=== PATIENT | male | born 1950 | race Caucasian/White ===

== ENCOUNTER → 2016-11-29 | Outpatient (CLI) | payer MEDICARE ==
[~2016-11-29] MED LIST: REGADENOSON 0.4 MG/5 ML SYRINGE IV ONE
--- NOTE | 2016-11-29 10:44 | NM ---
EXAMINATION TYPE: NM stress lexiscan cardiolite DATE OF EXAM: 11/29/2016 COMPARISON: NONE HISTORY: Chest pain, shortness of breath, palpitations, hyperlipidemia, diabetes, hypertension, and f amily history of coronary artery disease. TECHNIQUE: After the intravenous administration of 10.9 mCi Tc 99m Sestamibi - Cardiolite resting SP ECT images acquired 60 minutes post injection. The patient received 0.4mg Lexiscan, 29 mCi Tc 99m Sestamibi - Stress images obtained 37 minutes post injection FINDINGS: Three segment reversible perfusion defect is seen in the interseptal wall image distribution of the r ight coronary artery involving the mid inferior, basal inferior, and basal inferior septal segments. Additional approximately two segment reversible defect is seen apical anterior and mid anterior segme nts with some involvement of the apex. There is an elevated TID of 1.39. This may represent cardiomyopathy and/or balanced 3 vessel ischemia . There is an abnormal estimated left ventricular ejection fraction of 49 %. IMPRESSION: 1. Reversible perfusion defects indicating ischemia in the distribution of the left anterior descendi ng and right coronary arteries. These are 2-3 segment defects. Additionally there is an elevated TID that may represent balanced 3 vessel ischemia and/or cardiomyopathy. 2. Abnormal estimated left ventricular ejection fraction of 49%.
--- NOTE | 2016-11-29 11:06 | EST ---
EXERCISE STRESS DATE OF SERVICE: 11/29/2016 AGE: 66 SEX: Male HT: 5'9" WT: 225 PROTOCOL: Lexiscan Cardiolite STAGE: DURATION OF EXERCISE: HEART RATE REST: 66 BLOOD PRESSURE REST: 138/73 MAXIMUM HEART RATE ACHIEVED: 79 MAXIMUM BLOOD PRESSURE: 158/98 85% MPHR: 129 100% MPHR: 152 METS: INDICATIONS: Short of breath, pain in right leg. CLINICAL INFORMATION: Patient with hypertension and shortness of breath. Referred by Dr. Oconnor for Lexiscan Cardiolite stress test. Baseline heart rate 66 beats per minute. Baseline blood pressure 138/73 mmHg. Baseline 12-lead ECG shows sinus rhythm with [address]-wave depression with T-wave inversion inferolaterally. Patient received Lexiscan infusion per protocol. Heart rate and blood pressure remained normal. There were no symptoms noted. No arrhythmias. No ECG changes noted. IMPRESSION: Baseline abnormality in the 12-lead ECG but without any new changes during Lexiscan infusion. Heart rate and blood pressure remained stable. Nuclear portion of the stress test will be reported separately. MMODL / IJN: [id number] /
== END | disposition home or self-care (01) ==
LOC: RADNMMAIN 07:48
PROVIDERS: ATTEND Internal Medicine Cardiovascular Disease
DX: R94.39 Abnormal result of other cardiovascular function study (principal); R94.31 Abnormal electrocardiogram [ECG] [EKG]; I78.9 Disease of capillaries, unspecified; I20.9 Angina pectoris, unspecified
CPT/HCPCS: 93017; 93922; 78452; A9500; J2785

== ENCOUNTER 2017-01-18 07:58 | Day surgery (SDC) | payer MEDICARE ==
[2017-01-16 13:15] VITALS: BMI 34.7
[~2017-01-18 07:58] MED LIST changes: +ALPRAZolam 0.25 MG TAB PO PRN; +ALPRAZolam 0.5 MG TAB PO PRN; +ASPIRIN 325 MG TAB PO STA; +NITROGLYCERIN SL TABS 0.4 MG TAB SUBLINGUAL PRN; -REGADENOSON 0.4 MG/5 ML SYRINGE IV ONE; +SODIUM CHLORIDE 0.9% 1,000 ML in EMPTY BAG 1 BAG IV ONE
[2017-01-18 08:27] VITALS: TEMP 97.8
[2017-01-18] MEDS ORDERED: INSULIN ASPART 100 UNIT/ML 1 ML 10 ML VIAL SQ ONE (08:44)
[2017-01-18 08:51] LABS: Anisocytosis Slight; Basophils # (A) 0.1 k/uL (0-0.2); Basophils % (A) 2 %; CHCM 31.1; Eosinophils # (A) 0.2 k/uL (0-0.7); Eosinophils % (A) 5 %; HCT 35.4 % (39.0-53.0); HDW 2.69; HGB 11.1 gm/dL (13.0-17.5); Hypochromasia Slight; Luc # (Auto) 0.13; Luc % (Auto) 3; Lymphocytes # (A) 0.9 k/uL (1.0-4.8); Lymphocytes % (A) 17 %; MCH 23.2 pg (25.0-35.0); MCHC 31.3 g/dL (31.0-37.0); MCV 74.2 fL (80.0-100.0); Mean Platelet Volume 7.7; Microcytosis Moderate; Monocytes # (A) 0.4 k/uL (0-1.0); Monocytes % (A) 8 %; Neutrophils # (A) 3.4 k/uL (1.3-7.7); Neutrophils % (A) 66 %; RBC 4.77 m/uL (4.30-5.90); RDW 18.6 % (11.5-15.5); WBC 5.1 k/uL (3.8-10.6); WBC (Perox) 5.19
[2017-01-18 08:55] LABS: Glucose,Whole Blood 216 mg/dL (75-99)
[2017-01-18 09:05] LABS: Anion Gap 12 mmol/L; Blood Urea Nitrogen 15 mg/dL (9-20); Calcium 9.2 mg/dL (8.4-10.2); Carbon Dioxide 22 mmol/L (22-30); Chloride 104 mmol/L (98-107); Glucose 217 mg/dL (74-99); Non-African American GFR(MDRD) >60 (>60 ml/min/1.73 sqM); Potassium 4.9 mmol/L (3.5-5.1); Sodium 138 mmol/L (137-145)
[2017-01-18] MEDS ORDERED: LIDOCAINE 2% INJ 20 MG/ML SQ ONE (09:25)
[2017-01-18] MEDS ORDERED: MIDAZOLAM 2 MG/2 ML VIAL IVP ONE (09:26)
[2017-01-18] MEDS: VERAPAMIL SYRINGE (5 MG/10 ML) INTRAARTER ONE ×2 (09:27→09:46)
[2017-01-18] MEDS ORDERED: HEPARIN SODIUM 1,000 UN/ML (10ML VL) IV ONE (09:27)
[2017-01-18] MEDS ORDERED: HYDROmorphone 2 MG/ML 1 ML SYRINGE IVP ONE (09:33)
[2017-01-18] MEDS ORDERED: IODIXANOL 320 MG/ML 100 ML INTRAARTER ONE (09:45)
[2017-01-18] MEDS ORDERED: IOHEXOL 350 MG/ML 125ML BOTTLE INJ ONE (09:45)
[2017-01-18] MEDS ORDERED: RX INFO: IV CONTRAST WAS GIVEN 1 EACH MISC MISCELLANE PRN (09:52)
[2017-01-18] MEDS ORDERED: SODIUM CHLORIDE 0.9% 1,000 ML IV SCH (10:00)
--- NOTE | 2017-01-18 10:40 | CC ---
CARDIAC CATHETERIZATION REPORT DATE OF SERVICE: 01/18/2017 PERFORMING PHYSICIAN: Kevin Cancino MD, Captain'S Assistant. PROCEDURE PERFORMED: 1. Selective right and left coronary angiogram. 2. Left heart catheterization. 3. Left ventriculography. INDICATION: This is a pleasant 67-year-old gentleman with past medical history significant for diabetes, hypertension, dyslipidemia, and carotid disease, was experiencing intermittent episodes of chest discomfort, concerning for angina. As a matter of fact, he underwent a stress test out of town and that showed multiple areas of ischemia in the LAD and RCA territory as well as transient ischemic dilatation of the LV concerning for severe triple-vessel CAD. In view of that, he was brought today to undergo a heart catheterization. APPROACH: Right radial artery. COMPLICATION: None. LEVEL OF SEDATION: Moderate with sedation length of 27 minutes. PROCEDURE DESCRIPTION: After obtaining an informed consent, the patient was brought to the Cardiac Manager Configuration. The right radial artery was cannulated using micropuncture technique, the micropuncture wire passed easily. Then I placed a 6-Spanish sheath in the right radial artery. Subsequently, I did give the patient 2 mg of verapamil IA and 5000 units of heparin IV. After that, I did selective right and left coronary angiogram using JR4 and JL3.5 catheters. After that, I did left heart catheterization and left ventriculography using 6-Spanish pigtail catheter. The procedure was completed without any complication. SELECTIVE CORONARY ANGIOGRAM: 1. The right coronary artery is a large caliber vessel and it is a dominant vessel. The proximal and mid RCA have mild to moderate diffuse disease beside being heavily calcified. The RCA distally has a tight lesion, appeared to be in the range of 90% and is it is calcified as well. After that, the RCA bifurcates into PDA and PLV branches. The PDA branch is occluded and the PLV branch has mild to moderate diffuse disease. 2. The left main has mild disease, appeared to be in the range of 30% distally. It bifurcates into the left circumflex, ramus intermedius, and left anterior descending artery. 3. The left circumflex is a large caliber vessel and it is a codominant vessel. The proximal left circumflex appeared to have mild disease only. The mid left circumflex appeared to have a lesion in the range of 50%. The RCA proximally gives rise into the first obtuse marginal branch which appeared to be a 2 mm vessel with disease about 50%. After that, the RCA distally is chronically occluded and fills by [id number] collateral. 4. The ramus intermedius is a large caliber vessel with severe disease in the ostium and proximal portion. 5. The left anterior descending artery: The proximal LAD has eccentric lesion, was most seen in the PAIGE cranial view. The lesion appeared to be in the range of 70% to 80%. The mid LAD has mild disease only and the LAD distally appeared to have a tubular lesion in the range of 40% to 50%. HEMODYNAMICS: The left ventricular end-diastolic pressure was 12 mmHg with mild gradient across the aortic valve. Left ventriculography was performed in the PAIGE projection and using a power injection and the left ventricular systolic function is mildly impaired with EF, I would say about 45% with inferobasal hypokinesia, likely related to prior myocardial infarction in the past. CONCLUSION: 1. Heavily calcified right and left coronary systems. 2. Severe triple-vessel coronary artery disease. 3. Chronic total occlusion of the PDA branch of the right coronary artery. 4. Chronic total occlusion of the distal left circumflex. 5. Critical disease involving the ostium and proximal ramus intermedius. 6. Severe disease involving the proximal left anterior descending artery. 7. Mild gradient across the aortic valve. 8. Mildly impaired left ventricular function with ejection fraction about 45%. POSTPROCEDURE MANAGEMENT: 1. Maximize medical treatment. 2. Consult surgeon for the evaluation of coronary artery bypass grafting. 3. Follow up with the patient. MMCABRERA / JUANITON: [id number] /
[2017-01-18 10:44] VITALS: RESP 18
[2017-01-18 12:34] VITALS: BP 148/64; PULSE 55
== END 2017-01-18 15:00 | disposition home or self-care (01) ==
LOC: CATHCVL 07:58
PROVIDERS: ATTEND Internal Medicine Interventional Cardiology
DX: I25.110 Atherosclerotic heart disease of native coronary artery with unstable angina pectoris (principal); I25.84 Coronary atherosclerosis due to calcified coronary lesion; I25.82 Chronic total occlusion of coronary artery; I10 Essential (primary) hypertension; E11.9 Type 2 diabetes mellitus without complications; E78.5 Hyperlipidemia, unspecified; Z82.49 Family history of ischemic heart disease and other diseases of the circulatory system; Z87.891 Personal history of nicotine dependence; Z79.899 Other long term (current) drug therapy; Z79.82 Long term (current) use of aspirin
CPT/HCPCS: 93458; 80048; 85025; C1894; J2001; J2250; J1170; Q9967 ×2; J1644

== ENCOUNTER 2018-09-17 06:58 | Day surgery (SDC) | payer MEDICARE, OTHER ==
[2018-09-15 11:40] VITALS: BMI 32.3
[~2018-09-17 06:58] MED LIST changes: -ALPRAZolam 0.25 MG TAB PO PRN; -ALPRAZolam 0.5 MG TAB PO PRN; -ASPIRIN 325 MG TAB PO STA; +LACTATED RINGERS 1,000 ML IV SCH; +LIDOCAINE 1% 20 ML VIAL (10MG/ML) FOR IV START INTRADERMA PRN; -NITROGLYCERIN SL TABS 0.4 MG TAB SUBLINGUAL PRN; -SODIUM CHLORIDE 0.9% 1,000 ML in EMPTY BAG 1 BAG IV ONE
[2018-09-17 08:15] VITALS: TEMP 97.3
[2018-09-17] MEDS ORDERED: PROPOFOL 10 MG/ML 20 ML VIAL IV ONE (08:15)
[2018-09-17 08:21] LABS: Glucose,Whole Blood 165 mg/dL (75-99)
--- NOTE | 2018-09-17 08:38 | P.PCN ---
Date of Procedure: 09/17/18 Procedure(s) Performed: BRIEF HISTORY: Patient is a 68-year-old pleasant male, scheduled for an elective colonoscopy as a part of surveillance of a large colon polyp that was noted on a recent colonoscopy in April 2018. He had 3 cm broad-based polyp in the descending colon that was removed in a piecemeal fashion and biopsy revealed tubular adenoma. His and scheduled for a surveillance colonoscopy today. PROCEDURE PERFORMED: Colonoscopy. PREOPERATIVE DIAGNOSIS: Follow-up large descending colon polyp on colonoscopy April 2018. IV sedation per Anesthesia. PROCEDURE: After informed consent was obtained, the patient, was brought into the endoscopy unit. IV sedation was administered by Anesthesia under continuous monitoring. Digital rectal examination was normal. Initially the Olympus CF-160 flexible video colonoscope was then inserted in the rectum, gradually advanced into the cecum without any difficulty. Careful examination was performed as the scope was gradually being withdrawn. Ileocecal valve and the appendiceal orifice were visualized and appeared normal. Prep was excellent. Mucosa of the cecum, ascending colon, transverse colon, appeared normal. In the descending colon careful examination was performed and no obvious lesions identified within the previous polypectomy. Rest of the descending colon, sigmoid colon, and rectum appeared normal. Retroflexion was performed in the rectum and no lesions were seen. The patient tolerated the procedure well. IMPRESSION: Normal-appearing colon from rectum to cecum with no evidence of colitis or colorectal neoplasia. RECOMMENDATIONS: Findings of this examination were discussed with the patient as well as his family. He was advised to have a repeat surveillance colonoscopy in 3 years from now as a part of follow-up of prior history of colon polyps.
[2018-09-17 08:48] VITALS: RESP 16
[2018-09-17 08:53] LABS: Glucose,Whole Blood 172 mg/dL (75-99)
[2018-09-17 09:01] VITALS: BP 139/63; PULSE 54
== END 2018-09-17 09:14 | disposition home or self-care (01) ==
LOC: ORWHC2ENDO 06:58
PROVIDERS: ATTEND Internal Medicine Gastroenterology
DX: Z12.11 Encounter for screening for malignant neoplasm of colon (principal); Z86.010 Personal history of colon polyps; I25.10 Atherosclerotic heart disease of native coronary artery without angina pectoris; I10 Essential (primary) hypertension; E78.5 Hyperlipidemia, unspecified; Z85.01 Personal history of malignant neoplasm of esophagus; E11.9 Type 2 diabetes mellitus without complications; E07.9 Disorder of thyroid, unspecified; Z79.02 Long term (current) use of antithrombotics/antiplatelets; Z79.4 Long term (current) use of insulin; Z79.899 Other long term (current) drug therapy; Z95.1 Presence of aortocoronary bypass graft; F43.10 Post-traumatic stress disorder, unspecified; Z79.890 Hormone replacement therapy
CPT/HCPCS: J2704; G0105

== ENCOUNTER 2020-06-15 07:47 | Day surgery (SDC) | payer MEDICARE ==
[2020-06-09 10:55] VITALS: BMI 33.0
[~2020-06-15 07:47] MED LIST changes: +ALPRAZolam 0.25 MG TAB PO PRN; +ALPRAZolam 0.5 MG TAB PO PRN; +ASPIRIN 325 MG TAB PO PRN; +HEPARIN SODIUM,PORCINE 10,000 UNIT in SODIUM CHLORIDE 0.9% 1,000 ML IRRIGATION PRN; +HEPARIN SODIUM,PORCINE 2,500 UNIT in SODIUM CHLORIDE 0.9% 250 ML IRRIGATION PRN; -LACTATED RINGERS 1,000 ML IV SCH; -LIDOCAINE 1% 20 ML VIAL (10MG/ML) FOR IV START INTRADERMA PRN; +SODIUM CHLORIDE 0.9% 1,000 ML in EMPTY BAG 1 BAG IV ONE; +ZOLPIDEM 5 MG TAB PO PRN
[2020-06-15 08:23] LABS: Glucose,Whole Blood 191 mg/dL (75-99)
[2020-06-15 08:34] LABS: Basophils # (A) 0.1 k/uL (0-0.2); Basophils % (A) 1 %; Eosinophils # (A) 0.6 k/uL (0-0.7); Eosinophils % (A) 6 %; HCT 36.8 % (39.0-53.0); HGB 13.2 gm/dL (13.0-17.5); Lymphocytes # (A) 1.3 k/uL (1.0-4.8); Lymphocytes % (A) 13 %; MCH 29.5 pg (25.0-35.0); MCHC 35.8 g/dL (31.0-37.0); MCV 82.4 fL (80.0-100.0); Mean Platelet Volume 7.4; Monocytes # (A) 0.8 k/uL (0-1.0); Monocytes % (A) 8 %; Neutrophils # (A) 7.4 k/uL (1.3-7.7); Neutrophils % (A) 72 %; Platelet Count 270 k/uL (150-450); RBC 4.46 m/uL (4.30-5.90); RDW 15.1 % (11.5-15.5); WBC 10.3 k/uL (3.8-10.6)
[2020-06-15 08:35] LABS: ALT 20 U/L (4-49); African American GFR (CKD) >90 (>60 ml/min/1.73 sqM); Albumin 4.3 g/dL (3.5-5.0); Anion Gap 11 mmol/L; Blood Urea Nitrogen 19 mg/dL (9-20); Calcium 9.2 mg/dL (8.4-10.2); Carbon Dioxide 22 mmol/L (22-30); Chloride 99 mmol/L (98-107); Glucose 188 mg/dL (74-99); Non-African American GFR(CKD) 86 (>60 ml/min/1.73 sqM); Sodium 132 mmol/L (137-145); Total Bilirubin 0.6 mg/dL (0.2-1.3); Total Protein 6.8 g/dL (6.3-8.2)
[2020-06-15 08:49] LABS: AST 30 U/L (17-59); Alkaline Phosphatase 69 U/L (38-126); Potassium 5.2 mmol/L (3.5-5.1)
[2020-06-15] MEDS ORDERED: MIDAZOLAM 2 MG/2 ML VIAL IVP ONE ×2 (08:50→09:29)
[2020-06-15] MEDS ORDERED: LIDOCAINE 1% INJ 10MG/ML (20 ML MDV) SQ ONE (08:56)
[2020-06-15] MEDS ORDERED: HEPARIN SODIUM 1,000 UN/ML (10ML VL) IV ONE (09:03)
[2020-06-15] MEDS ORDERED: NITROGLYCERIN 1000MCG/10ML SYRINGE INTRAARTER ONE (09:47)
[2020-06-15] MEDS ORDERED: niCARdipine Syringe (1,000 mcg/10 mL) INTRAARTER ONE (09:49)
[2020-06-15] MEDS ORDERED: fentaNYL (PF) 50 MCG/ML 2 ML AMP IV ONE (10:00)
[2020-06-15] MEDS ORDERED: IOPAMIDOL-250 100ML BTL INTRAARTER ONE (10:00)
[2020-06-15] MEDS ORDERED: SODIUM CHLORIDE 0.9% 1,000 ML in EMPTY BAG 1 BAG IV SCH (10:15)
--- NOTE | 2020-06-15 10:44 | IR ---
EXAMINATION TYPE: IR stent intravas non coronary DATE OF EXAM: 06/15/2020 COMPARISON: NONE HISTORY: Fluoroscopy time. Fluoroscopy was provided to the referring clinician.
--- NOTE | 2020-06-15 10:59 | AN ---
ANGIOGRAPHY REPORT PERCUTANEOUS PERIPHERAL INTERVENTION: DATE OF SERVICE: June 15, 2020 PERFORMING PHYSICIAN: Kevin Cancino MD. PROCEDURE PERFORMED: 1. Atherectomy of the left SFA using the TurboHawk device with extraction of significant amount of plaque. 2. Successful stenting of the mid left SFA using 7.0 x 100 mm Zilver PTX drug-coated stent. 3. Successful balloon angioplasty of the proximal left SFA using 6.0 x 60 drug-coated balloon. 4. Intravascular ultrasound (IVUS) of the left SFA. 5. Successful stenting of the right external iliac artery using 8 x 37 mm balloon expandable stent with an excellent angiographic result. 6. Intravascular ultrasound (IVUS) of the right external iliac artery. 7. Left lower extremity angiogram. 8. Selective right external iliac artery and right common femoral artery angiogram. 9. Ultrasound guided access of the right common femoral artery. INDICATION: Bilateral lower extremities intermittent claudication with this 70-year-old gentleman with known to have coronary artery disease and peripheral arterial disease who underwent recently an angiogram and that showed severe disease involving the right external iliac artery and left SFA. APPROACH: Right common femoral artery. COMPLICATION: None. LEVEL OF SEDATION: Moderate with sedation length of 70 minutes. ACCESS: Right common femoral artery. PROCEDURE DESCRIPTION: After obtaining an informed consent, the patient was brought to the cardiac coreroom foundry laborer. The right common femoral artery was cannulated using ultrasound guidance and then I placed a 70 cm 6-Spanish sheath, which was a Raabe sheath at the right common femoral artery. Please note that I pre-dilated the artery using 5 and then 6 and then 7 mm dilator because the right common femoral artery was extremely calcified. I did select the left SFA using 0.035 stiff Glidewire with 5-Spanish RIM catheter. After that I did advance the 6-Spanish Raabe sheath over the RIM catheter and 0.035 stiff Glidewire to the left common femoral artery up and over. I did left lower extremity angiogram which revealed one vessel runoff with anterior tibial artery with stent in the distal left SFA and left popliteal appeared to have intermediate in-stent restenosis with severe disease involving the proximal and mid left SFA. Also, there was questionable spontaneous dissection in the mid left SFA. Anticoagulation was initiated using heparin and the patient was given a total of 10,000 units of heparin with continuous ACT monitoring throughout the procedure. After that, I did wire the left SFA using 0.014 wire. That was on hydro ST wire. Intravascular ultrasound confirmed the spontaneous dissection in the mid left SFA and confirmed significant plaque in the proximal left SFA with an area of stenosis at least 80%. Atherectomy of the proximal left SFA was performed using the TurboHawk device with extraction of significant plaque. Balloon angioplasty was performed using 6 mm x 120 mm balloon. The following angiogram continues to show the dissection in the mid left SFA with good results in the proximal left SFA. For that reason, I decided to stent the mid left SFA and balloon the proximal left SFA. Stenting of the mid left SFA was performed using 7 x 100 mm Zilver PTX drug-coated stent where the stent was positioned under fluoroscopic guidance and deployed under fluoroscopic guidance. Post dilatation was performed using 6 mm balloon. I did after that balloon angioplasty of the proximal left SFA using a drug-coated balloon which was 6 x 80 mm. The following angiogram showed great angiographic results with completion of picture on the left side showed good flow in the left anterior tibial artery. After that I did advance the dilator of the long sheath inside the sheath and I pulled the sheath all the way proximal to the lesion in the right external iliac artery where I did selective right external iliac artery angiogram which showed intermediate to severe lesion confirmed by intravascular ultrasound to be at least 70% area of stenosis and for that reason I decided to stent that segment. I did direct stenting using 8 x 37 mm balloon expandable stent. The stent was positioned under fluoroscopic guidance and deployed under fluoroscopic guidance as well. It was deployed under 14 atmospheres for 20 seconds. The following angiogram showed excellent angiographic results and the procedure was completed without any complication. After that I did exchange my long sheath into short sheath using 0.035 stiff Glidewire before I did selective right common femoral artery angiogram. The procedure was completed without any complication. POSTPROCEDURE MANAGEMENT: 1. Dual anti-platelet therapy. 2. Aggressive cholesterol control. 3. Risk factor modifications. 4. Follow up with the patient. MMODL / IJN: [id number] /
[2020-06-15] MEDS ORDERED: hydrALAZINE HCL 20 MG/ML 1 ML VIAL ONE (12:39)
[2020-06-15] MEDS: GABAPENTIN 400 MG CAP PO SCH (16:52)
[2020-06-15] MEDS: glipiZIDE 10 MG TAB PO SCH (17:12)
[2020-06-15 17:43] LABS: Glucose,Whole Blood 190 mg/dL (75-99)
[2020-06-15] MEDS: METOPROLOL TARTRATE 12.5 MG TAB PO SCH (20:08)
[2020-06-15 20:17] LABS: Glucose,Whole Blood 229 mg/dL (75-99)
[2020-06-15] MEDS ORDERED: GABAPENTIN 400 MG CAP PO SCH (21:00)
[2020-06-15] MEDS ORDERED: ATORVASTATIN 40 MG TAB PO SCH (21:00)
[2020-06-16 06:05] LABS: Basophils # (A) 0.1 k/uL (0-0.2); Basophils % (A) 1 %; Eosinophils # (A) 0.5 k/uL (0-0.7); Eosinophils % (A) 7 %; HCT 36.4 % (39.0-53.0); HGB 12.7 gm/dL (13.0-17.5); Lymphocytes # (A) 1.1 k/uL (1.0-4.8); Lymphocytes % (A) 15 %; MCH 28.8 pg (25.0-35.0); MCHC 34.8 g/dL (31.0-37.0); MCV 82.9 fL (80.0-100.0); Mean Platelet Volume 7.3; Monocytes # (A) 0.6 k/uL (0-1.0); Monocytes % (A) 9 %; Neutrophils # (A) 4.7 k/uL (1.3-7.7); Neutrophils % (A) 67 %; Platelet Count 228 k/uL (150-450); RBC 4.39 m/uL (4.30-5.90); RDW 14.8 % (11.5-15.5); WBC 7.1 k/uL (3.8-10.6)
[2020-06-16 06:19] LABS: African American GFR (CKD) >90 (>60 ml/min/1.73 sqM); Anion Gap 6 mmol/L; Blood Urea Nitrogen 13 mg/dL (9-20); Calcium 9.5 mg/dL (8.4-10.2); Carbon Dioxide 27 mmol/L (22-30); Chloride 101 mmol/L (98-107); Glucose 186 mg/dL (74-99); Non-African American GFR(CKD) >90 (>60 ml/min/1.73 sqM); Potassium 4.8 mmol/L (3.5-5.1); Sodium 134 mmol/L (137-145)
[2020-06-16] MEDS ORDERED: LEVOTHYROXINE 100 MCG TAB PO SCH (06:30)
[2020-06-16 07:08] LABS: Glucose,Whole Blood 190 mg/dL (75-99)
[2020-06-16] MEDS: METOPROLOL TARTRATE 12.5 MG TAB PO SCH (07:24)
[2020-06-16] MEDS: glipiZIDE 10 MG TAB PO SCH (07:24)
[2020-06-16] MEDS: GABAPENTIN 400 MG CAP PO SCH (07:24)
[2020-06-16] MEDS ORDERED: PANTOPRAZOLE 40 MG TABLET PO SCH (07:30)
[2020-06-16 08:05] VITALS: BP 119/71; PULSE 67; RESP 18; TEMP 97.8
[2020-06-16] MEDS ORDERED: ASCORBIC ACID 500 MG TAB PO SCH (09:00)
[2020-06-16] MEDS ORDERED: CLOPIDOGREL 75 MG TAB PO SCH (09:00)
[2020-06-16] MEDS ORDERED: FERROUS SULFATE 325 MG TAB PO SCH (09:00)
[2020-06-16] MEDS ORDERED: DOCUSATE 100 MG CAP PO SCH (09:00)
[2020-06-16] MEDS ORDERED: ASPIRIN 81 MG PO SCH (09:00)
--- NOTE | 2020-06-16 09:06 | P.DS ---
Providers Date of admission: June 152020 Attending physician: Kevin Cancino Primary care physician: [facility] Course: This is a 70-year-old gentleman who underwent yesterday successful atherectomy and balloon angioplasty of the left SFA with a good angiographic results and without any complication. The patient was seen today. The right groin is soft and nontender and without any bruises. The patient is going to be discharged home on dual antiplatelet therapy along with high intensity statin and I will follow-up with the patient in the week in the office Plan - Discharge Summary Discharge Rx Participant: No New Discharge Prescriptions: Continue Esomeprazole Magnesium [NexIUM] 40 mg PO DAILY glyBURIDE/METFORMIN HCL [Glucovance 5-500 mg] 2 tab PO AC-BID Gabapentin [Neurontin] 800 mg PO BID@0800,1500 Clopidogrel Bisulfate [Plavix] 75 mg PO DAILY Gabapentin [Neurontin] 2,400 mg PO HS Metoprolol Tartrate [Lopressor] 12.5 mg PO BID tab Levothyroxine Sodium [Synthroid] 200 mcg PO DAILY Atorvastatin [Lipitor] 40 mg PO HS Aspirin [Adult Low Dose Aspirin EC] 81 mg PO DAILY Insulin Detemir (Levemir) [Levemir] 10 - 15 unit SQ HS Insulin Aspart [NovoLOG] 0 units SQ ACHS Ascorbic Acid [Vitamin C] 250 mg PO DAILY Stool Softener 1 tab PO DAILY Ferrous Sulfate [Iron] 325 mg PO Q48H Discharge Medication List Clopidogrel Bisulfate [Plavix] 75 mg PO DAILY 01/14/17 [History] Esomeprazole Magnesium [NexIUM] 40 mg PO DAILY 01/14/17 [History] Gabapentin [Neurontin] 800 mg PO BID@0800,1500 01/14/17 [History] glyBURIDE/METFORMIN HCL [Glucovance 5-500 mg] 2 tab PO AC-BID 01/14/17 [History] Gabapentin [Neurontin] 2,400 mg PO HS 01/16/17 [History] Metoprolol Tartrate [Lopressor] 12.5 mg PO BID tab 02/14/17 [Rx] Atorvastatin [Lipitor] 40 mg PO HS 02/19/17 [History] Levothyroxine Sodium [Synthroid] 200 mcg PO DAILY 02/19/17 [History] Aspirin [Adult Low Dose Aspirin EC] 81 mg PO DAILY 09/15/18 [History] Insulin Aspart [NovoLOG] 0 units SQ ACHS 09/15/18 [History] Insulin Detemir (Levemir) [Levemir] 10 - 15 unit SQ HS 09/15/18 [History] Ascorbic Acid [Vitamin C] 250 mg PO DAILY 06/09/20 [History] Ferrous Sulfate [Iron] 325 mg PO Q48H 06/09/20 [History] Stool Softener 1 tab PO DAILY 06/09/20 [History] Follow up Appointment(s)/Referral(s): Kevin Cancino MD [STAFF PHYSICIAN] - 06/24/20 1:45 pm (appointment at main office location on [address] Patient Instructions/Handouts: Peripheral Vascular Angioplasty (DC), Procedural Sedation (ED), Peripheral Vascular Stent Placement (DC)
[2020-06-17] MEDS ORDERED: metFORMIN 500 MG TAB PO SCH (07:30)
--- NOTE | 2020-06-20 13:32 | CDI ---
Outpatient Documentation Clarification Form Date: 06/20/20 CDS/Sales Floor Associate Name: Ekta Miller Phone: if any questions, call Nithya Roberson Esol Instructor at Patient Name: Kimani Marie Admit Date: 06/15/20 Discharge Date: 06/15/20 ATTENTION: The [facility] Coding Staff appreciate your assistance in clarifying documentation. Please respond to the clarification below the line at the bottom and electronically sign. The [facility] Coding Staff will review the response and follow-up if needed. Please note: Queries are made part of the Legal Health Record. if you have any questions, please contact the Esol Instructor. Dear Dr. Cancino, Please provide clarification as to the cause of the occlusive PAD. PAD/PVD is considered unspecified. Greatest specificity is required for medical necessity support. Is underlying cause of Occlusive PAD one of the following? Arteriosclerotic disease of the arteries arteritis Necrotic Due to embolism/thrombosis Other - please specify below Thank you for your kind of consideration, MTDD
== END 2020-06-16 09:50 | disposition home or self-care (01) ==
LOC: CATHCVL 07:47 → 6NMEDSUR 10:00 → CATHCVL 06-16 09:50
PROVIDERS: ATTEND Internal Medicine Interventional Cardiology
DX: I70.213 Atherosclerosis of native arteries of extremities with intermittent claudication, bilateral legs (principal); E11.51 Type 2 diabetes mellitus with diabetic peripheral angiopathy without gangrene; I10 Essential (primary) hypertension; E78.5 Hyperlipidemia, unspecified; Z82.49 Family history of ischemic heart disease and other diseases of the circulatory system; Z72.0 Tobacco use; Z95.1 Presence of aortocoronary bypass graft; I25.10 Atherosclerotic heart disease of native coronary artery without angina pectoris; Z79.02 Long term (current) use of antithrombotics/antiplatelets; Z79.82 Long term (current) use of aspirin; Z79.4 Long term (current) use of insulin; Z79.899 Other long term (current) drug therapy
CPT/HCPCS: 37221; 37227; 37252; 37253; 80053; 80048; 85025 ×2; C1894 ×2; C1769 ×5; C1714; J2250; J0360; J2001; J3010; J1644; Q9966

== ENCOUNTER 2021-06-08 17:18 | Emergency (ER) | payer MEDICARE ==
[2021-06-08 17:28] VITALS: TEMP 98
[2021-06-08] MEDS ORDERED: SODIUM CHLORIDE 0.9% 500 ML 500 ML IV STA (18:12)
--- NOTE | 2021-06-08 18:12 | ED ---
General Adult HPI - General Chief complaint: Recheck/Abnormal Lab/Rx Stated complaint: Hypertensive Time Seen by Provider: 06/08/21 18:00 Source: patient, family, RN notes reviewed, old records reviewed Mode of arrival: ambulatory Limitations: no limitations - History of Present Illness Initial comments: 71-year-old male with oriented 4, presents with his complaining of elevated blood pressure today. Patient was placed timing his primary care d fishwy and had 3 elevated blood pressure readings. His primary care doctor told him to take an additional 25 mg of metoprolol and recheck if it remains high. Patient did have an episode of vomiting after taking the pill so he took an additional 25 mg. Blood pressure remains high. Denies any chest pain or difficulty breathing but does state that he has had a cough with mucus and congestion. He did have 2 episodes of vomiting which she thinks may have been related to the mucus. He is taking antibiotics prescribed 06/05/21 by his doctor for this upper respiratory illness. He is also taking Mucinex. -: days(s) (1) Severity scale (1-10): 0 Associated Symptoms: nausea/vomiting (x2), other (dizziness) Treatments Prior to Arrival: other (additional 25 mg of metoprolol) - Related Data Home Medications Medication Instructions Recorded Confirmed Clopidogrel Bisulfate [Plavix] 75 mg PO DAILY@0700 01/14/17 06/08/21 Esomeprazole Magnesium [NexIUM] 40 mg PO DAILY@0700 01/14/17 06/08/21 glyBURIDE/METFORMIN HCL 2 tab PO AC-BID@0700,1600 01/14/17 06/08/21 [Glucovance 5-500 mg] Aspirin [Adult Low Dose Aspirin EC] 81 mg PO DAILY@0700 09/15/18 06/08/21 Ascorbic Acid [Vitamin C] 250 mg PO BID 06/08/21 06/08/21 Atorvastatin Calcium [Lipitor] 40 mg PO HS@2100 06/08/21 06/08/21 Fluticasone Nasal [place] [Flonase 1 spray EA NOSTRIL DAILY 06/08/21 06/08/21 Nasal [place]] Gabapentin [Neurontin] 2,000 mg PO HS@2100 06/08/21 06/08/21 Gabapentin [Neurontin] 800 mg PO BID@0700,1600 06/08/21 06/08/21 Levothyroxine Sodium 150 mcg PO DAILY@0700 06/08/21 06/08/21 Metoprolol Tartrate [Lopressor] 50 mg PO BID@0700,1600 06/08/21 06/08/21 Venlafaxine HCl [Effexor] 75 mg PO BID@0700,1600 06/08/21 06/08/21 lisinopriL [Zestril] 5 mg PO DAILY@0700 06/08/21 06/08/21 Allergies Allergy/AdvReac Type Severity Reaction Status Date / Time No Known Allergies Allergy Verified 06/08/21 21:02 Review of Systems ROS Statement: Those systems with pertinent positive or pertinent negative responses have been documented in the HPI. ROS Other: All systems not noted in ROS Statement are negative. Past Medical History Past Medical History: Cancer, Diabetes Mellitus, Eye Disorder, GERD/Reflux, Hyperlipidemia, Hypertension, Osteoarthritis (OA), Thyroid Disorder, Vascular Disorder Additional Past Medical History / Comment(s): Hx Throat Cancer, 2007. Seasonal allergies. 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 History of Any Multi-Drug Resistant Organisms: None Reported Past Surgical History: Coronary Bypass/CABG Additional Past Surgical History / Comment(s): 2 stents carotid artery, "catheterization bilateral legs", bilateral cataracts with lens implants. Past Anesthesia/Blood Transfusion Reactions: No Reported Reaction Past Psychological History: PTSD Smoking Status: Former smoker Past Alcohol Use History: Occasional Past Drug Use History: None Reported - Past Family History Mother Family Medical History: No Reported History General Exam Limitations: no limitations General appearance: alert, in no apparent distress Head exam: Present: atraumatic, normocephalic, normal inspection Eye exam: Present: other (Right pupil dilated abnormal shape vision loss several years ago). Absent: scleral icterus, conjunctival injection, periorbital swelling ENT exam: Present: normal exam, normal oropharynx, mucous membranes moist Neck exam: Present: normal inspection, full ROM. Absent: tenderness, meningismus, lymphadenopathy, thyromegaly Respiratory exam: Present: normal lung sounds bilaterally. Absent: respiratory distress, wheezes, rales, rhonchi, stridor, chest wall tenderness, accessory muscle use Cardiovascular Exam: Present: regular rate, normal heart sounds. Absent: JVD GI/Abdominal exam: Present: soft. Absent: distended, tenderness, normal bowel sounds Extremities exam: Present: normal capillary refill. Absent: pedal edema Neurological exam: Present: alert, oriented X3 Psychiatric exam: Present: normal affect, normal mood Skin exam: Present: warm, dry, intact, normal color. Absent: cyanosis, diaphoretic, petechiae, pallor Course Vital Signs 06/08/21 06/08/21 06/08/21 17:25 18:58 19:51 Temperature 98 F Pulse Rate 72 62 66 Respiratory 16 18 18 Rate Blood Pressure 211/92 189/79 216/97 O2 Sat by Pulse 93 L 94 L 98 Oximetry 06/08/21 06/08/21 06/08/21 20:15 20:37 20:50 Temperature Pulse Rate Respiratory Rate Blood Pressure 192/92 184/77 115/67 O2 Sat by Pulse Oximetry 06/08/21 21:10 Temperature Pulse Rate 65 Respiratory 18 Rate Blood Pressure 135/67 O2 Sat by Pulse 98 Oximetry EKG Findings - EKG Results: EKG shows: bradycardia (Ventricular rate of 59, [place] interval 0.177, QRS 0.107, QTC 0.451) Medical Decision Making - Medical Decision Making Patient presents with elevated blood pressure today sent by his primary care doctor. He also had an episode of dizziness and vomiting. Influenza and covid swabs are negative. BUN and creatinine and GFR were within normal limits. Troponin is negative at 0.012, EKG shows no acute changes. There is no evidence of leukocytosis. Chest x-ray shows no acute cardiopulmonary disease process. There are surgical clips noted over the mediastinum. Patient was given 2 doses of hydralazine with adequate response. No nausea or vomiting in the emergency room, no dizziness, chest pain or shortness of breath. Patient is feeling better and ready to be discharged home. I did explain to the patient to return to the emergency room with a new or concerning symptoms including chest pain, dizziness, shortness of breath or persistent nausea vomiting. I directed the patient to call his doctor in the morning to make any dose adjustments. Patient and his are agreeable to this plan of care. Case discussed with Dr. Sims - Lab Data Result diagrams: 06/08/21 18:19 06/08/21 18:19 Lab Results 06/08/21 06/08/21 06/08/21 Range/Units 18:19 18:19 18:19 WBC 9.3 (3.8-10.6) k/uL RBC 4.98 (4.30-5.90) m/uL Hgb 13.2 (13.0-17.5) gm/dL Hct 40.9 (39.0-53.0) % MCV 82.1 (80.0-100.0) fL MCH 26.5 (25.0-35.0) pg MCHC 32.3 (31.0-37.0) g/dL RDW 14.1 (11.5-15.5) % Plt Count 236 (150-450) k/uL MPV 7.7 Neutrophils % 86 % Lymphocytes % 9 % Monocytes % 3 % Eosinophils % 1 % Basophils % 1 % Neutrophils # 8.0 H (1.3-7.7) k/uL Lymphocytes # 0.9 L (1.0-4.8) k/uL Monocytes # 0.3 (0-1.0) k/uL Eosinophils # 0.1 (0-0.7) k/uL Basophils # 0.1 (0-0.2) k/uL PT 10.5 (9.0-12.0) sec INR 1.0 (<1.2) APTT 22.0 (22.0-30.0) sec Sodium 130 L (137-145) mmol/L Potassium 4.5 (3.5-5.1) mmol/L Chloride 95 L (98-107) mmol/L Carbon Dioxide 26 (22-30) mmol/L Anion Gap 9 mmol/L BUN 16 (9-20) mg/dL Creatinine 0.60 L (0.66-1.25) mg/dL Est GFR (CKD-EPI)AfAm >90 (>60 ml/min/1.73 sqM) Est GFR (CKD-EPI)NonAf >90 (>60 ml/min/1.73 sqM) Glucose 265 H (74-99) mg/dL Calcium 9.1 (8.4-10.2) mg/dL Magnesium 1.5 L (1.6-2.3) mg/dL Total Bilirubin 0.6 (0.2-1.3) mg/dL AST 21 (17-59) U/L ALT 22 (4-49) U/L Alkaline Phosphatase 67 (38-126) U/L Troponin I (0.000-0.034) ng/mL Total Protein 6.9 (6.3-8.2) g/dL Albumin 4.4 (3.5-5.0) g/dL Influenza Type A (PCR) (Not Detectd) Influenza Type B (PCR) (Not Detectd) RSV (PCR) (Not Detectd) SARS-CoV-2 (PCR) (Not Detectd) 06/08/21 06/08/21 Range/Units 18:19 18:57 WBC (3.8-10.6) k/uL RBC (4.30-5.90) m/uL Hgb (13.0-17.5) gm/dL Hct (39.0-53.0) % MCV (80.0-100.0) fL MCH (25.0-35.0) pg MCHC (31.0-37.0) g/dL RDW (11.5-15.5) % Plt Count (150-450) k/uL MPV Neutrophils % % Lymphocytes % % Monocytes % % Eosinophils % % Basophils % % Neutrophils # (1.3-7.7) k/uL Lymphocytes # (1.0-4.8) k/uL Monocytes # (0-1.0) k/uL Eosinophils # (0-0.7) k/uL Basophils # (0-0.2) k/uL PT (9.0-12.0) sec INR (<1.2) APTT (22.0-30.0) sec Sodium (137-145) mmol/L Potassium (3.5-5.1) mmol/L Chloride (98-107) mmol/L Carbon Dioxide (22-30) mmol/L Anion Gap mmol/L BUN (9-20) mg/dL Creatinine (0.66-1.25) mg/dL Est GFR (CKD-EPI)AfAm (>60 ml/min/1.73 sqM) Est GFR (CKD-EPI)NonAf (>60 ml/min/1.73 sqM) Glucose (74-99) mg/dL Calcium (8.4-10.2) mg/dL Magnesium (1.6-2.3) mg/dL Total Bilirubin (0.2-1.3) mg/dL AST (17-59) U/L ALT (4-49) U/L Alkaline Phosphatase (38-126) U/L Troponin I <0.012 (0.000-0.034) ng/mL Total Protein (6.3-8.2) g/dL Albumin (3.5-5.0) g/dL Influenza Type A (PCR) Not Detected (Not Detectd) Influenza Type B (PCR) Not Detected (Not Detectd) RSV (PCR) Not Detected (Not Detectd) SARS-CoV-2 (PCR) Not Detected (Not Detectd) Disposition Clinical Impression: Hypertension Disposition: HOME SELF-CARE Condition: Good Instructions (If sedation given, give patient instructions): Hypertension (ED) Additional Instructions: You were given 2 doses of hydralazine 10 mg IV each in the emergency room. Call your primary care doctor tomorrow morning to discuss changing your medications or increasing any dosages. Return to the emergency room with any new or concerning symptoms. Is patient prescribed a controlled substance at d/c from ED?: No Referrals: Malvin Kee MD [Primary Care Provider] - 1-2 days Time of Disposition: 21:19
[2021-06-08 18:37] LABS: Basophils # (A) 0.1 k/uL (0-0.2); Basophils % (A) 1 %; Eosinophils # (A) 0.1 k/uL (0-0.7); Eosinophils % (A) 1 %; HCT 40.9 % (39.0-53.0); HGB 13.2 gm/dL (13.0-17.5); Lymphocytes # (A) 0.9 k/uL (1.0-4.8); Lymphocytes % (A) 9 %; MCH 26.5 pg (25.0-35.0); MCHC 32.3 g/dL (31.0-37.0); MCV 82.1 fL (80.0-100.0); Mean Platelet Volume 7.7; Monocytes # (A) 0.3 k/uL (0-1.0); Monocytes % (A) 3 %; Neutrophils % (A) 86 %; Platelet Count 236 k/uL (150-450); RBC 4.98 m/uL (4.30-5.90); RDW 14.1 % (11.5-15.5); WBC 9.3 k/uL (3.8-10.6)
[2021-06-08 18:46] LABS: ALT 22 U/L (4-49); AST 21 U/L (17-59); African American GFR (CKD) >90 (>60 ml/min/1.73 sqM); Albumin 4.4 g/dL (3.5-5.0); Alkaline Phosphatase 67 U/L (38-126); Anion Gap 9 mmol/L; Blood Urea Nitrogen 16 mg/dL (9-20); Calcium 9.1 mg/dL (8.4-10.2); Carbon Dioxide 26 mmol/L (22-30); Chloride 95 mmol/L (98-107); Glucose 265 mg/dL (74-99); Magnesium 1.5 mg/dL (1.6-2.3); Non-African American GFR(CKD) >90 (>60 ml/min/1.73 sqM); Potassium 4.5 mmol/L (3.5-5.1); Sodium 130 mmol/L (137-145); Total Bilirubin 0.6 mg/dL (0.2-1.3); Total Protein 6.9 g/dL (6.3-8.2)
[2021-06-08 18:50] LABS: Prothrombin Time 10.5 sec (9.0-12.0)
[2021-06-08] MEDS ORDERED: hydrALAZINE HCL 20 MG/ML 1 ML VIAL IVP STA ×2 (18:57→19:53)
[2021-06-08 18:59] VITALS: RESP 18
--- NOTE | 2021-06-08 19:15 | XR ---
EXAMINATION TYPE: XR chest 2V DATE OF EXAM: 06/08/2021 6:27 PM COMPARISON:Chest radiographs from 02/19/2017 TECHNIQUE: XR chest 2V Frontal and lateral views of the chest. CLINICAL INDICATION:Male, 71 years old with history of Chest Pain; FINDINGS: Lungs/Pleura: There is no evidence of pleural effusion, focal consolidation, or pneumothorax. Pulmonary vascularity: Unremarkable. Heart/mediastinum: Cardiomediastinal silhouette is enlarged and stable. Musculoskeletal: No acute osseous pathology. Midline sternotomy wires and surgical clips project over the mediastinum. IMPRESSION: 1. No acute cardiopulmonary disease/process. 2. Postsurgical changes mediastinum with stable mild cardiomegaly.
[2021-06-08] MEDS ORDERED: MAGNESIUM OXIDE 400 MG TAB PO STA (19:54)
[2021-06-08 21:23] VITALS: BP 135/67; PULSE 65
== END 2021-06-08 21:30 | disposition home or self-care (01) ==
LOC: EC 17:18
DX: I10 Essential (primary) hypertension (principal); Z20.822 Contact with and (suspected) exposure to COVID-19; E11.9 Type 2 diabetes mellitus without complications; E78.5 Hyperlipidemia, unspecified; K21.9 Gastro-esophageal reflux disease without esophagitis; M19.90 Unspecified osteoarthritis, unspecified site; Z87.891 Personal history of nicotine dependence; Z79.02 Long term (current) use of antithrombotics/antiplatelets; Z79.82 Long term (current) use of aspirin; Z79.84 Long term (current) use of oral hypoglycemic drugs; Z79.890 Hormone replacement therapy; Z79.899 Other long term (current) drug therapy
CPT/HCPCS: 36415; 93005; 80053; 83735; 84484; 85025; 85610; 85730; 87636; 71046; 99284; 96374; 96376; J0360

== ENCOUNTER 2021-08-31 06:51 | Day surgery (SDC) | payer MEDICARE ==
[2021-08-30 09:04] VITALS: BMI 33.2
[2021-08-31] MEDS ORDERED: SODIUM CHLORIDE 0.9% 1,000 ML IV ONE (07:35)
[2021-08-31 07:40] LABS: Glucose,Whole Blood 170 mg/dL (70-110)
[2021-08-31 08:00] LABS: Basophils # (A) 0.1 k/uL (0-0.2); Basophils % (A) 2 %; Eosinophils # (A) 0.5 k/uL (0-0.7); Eosinophils % (A) 7 %; HCT 39.3 % (39.0-53.0); HGB 12.9 gm/dL (13.0-17.5); Lymphocytes # (A) 1.3 k/uL (1.0-4.8); Lymphocytes % (A) 18 %; MCH 26.8 pg (25.0-35.0); MCHC 32.7 g/dL (31.0-37.0); Mean Platelet Volume 8.5; Monocytes # (A) 0.6 k/uL (0-1.0); Monocytes % (A) 8 %; Neutrophils # (A) 4.5 k/uL (1.3-7.7); Neutrophils % (A) 64 %; Platelet Count 213 k/uL (150-450); RBC 4.79 m/uL (4.30-5.90); RDW 14.1 % (11.5-15.5); WBC 7.1 k/uL (3.8-10.6)
[2021-08-31 08:08] LABS: African American GFR (CKD) >90 (>60 ml/min/1.73 sqM); Anion Gap 11 mmol/L; Blood Urea Nitrogen 19 mg/dL (9-20); Calcium 8.9 mg/dL (8.4-10.2); Carbon Dioxide 24 mmol/L (22-30); Chloride 101 mmol/L (98-107); Glucose 159 mg/dL (74-99); Non-African American GFR(CKD) 88 (>60 ml/min/1.73 sqM); Potassium 4.9 mmol/L (3.5-5.1); Sodium 136 mmol/L (137-145)
[2021-08-31] MEDS ORDERED: VERAPAMIL 2.5 MG/ML 2 ML AMP ONE (10:53)
[2021-08-31] MEDS ORDERED: HEPARIN SODIUM 1,000 UN/ML (10ML VL) ONE (11:06)
[2021-08-31] MEDS ORDERED: MIDAZOLAM 2 MG/2 ML VIAL IVP ONE (11:21)
[2021-08-31] MEDS ORDERED: LIDOCAINE 0.5% (PF) 5 MG/ML (50 ML SDV) SQ ONE (11:23)
[2021-08-31] MEDS ORDERED: HEPARIN SODIUM 1,000 UN/ML (10ML VL) IV ONE (11:47)
[2021-08-31] MEDS ORDERED: hydrALAZINE HCL 20 MG/ML 1 ML VIAL ONE (12:03)
[2021-08-31] MEDS ORDERED: hydrALAZINE HCL 20 MG/ML 1 ML VIAL IV ONE (12:07)
[2021-08-31] MEDS ORDERED: CLOPIDOGREL 75 MG TAB ONE (12:24)
[2021-08-31] MEDS ORDERED: CLOPIDOGREL 75 MG TAB PO ONE (12:25)
[2021-08-31] MEDS ORDERED: IOPAMIDOL-370 125ML BTL INJ ONE (12:27)
[2021-08-31] MEDS ORDERED: IOPAMIDOL-250 100ML BTL INTRAARTER ONE (12:27)
[2021-08-31] MEDS ORDERED: DIPHENOX-ATROP 2.5-0.025 MG 1 EACH TAB PO PRN (12:33)
[2021-08-31] MEDS ORDERED: ZOLPIDEM 5 MG TAB PO PRN (12:34)
[2021-08-31] MEDS ORDERED: MAG HYDROX/AL HYDROX/SIMETH 30 ML CUP PO PRN (12:34)
[2021-08-31] MEDS ORDERED: ATROPINE SULFATE 0.1 MG/ML 10ML SYRINGE IV PRN (12:34)
[2021-08-31] MEDS ORDERED: NITROGLYCERIN SL TABS 0.4 MG TAB SUBLINGUAL PRN (12:34)
[2021-08-31] MEDS ORDERED: RX INFO: IV CONTRAST WAS GIVEN 1 EACH MISC MISCELLANE PRN (12:34)
--- NOTE | 2021-08-31 12:44 | P.PCN ---
Date of Procedure: 08/31/21 Operative Findings: CARDIAC CATHETERIZATION AND PERCUTANEOUS CORONARY INTERVENTION PERFORMING PHYSICIAN: Kevin Cancino MD, [facility] PROCEDURE PERFORMED: 1. Selective right and left coronary angiogram 2. ALDRIDGE to LAD angiogram 3. SVG to ramus intermedius angiogram 4. Left heart catheterization 5. Successful stenting of ramus intermedius using 2.5 x 33 mm Xience SHANE which with an excellent angiographic results 6. Ultrasound-guided access of the right common femoral artery INDICATION: This is a 71-year-old gentleman with coronary artery disease and status post coronary artery bypass grafting with ALDRIDGE to LAD as well as SVG to ramus intermedius as well as lower extremities peripheral arterial disease and also diabetes and hypertension and dyslipidemia who was seen in the office recently for a follow-up on myocardial perfusion imaging stress test which came in to be significantly abnormal showing large area of reversibility involving the anterolateral segment of the left ventricle. Because of his symptoms of shortness of breath he has not been very functional lately. In the light of the results of the stress test in the symptoms I decided to pursue with a heart catheterization. COMPLICATION: None APPROACH: Right common femoral artery LEVEL OF SEDATION: Moderate with the sedation time off 40 minutes PROCEDURE DESCRIPTION: After obtaining an informed consent the patient was brought to the cardiac collaborating supervising physician. The right femoral artery was cannulated using micropuncture technique, the micropuncture wire passed easily then I placed a 6-[place] sheath. I did selective left and right coronary angiogram using JL4 and JR4 catheters. I did ALDRIDGE to LAD angiogram using the JR4 catheter. SVG to left circumflex angiogram was performed using LCB catheter. Left heart catheterization was performed using the JR4 catheter which cross the aortic valve then I did pulled back across the valve. SELECTIVE CORONARY ANGIOGRAM: The right coronary artery: Is a large caliber vessel. Its a dominant vessel. The RCA is diffusely diseased up to about 90-95% in the mid and distal portion. The RCA gives PLV branch. Left main: Calcified was mild disease. Bifurcates into an LCx in the ramus intermedius and left anterior descending artery The left circumflex: Is a large caliber vessel. Its and on dominant vessel. The ostial left circumflex has a 50% lesion. Proximally gives rises into an OM branch which appeared to be a small to medium caliber vessel was mild disease only in the left circumflex distally is occluded. The ramus intermedius: As a long tubular lesion appears to be in the range of 80%. The graft to the ramus intermedius is occluded. The left anterior descending artery: Is a large caliber vessel. The proximal LAD has [id number] disease. The LAD distally has competitive flow from the ALDRIDGE. The ALDRIDGE to LAD is patent The SVG to ramus is occluded HEMODYNAMICS: The LVEDP was 20 mmHg was mild gradient across aortic PCI OF THE ramus intermedius: Anticoagulation was initiated using heparin with continuous monitoring throughout the case. Subsequently I did engage the left main an EBU 3.5 guiding catheter. Subsequently I wire the ramus intermedius using a whisper wire. After that I did balloon angioplasty initially using 2.0 x 12 mm balloon and subsequently 2.5 x 12 mm balloon. After that I deployed a 2.5 x 33 mm stent where the stent was positioned under fluoroscopy guidance and deployed under its nominal pressure. The final angiogram showed good angiographic results. I had to use guide liner as an adjunctive into the guide to get the stent delivered. CONCLUSION: #1 mild disease involving the left main #2 severe disease involving the LAD. The ALDRIDGE to LAD is patent #3 severe disease involving the ramus intermedius. The SVG to ramus is occluded. I performed successful stenting of the ramus intermedius #4 occluded LCx in the distal portion #5 severe disease involving the right coronary artery #6 mildly elevated left-sided filling pressure POSTPROCEDURE MANAGEMENT: #1 dual antiplatelet therapy using aspirin and Plavix for at least 6 months #2 aggressive cholesterol control #3 follow-up with the patient #4 consider PCI of the RCA the patient remains symptomatic
[2021-08-31] MEDS ORDERED: SODIUM CHLORIDE 0.9% 1,000 ML in EMPTY BAG 1 BAG IV SCH (12:45)
--- NOTE | 2021-08-31 12:48 | P.PCN ---
Date of Procedure: 08/31/21 Operative Findings: AN ABDOMINAL AORTOGRAM AND BILATERAL LOWER EXTREMITIES RUNOFF PERFORMING PHYSICIAN: Kevin Cancino MD PROCEDURE PERFORMED: 1. An abdominal aortogram 2. Bilateral lower extremities runoff INDICATION: This is a 71-year-old gentleman with severe lower extremities peripheral arterial disease and prior angioplasty of the right iliac and left SFA was seen in the office recently with eye lateral lower extremities discomfort concerning for intermittent claudication. COMPLICATION: None LEVEL OF SEDATION: Moderate was sedation length of 12 minutes APPROACH: Right common femoral artery PROCEDURE DESCRIPTION: After obtaining informed consent and explaining the procedure benefits, risks, and complications, the patient was brought to the cardiac woods laborer. The right groin was prepped and draped in sterile fashion. The right common femoral artery was cannulated using micropuncture technique, under ultrasound guidance. A micropuncture wire was advanced, and the micropuncture sheath was advanced over the wire, then the micropuncture sheath was exchanged over an 0.35 wire into a 5-Swiss sheath dilator assembly then the wire and dilator were removed and sheath was flushed. We did an abdominal aortogram and bilateral lower extremities runoff using 5- Swiss pigtail catheter using a power injection. The catheter was initially placed at the level of the renal arteries, and it was pulled into above the bifurcation of the aorta into right and left common iliac arteries. The procedure was completed and there was no complications. SELECTIVE PERIPHERAL ANGIOGRAM: The abdominal aorta: Aorta is calcified was mild disease only. The common iliac arteries: The right common iliac artery appeared to be stented was intermediate in-stent restenosis. The gradient was measured and came in to be a 30 mmHg The left common iliac artery appeared to have mild disease only. The external iliac arteries: The right external iliac artery appeared to have mild disease only as well as the left external iliac artery The internal iliac arteries: The right and left internal iliac arteries are patent The common femoral arteries: The right common and left common femoral arteries appeared to have mild disease only. Superficial femoral arteries: The right SFA is calcified was mild to moderate diffuse disease. The left SFA is also calcified was patent stent in the midportion and mild to moderate diffuse disease as well. Popliteal arteries: The right popliteal appeared to have an intermediate to severe disease. The left popliteal appeared to have severe disease Below the knees: In the arteries below the knee were not well-opacified. CONCLUSION: Severe disease involving the right common iliac artery. Severe in-stent restenosis. Confirmed by gradient measurement which came in to be a 30 mmHg Intermediate disease involving the right popliteal and severe disease involving the left popliteal POSTPROCEDURE MANAGEMENT: Consider RECEIVABLE MANAGER of the right iliac and left popliteal if the patient remains symptomatic Medical treatment and follow-up with the patient.
--- NOTE | 2021-08-31 13:03 | IR ---
EXAMINATION TYPE: IR angio abdominal w runoff DATE OF EXAM: 08/31/2021 COMPARISON: NONE HISTORY: Fluoroscopy time. Fluoroscopy was provided to the referring clinician.
[2021-08-31] MEDS: hydrALAZINE HCL 20 MG/ML 1 ML VIAL IVP PRN ×2 (15:30→19:56)
[2021-08-31] MEDS: GABAPENTIN 400 MG CAP PO SCH (15:30)
[2021-08-31] MEDS: METOPROLOL TARTRATE 50 MG TAB PO SCH (15:30)
[2021-08-31 16:53] LABS: Glucose,Whole Blood 115 mg/dL (70-110)
[2021-08-31] MEDS: glipiZIDE 10 MG TAB PO SCH (17:19)
[2021-08-31] MEDS: INSULIN ASPART (NovoLOG) 100 UNIT/ML VIAL SQ SCH (17:28)
[2021-08-31] MEDS ORDERED: ACETAMINOPHEN TAB 325 MG TAB PO PRN (19:31)
[2021-08-31] MEDS: ASCORBIC ACID 500 MG TAB PO SCH (19:49)
[2021-08-31] MEDS ORDERED: LORATADINE 10 MG TAB PO SCH (21:00)
[2021-08-31] MEDS ORDERED: GABAPENTIN 400 MG CAP PO SCH (21:00)
[2021-08-31] MEDS ORDERED: FLUTICASONE 50MCG/SPRAY NASAL 16GM EA NOSTRIL SCH (21:00)
[2021-08-31] MEDS ORDERED: ATORVASTATIN 40 MG TAB PO SCH (21:00)
[2021-09-01 01:12] VITALS: RESP 18
[2021-09-01] MEDS: METOPROLOL TARTRATE 50 MG TAB PO SCH (06:11)
[2021-09-01] MEDS: GABAPENTIN 400 MG CAP PO SCH (06:11)
[2021-09-01] MEDS ORDERED: ASPIRIN 81 MG PO SCH (07:00)
[2021-09-01] MEDS ORDERED: LEVOTHYROXINE 75 MCG TAB PO SCH (07:00)
[2021-09-01] MEDS ORDERED: CLOPIDOGREL 75 MG TAB PO SCH (07:00)
[2021-09-01] MEDS ORDERED: PANTOPRAZOLE 40 MG TABLET PO SCH (07:00)
[2021-09-01] MEDS ORDERED: lisinopriL 5 MG TAB PO SCH (07:00)
[2021-09-01 07:28] LABS: Glucose,Whole Blood 198 mg/dL (70-110)
[2021-09-01] MEDS: glipiZIDE 10 MG TAB PO SCH (07:35)
[2021-09-01] MEDS: INSULIN ASPART (NovoLOG) 100 UNIT/ML VIAL SQ SCH (07:36)
[2021-09-01] MEDS: ASCORBIC ACID 500 MG TAB PO SCH (09:22)
[2021-09-01 09:59] LABS: African American GFR (CKD) >90 (>60 ml/min/1.73 sqM); Non-African American GFR(CKD) 87 (>60 ml/min/1.73 sqM)
[2021-09-01 10:11] VITALS: BP 116/72; PULSE 61; TEMP 97.5
--- NOTE | 2021-09-01 13:43 | P.DS ---
Providers Attending physician: Kevin Cancino Consults: 08/31/21 12:34 Consult Physician Routine Consulting Provider: [facility] Reason/Comments: Post Interventional patient Do you want consulting provider notified?: Already Contacted Primary care physician: Malvin Kee [facility] Course: This is a 71-year-old male who underwent cardiac catheterization yesterday with Dr. Mcguire with stenting of the ramus intermedius. The patient also underwent abdominal aortogram and bilateral lower extremity runoff revealing severe disease involving the right common iliac artery. Severe in-stent restenosis. Intermediate disease involving the right popliteal and severe disease involving the left popliteal. Patient examined this morning at the bedside with Dr. Mcguier. The patient denies chest pain or pressure. He denies shortness of breath. Patient's vital signs are stable. He was deemed stable for discharge home today per Dr. Mcguire. The patient is to follow up on an outpatient basis. Discharge diagnosis Coronary artery disease, status post stenting of ramus intermedius Peripheral vascular disease Nurse practitioner note has been reviewed by physician. Signing provider agrees with the documented findings, assessment, and plan of care. Plan - Discharge Summary Discharge Rx Participant: No New Discharge Prescriptions: Continue Clopidogrel Bisulfate [Plavix] 75 mg PO DAILY@0700 Aspirin [Adult Low Dose Aspirin EC] 81 mg PO DAILY@0700 Metoprolol Tartrate [Lopressor] 50 mg PO BID@0700,1600 Fexofenadine HCl 180 mg PO HS Atorvastatin Calcium [Lipitor] 40 mg PO HS@2100 lisinopriL [Zestril] 5 mg PO DAILY@0700 No Action Esomeprazole Magnesium [NexIUM] 40 mg PO DAILY@0700 glyBURIDE/METFORMIN HCL [Glucovance 5-500 mg] 2 tab PO AC-BID@0700,1600 Levothyroxine Sodium 150 mcg PO DAILY@0700 Ascorbic Acid [Vitamin C] 250 mg PO BID Gabapentin [Neurontin] 800 mg PO BID@0700,1600 Insulin Aspart [NovoLOG Flexpen] 15 units SQ AC-TID Fluticasone Nasal [place] [Flonase Nasal [place]] 1 spray EA NOSTRIL HS Gabapentin [Neurontin] 2,400 mg PO HS@2100 Diphenoxylate HCl/Atropine [Lomotil 2.5-0.025 mg Tablet] 3 each PO DAILY PRN PRN Reason: LOOSE STOOL Insulin Detemir [Levemir Flextouch Pen] 15 - 20 units SQ HS Discharge Medication List Clopidogrel Bisulfate [Plavix] 75 mg PO DAILY@0700 01/14/17 [History] Esomeprazole Magnesium [NexIUM] 40 mg PO DAILY@0700 01/14/17 [History] glyBURIDE/METFORMIN HCL [Glucovance 5-500 mg] 2 tab PO AC-BID@0700,1600 01/14/17 [History] Aspirin [Adult Low Dose Aspirin EC] 81 mg PO DAILY@0700 09/15/18 [History] Ascorbic Acid [Vitamin C] 250 mg PO BID 06/08/21 [History] Atorvastatin Calcium [Lipitor] 40 mg PO HS@209906/08/21 [History] Fluticasone Nasal [place] [Flonase Nasal [place]] 1 spray EA NOSTRIL HS 06/08/21 [History] Gabapentin [Neurontin] 2,400 mg PO HS@209906/08/21 [History] Gabapentin [Neurontin] 800 mg PO BID@0700,1600 06/08/21 [History] Levothyroxine Sodium 150 mcg PO DAILY@0706/08/21 [History] Metoprolol Tartrate [Lopressor] 50 mg PO BID@0700,1600 06/08/21 [History] lisinopriL [Zestril] 5 mg PO DAILY@69906/08/21 [History] Diphenoxylate HCl/Atropine [Lomotil 2.5-0.025 mg Tablet] 3 each PO DAILY PRN 08/30/21 [History] Fexofenadine HCl 180 mg PO HS 08/30/21 [History] Insulin Aspart [NovoLOG Flexpen] 15 units SQ AC-TID 08/30/21 [History] Insulin Detemir [Levemir Flextouch Pen] 15 - 20 units SQ HS 08/30/21 [History] Follow up Appointment(s)/Referral(s): Kevin Cancino MD [STAFF PHYSICIAN] - 1 Week (APPOINTMENT MADE ON September @ 1:30PM ) Patient Instructions/Handouts: *Surgery [facility] - After Heart Catheterization - Piano Professor Instructions, Peripheral Artery Disease (ED), Moderate Sedation (DC) Activity/Diet/Wound Care/Special Instructions: *NO LIFTING, PUSHING, OR PULLING ANYTHING OVER 5 POUNDS FOR 5 DAYS *NO DRIVING FOR 3 DAYS * YOU CAN SHOWER TOMORROW BUT DO NOT SUBMERSE YOUR PUNCTURE SITE IN WATER FOR A FEW DAYS TO PREVENT INFECTION - SO NO TUB BATHS, POOLS, HOT TUBS, DISHES...ETC *ANY SIGNS OF BLEEDING (HARDNESS, SWELLING, OR EXCESSIVE BRUISING) HOLD DIRECT PRESSURE ON YOUR PUNCTURE SITE AND COME TO THE NEAREST EMERGENCY ROOM TO GET YOUR PUNCTURE SITE LOOKED AT - DO NOT DRIVE YOURSELF! EITHER CALL EMS OR HAVE SOMEONE DRIVE YOU!
[2021-09-02] MEDS ORDERED: metFORMIN 500 MG TAB PO SCH (16:00)
== END 2021-09-01 12:13 ==
LOC: CATHCVL 06:51 → 3SCARD 14:18 → CATHCVL 09-01 12:13
PROVIDERS: ATTEND Internal Medicine Interventional Cardiology
DX: I70.213 Atherosclerosis of native arteries of extremities with intermittent claudication, bilateral legs (principal); I25.10 Atherosclerotic heart disease of native coronary artery without angina pectoris; Z20.822 Contact with and (suspected) exposure to COVID-19
CPT/HCPCS: 93459; 75625; 75716; 80048; 82565; 85025; 87635; C1769 ×5; C9600; C1887 ×4; C1725 ×2; C1894; C1874; J2250; J0360; J2001; J1644; Q9966; Q9967; 36200

== ENCOUNTER 2021-09-22 07:41 | Day surgery (SDC) | payer MEDICARE ==
[2021-09-20 12:10] VITALS: BMI 39.1
[2021-09-22 08:00] VITALS: TEMP 96.7
[2021-09-22] MEDS: LACTATED RINGERS 1,000 ML IV SCH ×2 (08:11→08:59)
[2021-09-22 08:22] LABS: Glucose,Whole Blood 177 mg/dL (70-110)
[2021-09-22] MEDS ORDERED: PROPOFOL 10 MG/ML 20 ML VIAL IV ONE (09:04)
--- NOTE | 2021-09-22 09:28 | P.PCN ---
Date of Procedure: 09/22/21 Procedure(s) Performed: BRIEF HISTORY: Patient is a 71-year-old pleasant white male scheduled for an elective colonoscopy as a part of evaluation of prior history of colon polyps. Last colonoscopy was 3 years ago. PROCEDURE PERFORMED: Colonoscopy with snare polypectomy. PREOPERATIVE DIAGNOSIS: History of colon Polyps. IV sedation per Anesthesia. PROCEDURE: After informed consent was obtained, the patient, was brought into the endoscopy unit. IV sedation was administered by Anesthesia under continuous monitoring. Digital rectal examination was normal. Initially the Olympus CF-160 flexible video colonoscope was then inserted in the rectum, gradually advanced into the cecum without any difficulty. Careful examination was performed as the scope was gradually being withdrawn. Ileocecal valve and the appendiceal orifice were visualized and appeared normal. Prep was excellent. Mucosa of the cecum, ascending colon, normal. In the transverse colon there was a 5 mm, 7 mm and 1 cm polyp removed by snare polypectomy. Rest of the transverse colon, appeared normal. The previously noted polyp in the descending colon appears to have completely removed. No residual polyp identified at the site. Rest of the descending colon, sigmoid colon, and rectum appeared normal. Retroflexion was performed in the rectum and no lesions were seen. The patient tolerated the procedure well. IMPRESSION: 1 cm, 7 mm and 5 mm transverse colon polyp status post snare polypectomy No residual polyp noted in the descending colon RECOMMENDATIONS: Findings of this examination were discussed with the patient and family. He was advised to follow with the biopsy results. If the biopsy reveals adenoma he can have a repeat colonoscopy in 3 years..
[2021-09-22 09:46] VITALS: BP 130/68; PULSE 56; RESP 16
== END 2021-09-22 10:06 | disposition home or self-care (01) ==
LOC: ORWHC2ENDO 07:41
PROVIDERS: ATTEND Internal Medicine Gastroenterology
DX: Z12.11 Encounter for screening for malignant neoplasm of colon (principal); D12.3 Benign neoplasm of transverse colon; Z86.010 Personal history of colon polyps; I25.10 Atherosclerotic heart disease of native coronary artery without angina pectoris; I10 Essential (primary) hypertension; E11.69 Type 2 diabetes mellitus with other specified complication; E78.5 Hyperlipidemia, unspecified; E11.51 Type 2 diabetes mellitus with diabetic peripheral angiopathy without gangrene; K21.9 Gastro-esophageal reflux disease without esophagitis; E03.9 Hypothyroidism, unspecified; Z95.5 Presence of coronary angioplasty implant and graft; Z79.4 Long term (current) use of insulin; Z79.899 Other long term (current) drug therapy; Z79.890 Hormone replacement therapy; Z79.01 Long term (current) use of anticoagulants; Z79.82 Long term (current) use of aspirin; Z79.51 Long term (current) use of inhaled steroids; Z87.891 Personal history of nicotine dependence
CPT/HCPCS: 88305; 45385; J2704

== ENCOUNTER 2022-08-09 10:08 | Emergency (ER) | payer MEDICARE ==
[2022-08-09] MEDS ORDERED: SODIUM CHLORIDE 0.9% 1,000 ML IV ONE (10:52)
--- NOTE | 2022-08-09 10:55 | ED ---
General Adult HPI - General Chief complaint: Skin/Abscess/Foreign Body Stated complaint: groin wound Time Seen by Provider: 08/09/22 10:30 Source: patient, RN notes reviewed Mode of arrival: ambulatory Limitations: no limitations - History of Present Illness Initial comments: 72-year-old male with medical history significant for cardiac cathet erization 3 months ago presents to the emergency department with a chief complaint of right groin abscess. Patient reports that he has had the abscess x 4days. He reports he was at his PCPs office yesterday who lanced the abscess and got minimal output. Patient reports increased redness, swelling and tenderness to the area. He was started on Bactrim yesterday. Denies any abnormal discharge with fevers. Denies cough, chest pain, shortness breath, nausea, vomiting, diarrhea, dysuria, testicular pain - Related Data Home Medications Medication Instructions Recorded Confirmed Clopidogrel Bisulfate [Plavix] 75 mg PO DAILY@0700 01/14/17 05/03/22 Esomeprazole Magnesium [NexIUM] 40 mg PO DAILY@0700 01/14/17 05/03/22 glyBURIDE/METFORMIN HCL 2 tab PO AC-BID@0700,1600 01/14/17 05/03/22 [Glucovance 5-500 mg] Aspirin [Adult Low Dose Aspirin EC] 81 mg PO DAILY@0700 09/15/18 05/03/22 Ascorbic Acid [Vitamin C] 250 mg PO BID 06/08/21 05/03/22 Atorvastatin Calcium [Lipitor] 40 mg PO HS@2100 06/08/21 05/03/22 Fluticasone Nasal [place] [Flonase 1 spray EA NOSTRIL 06/08/21 05/03/22 Nasal [place]] Gabapentin [Neurontin] 2,400 mg PO HS@2100 06/08/21 05/03/22 Gabapentin [Neurontin] 800 mg PO BID@0700,1600 06/08/21 05/03/22 Levothyroxine Sodium 150 mcg PO DAILY@0700 06/08/21 05/03/22 Metoprolol Tartrate [Lopressor] 50 mg PO BID@0700,1600 06/08/21 05/03/22 lisinopriL [Zestril] 5 mg PO DAILY@0700 06/08/21 05/03/22 Fexofenadine HCl 180 mg PO HS 08/30/21 05/03/22 Insulin Aspart [NovoLOG Flexpen] 15 units SQ AC-TID 08/30/21 05/03/22 Insulin Detemir [Levemir Flextouch 15 - 20 units SQ HS 08/30/21 05/03/22 Pen] Allergies Allergy/AdvReac Type Severity Reaction Status Date / Time No Known Allergies Allergy Verified 08/09/22 10:27 Review of Systems ROS Statement: Those systems with pertinent positive or pertinent negative responses have been documented in the HPI. ROS Other: All systems not noted in ROS Statement are negative. 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 Seasonal allergies. 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 SEE DR NOEL'S HISTORY AND PHYSICAL FOR CARDIAC HISTORY, STROKE RIGHT EYE , History of Any Multi-Drug Resistant Organisms: None Reported Past Surgical History: Coronary Bypass/CABG Additional Past Surgical History / Comment(s): 2 stents carotid artery, "catheterization bilateral legs", bilateral cataracts with lens implants, CABG about 5 years ago, COLONOSCOPY Past Anesthesia/Blood Transfusion Reactions: No Reported Reaction Past Psychological History: PTSD Smoking Status: Former smoker Past Alcohol Use History: None Reported Past Drug Use History: None Reported - Past Family History Mother Family Medical History: No Reported History General Exam Limitations: no limitations Course Vital Signs 08/09/22 08/09/22 10:23 12:27 Temperature 97.5 F L 97.7 F Pulse Rate 58 L 62 Respiratory 18 16 Rate Blood Pressure 120/67 124/76 O2 Sat by Pulse 98 98 Oximetry Medical Decision Making - Medical Decision Making Was pt. sent in by a medical professional or institution (, PA, WRONG ADDRESS CLERK, urgent care, hospital, or shelter...) When possible be specific @ -[No] Did you speak to anyone other than the patient for history (EMS, parent, family, police, friend...)? What history was obtained from this source @ -[No] Did you review nursing and triage notes (agree or disagree)? Why? @ -[I reviewed and agree with nursing and triage notes] Were old charts reviewed (outside hosp., previous admission, EMS record, old EKG, old radiological studies, urgent care reports/EKG's, shelter records)? Report findings @ -[No old charts were reviewed] Differential Diagnosis (chest pain, altered mental status, abdominal pain women, abdominal pain men, vaginal bleeding, weakness, fever, dyspnea, syncope, headache, dizziness, GI bleed, back pain, seizure, CVA, palpatations, mental health, musculoskeletal)? @ -[not applicable] EKG interpreted by me (3pts min.). @ -[As above] X-rays interpreted by me (1pt min.). @ -[None done] CT interpreted by me (1pt min.). @ -[None done] U/S interpreted by me (1pt. min.). @ -[None done] What testing was considered but not performed or refused? (CT, X-rays, U/S, labs)? Why? @ -[None] What meds were considered but not given or refused? Why? @ -[None] Did you discuss the management of the patient with other professionals (professionals i.e. , PA, WRONG ADDRESS CLERK, lab, RT, psych nurse, social work program coordinator, family court counsellor, teacher, cash management officer, child support case officer)? Give summary @ -[No] Was smoking cessation discussed for >3mins.? @ -[No] Was critical care preformed (if so, how long)? @ -[No] Were there social determinants of health that impacted care today? How? (Homelessness, low income, unemployed, alcoholism, drug addiction, transportation, low edu. Level, literacy, decrease access to med. care, halfway, rehab)? @ -[No] Was there de-escalation of care discussed even if they declined (Discuss DNR or withdrawal of care, Hospice)? DNR status @ -[No] What co-morbidities impacted this encounter? (DM, HTN, Smoking, COPD, CAD, Cancer, CVA, ARF, Chemo, Hep., AIDS, mental health diagnosis, sleep apnea, morbid obesity)? @ -[None] Was patient admitted / discharged? Hospital course, mention meds given and route, prescriptions, significant lab abnormalities, going to OR and other pertinent info. @Discharge. This is a 72-year-old male who presents to the emergency department with a chief complaint of groin abscess. Patient had a thorough history and physical exam performed on the ED. There is a 3.5 cm x 1.5 cm lesion to the right groin. It is not fluctuant. There is no active drainage or bleeding at the site. There is no stranding erythema or edema. Patient had lab work and imaging which revealed: Ultrasound of the groin shows no abscess with more focal area of suspected edema that could represent sequela of attempted drainage there is subcutaneous edema to the area Were unremarkable. I discussed the results in detail with the patient who verbalized understanding. All questions were addressed. Return precautions were discussed at length. Patient was instructed to keep taking his Bactrim as prescribed. With recommended close follow-up with his PCP in 1-2 days. Patient discharged in stable condition. Case discussed with Dr. Sims Deepak who agrees with plan of care. Undiagnosed new problem with uncertain prognosis? @ -[No] Drug Therapy requiring intensive monitoring for toxicity (Heparin, Nitro, Insulin, Cardizem)? @ -[No] Were any procedures done? @ -[No] Diagnosis/symptom? @ -R Groin Abcess - Hx of Cardiac Catheterization Acute, or Chronic, or Acute on Chronic? @ -Acute Uncomplicated (without systemic symptoms) or Complicated (systemic symptoms)? @ -Uncomplicated Side effects of treatment? @ -[No] Exacerbation, Progression, or Severe Exacerbation? @ -[No] Poses a threat to life or bodily function? How? (Chest pain, [place], NH, pneumonia, PE, COPD, DKA, ARF, appy, cholecystitis, CVA, Diverticulitis, Homicidal, Suicidal, threat to staff... and all critical care pts) @ -Low likelihood - Lab Data Result diagrams: 08/09/22 11:06 08/09/22 11:06 Lab Results 08/09/22 08/09/22 Range/Units 11:06 11:06 WBC 11.2 H (3.8-10.6) k/uL RBC 4.56 (4.30-5.90) m/uL Hgb 11.9 L (13.0-17.5) gm/dL Hct 35.5 L (39.0-53.0) % MCV 77.8 L (80.0-100.0) fL MCH 26.1 (25.0-35.0) pg MCHC 33.5 (31.0-37.0) g/dL RDW 14.2 (11.5-15.5) % Plt Count 247 (150-450) k/uL MPV 8.5 Neutrophils % 75 % Lymphocytes % 11 % Monocytes % 9 % Eosinophils % 3 % Basophils % 1 % Neutrophils # 8.4 H (1.3-7.7) k/uL Lymphocytes # 1.3 (1.0-4.8) k/uL Monocytes # 1.0 (0-1.0) k/uL Eosinophils # 0.3 (0-0.7) k/uL Basophils # 0.1 (0-0.2) k/uL Sodium 130 L (137-145) mmol/L Potassium 4.3 (3.5-5.1) mmol/L Chloride 94 L (98-107) mmol/L Carbon Dioxide 26 (22-30) mmol/L Anion Gap 10 mmol/L BUN 13 (9-20) mg/dL Creatinine 0.78 (0.66-1.25) mg/dL Est GFR (CKD-EPI)AfAm >90 (>60 ml/min/1.73 sqM) Est GFR (CKD-EPI)NonAf 89 (>60 ml/min/1.73 sqM) Glucose 131 H (74-99) mg/dL Calcium 8.5 (8.4-10.2) mg/dL Total Bilirubin 0.5 (0.2-1.3) mg/dL AST 19 (17-59) U/L ALT 19 (4-49) U/L Alkaline Phosphatase 65 (38-126) U/L Total Protein 5.9 L (6.3-8.2) g/dL Albumin 3.7 (3.5-5.0) g/dL Disposition Clinical Impression: Groin abscess Disposition: HOME SELF-CARE Condition: Stable Instructions (If sedation given, give patient instructions): Abscess (ED) Additional Instructions: Please return to the ER fever, worsening redness, worsening swelling develop Please take Bactrim as prescribed Please return to the nearest emergency department symptoms worsen or persist Is patient prescribed a controlled substance at d/c from ED?: No Referrals: Malvin Kee MD [Primary Care Provider] - 1-2 days Time of Disposition: 12:15
[2022-08-09 11:29] LABS: Basophils # (A) 0.1 k/uL (0-0.2); Basophils % (A) 1 %; Eosinophils # (A) 0.3 k/uL (0-0.7); Eosinophils % (A) 3 %; HCT 35.5 % (39.0-53.0); HGB 11.9 gm/dL (13.0-17.5); Lymphocytes # (A) 1.3 k/uL (1.0-4.8); Lymphocytes % (A) 11 %; MCH 26.1 pg (25.0-35.0); MCHC 33.5 g/dL (31.0-37.0); MCV 77.8 fL (80.0-100.0); Mean Platelet Volume 8.5; Monocytes % (A) 9 %; Neutrophils # (A) 8.4 k/uL (1.3-7.7); Neutrophils % (A) 75 %; Platelet Count 247 k/uL (150-450); RBC 4.56 m/uL (4.30-5.90); RDW 14.2 % (11.5-15.5); WBC 11.2 k/uL (3.8-10.6)
[2022-08-09 11:40] LABS: ALT 19 U/L (4-49); AST 19 U/L (17-59); African American GFR (CKD) >90 (>60 ml/min/1.73 sqM); Albumin 3.7 g/dL (3.5-5.0); Alkaline Phosphatase 65 U/L (38-126); Anion Gap 10 mmol/L; Blood Urea Nitrogen 13 mg/dL (9-20); Calcium 8.5 mg/dL (8.4-10.2); Carbon Dioxide 26 mmol/L (22-30); Chloride 94 mmol/L (98-107); Glucose 131 mg/dL (74-99); Non-African American GFR(CKD) 89 (>60 ml/min/1.73 sqM); Potassium 4.3 mmol/L (3.5-5.1); Sodium 130 mmol/L (137-145); Total Bilirubin 0.5 mg/dL (0.2-1.3); Total Protein 5.9 g/dL (6.3-8.2)
--- NOTE | 2022-08-09 11:41 | US ---
EXAMINATION TYPE: US groin RT DATE OF EXAM: 08/09/2022 COMPARISON: NONE CLINICAL INDICATION: Male, 72 years old with history of r groin abscess; Redness, pain, and lump to r ight groin. Pt states he went to PCP yesterday and they tried draining the area without success Technique: Grayscale imaging of the area of palpable abnormality in the right groin. FINDINGS: Streaky subcutaneous edema within the area of palpable abnormality. A more focal collection of sus[place] brianna edema is present versus post prior drainage attempted changes. No definitive abscess visualized. No suspicious mass. IMPRESSION: 1. No abscess visualized at this time a more focal area of suspected edema is present could represen t sequela of attempted drainage. Short-term follow-up recommended after clinical management. 2. Subcutaneous edema throughout the area of palpable abnormality.
[2022-08-09 12:29] VITALS: BP 124/76; PULSE 62; RESP 16; TEMP 97.7
== END 2022-08-09 12:29 | disposition home or self-care (01) ==
LOC: EC 10:08
DX: L02.214 Cutaneous abscess of groin (principal); I10 Essential (primary) hypertension; E11.9 Type 2 diabetes mellitus without complications; K21.9 Gastro-esophageal reflux disease without esophagitis; E78.5 Hyperlipidemia, unspecified; E07.9 Disorder of thyroid, unspecified; M19.90 Unspecified osteoarthritis, unspecified site; Z79.4 Long term (current) use of insulin; Z79.84 Long term (current) use of oral hypoglycemic drugs; Z79.82 Long term (current) use of aspirin; Z79.890 Hormone replacement therapy; Z79.02 Long term (current) use of antithrombotics/antiplatelets; Z79.899 Other long term (current) drug therapy; Z95.1 Presence of aortocoronary bypass graft; Z87.891 Personal history of nicotine dependence; Z86.73 Personal history of transient ischemic attack (TIA), and cerebral infarction without residual deficits
CPT/HCPCS: 36415; 80053; 85025; 87040; 87070; 87077; 87186; 87205; 96360; 99284

== ENCOUNTER 2023-04-11 16:53 | Inpatient (IN) | payer MEDICARE ==
[2023-04-11 17:32] LABS: Basophils % (A) 1 %; Eosinophils % (A) 0 %; HCT 35.7 % (39.0-53.0); HGB 12.2 gm/dL (13.0-17.5); Lymphocytes # (A) 0.5 k/uL (1.0-4.8); Lymphocytes % (A) 8 %; MCH 27.2 pg (25.0-35.0); MCV 79.8 fL (80.0-100.0); Mean Platelet Volume 8.7; Monocytes # (A) 0.6 k/uL (0-1.0); Monocytes % (A) 8 %; Neutrophils # (A) 5.5 k/uL (1.3-7.7); Neutrophils % (A) 82 %; Platelet Count 135 k/uL (150-450); RBC 4.47 m/uL (4.30-5.90); RDW 15.3 % (11.5-15.5); WBC 6.8 k/uL (3.8-10.6)
[2023-04-11 17:35] LABS: Appearance,Urine Clear (Clear); Bacteria,Urine Rare /hpf; Bilirubin,Urine Negative (Negative); Blood,Urine Trace (Negative); Color,Urine Light Yellow; Glucose,Urine (UA) 1+ (Negative); Hyaline Casts,Urine 1 /lpf (0-2); Ketones,Urine Negative (Negative); Leukocyte Esterase,Urine Negative (Negative); Mucus,Urine Rare /hpf; Nitrite,Urine Negative (Negative); PH, Urine 5.5 (5.0-8.0); Protein,Urine 2+ (Negative); RBC,Urine 1 /hpf (0-5); Specific Gravity,Urine 1.021 (1.001-1.035); Urobilinogen,Urine <2.0 mg/dL (<2.0); WBC,Urine 2 /hpf (0-5)
--- NOTE | 2023-04-11 17:35 | XR ---
EXAMINATION TYPE: XR chest 2V DATE OF EXAM: 04/11/2023 5:30 PM CLINICAL INDICATION:Male, 73 years old with history of Fever; [facility] COMPARISON: Chest radiographs from 06/08/2021 TECHNIQUE: XR chest 2V Frontal and lateral views of the chest. FINDINGS: Lungs/Pleura: There is no evidence of pleural effusion, focal consolidation, or pneumothorax. Pulmonary vascularity: Unremarkable. Heart/mediastinum: Cardiomediastinal silhouette is unremarkable. Musculoskeletal: No acute osseous pathology. Midline sternotomy wires are noted. Other findings: None IMPRESSION: No acute cardiopulmonary disease/process.
[2023-04-11 17:45] LABS: ALT 30 U/L (4-49); AST 34 U/L (17-59); African American GFR (CKD) >90 (>60 ml/min/1.73 sqM); Albumin 4.1 g/dL (3.5-5.0); Alkaline Phosphatase 72 U/L (38-126); Anion Gap 11 mmol/L; Blood Urea Nitrogen 13 mg/dL (9-20); Calcium 8.5 mg/dL (8.4-10.2); Carbon Dioxide 21 mmol/L (22-30); Chloride 99 mmol/L (98-107); Glucose 166 mg/dL (74-99); Non-African American GFR(CKD) >90 (>60 ml/min/1.73 sqM); Potassium 4.3 mmol/L (3.5-5.1); Sodium 131 mmol/L (137-145); Total Bilirubin 0.5 mg/dL (0.2-1.3); Total Protein 6.3 g/dL (6.3-8.2)
[2023-04-11] MEDS: SODIUM CHLORIDE 0.9% 500 ML 500 ML IV SCH (17:49)
[2023-04-11] MEDS: ACETAMINOPHEN TAB 500 MG TAB PO STA (17:49)
[2023-04-11] MEDS: IBUPROFEN 600 MG TAB PO STA (17:49)
[2023-04-11 17:58] LABS: Partial Thromboplastin Time 24.4 sec (22.0-30.0)
--- NOTE | 2023-04-11 18:12 | ED ---
General Adult HPI - General Chief complaint: Fall Stated complaint: Fall, Alt Mental Time Seen by Provider: 04/11/23 16:55 Source: patient, EMS, RN notes reviewed, old records reviewed Mode of arrival: EMS Limitations: no limitations - History of Present Illness Initial comments: this is a 73-year-old male who presents to the emergency department from his home. Patient was found standing in the bathroom at the sink but a little confused and very weak states that the patient was making the claim that he had fallen but when she tried to get him over to the toilet he was so weak she had to help him quite a bit and he almost fell again. EMS states when they arrived his left side was weak and he had left-sided pronator drift. Patient also was confused for EMS. According to the the patient has been experiencing some dementia lately and he is currently being worked up for that. Currently patient remembers he was at home remembers that he is in the ER and that he fell. Patient denies any pain patient denies any complaints currently - Related Data Home Medications Medication Instructions Recorded Confirmed Clopidogrel Bisulfate [Plavix] 75 mg PO DAILY 01/14/17 04/11/23 Esomeprazole Magnesium [NexIUM] 40 mg PO DAILY 01/14/17 04/11/23 glyBURIDE/METFORMIN HCL 2 tab PO AC-BID 01/14/17 04/11/23 [Glucovance 5-500 mg] Aspirin [Adult Low Dose Aspirin EC] 81 mg PO DAILY 09/15/18 04/11/23 Ascorbic Acid [Vitamin C] 250 mg PO BID 06/08/21 04/11/23 Atorvastatin Calcium [Lipitor] 40 mg PO HS 06/08/21 04/11/23 Fluticasone Nasal [place] [Flonase 1 spray EA NOSTRIL BID 06/08/21 04/11/23 Nasal [place]] Gabapentin [Neurontin] 2,400 mg PO HS 06/08/21 04/11/23 Fexofenadine HCl 180 mg PO DAILY 08/30/21 04/11/23 Insulin Aspart [NovoLOG Flexpen] See Protocol SQ ACHS 08/30/21 04/11/23 Clobetasol Propionate [Temovate 1 applic TOPICAL BID 04/11/23 04/11/23 0.05% Oint] Gabapentin 800 mg PO BID@0700,1600 04/11/23 04/11/23 Levothyroxine Sodium [Synthroid] 125 mcg PO DAILY 04/11/23 04/11/23 Metoprolol Tartrate [Lopressor] 50 mg PO BID 04/11/23 04/11/23 Nitroglycerin Sl Tabs [Nitrostat] 0.4 mg SUBLINGUAL Q5M PRN 04/11/23 04/11/23 Allergies Allergy/AdvReac Type Severity Reaction Status Date / Time No Known Allergies Allergy Verified 08/09/22 10:27 Review of Systems ROS Statement: Those systems with pertinent positive or pertinent negative responses have been documented in the HPI. ROS Other: All systems not noted in ROS Statement are negative. 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 Seasonal allergies. 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 SEE DR NOEL'S HISTORY AND PHYSICAL FOR CARDIAC HISTORY, STROKE RIGHT EYE , History of Any Multi-Drug Resistant Organisms: MRSA Date of last positivie culture/infection: 08/09/22 MDRO Source:: Groin Past Surgical History: Coronary Bypass/CABG Additional Past Surgical History / Comment(s): 2 stents carotid artery, "catheterization bilateral legs", bilateral cataracts with lens implants, CABG about 5 years ago, COLONOSCOPY Past Anesthesia/Blood Transfusion Reactions: No Reported Reaction Past Psychological History: PTSD Smoking Status: Former smoker Past Alcohol Use History: None Reported Past Drug Use History: None Reported - Past Family History Mother Family Medical History: No Reported History General Exam - General Exam Comments Initial Comments: GENERAL: Patient is well-developed and well-nourished. Patient is nontoxic and well-hydrated and is in mild distress. ENT: Neck is soft and supple. No significant lymphadenopathy is noted. Oropharynx is clear. Moist mucous membranes. Neck has full range of motion without eliciting any pain. EYES: The sclera were anicteric and conjunctiva were pink and moist. Extraocular movements were intact and pupils were equal round and reactive to light. Eyelids were unremarkable. PULMONARY: Unlabored respirations. Good breath sounds bilaterally. No audible rales rhonchi or wheezing was noted. CARDIOVASCULAR: There is a regular rate and rhythm without any murmurs gallops or rubs. ABDOMEN: Soft and nontender with normal bowel sounds. SKIN: Skin is clear with no lesions or rashes and otherwise unremarkable. NEUROLOGIC: Patient is alert and oriented x3. Cranial nerves II through XII are grossly intact. Motor and sensory are also intact. Normal speech, volume and content. Symmetrical smile. Patient has no pronator drift. Patient's NIH is 0 MUSCULOSKELETAL: Normal extremities with adequate strength and full range of motion. LYMPHATICS: No significant lymphadenopathy is noted PSYCHIATRIC: Normal psychiatric evaluation. Limitations: no limitations Course Vital Signs 04/11/23 04/11/23 04/11/23 16:55 18:42 18:45 Temperature 101.7 F H 99 F Pulse Rate 80 73 Respiratory 18 18 Rate Blood Pressure 185/78 139/71 O2 Sat by Pulse 96 89 L 95 Oximetry 04/11/23 19:32 Temperature Pulse Rate 67 Respiratory 16 Rate Blood Pressure 106/68 O2 Sat by Pulse 96 Oximetry Medical Decision Making - Medical Decision Making EKG is interpreted by myself her EKG shows a sinus rhythm at 80 bpm [place] interval is 161 QRS 120 QT interval 357 QTc is 393. Patient's EKG shows no ST segment elevation or depression. Was pt. sent in by a medical professional or institution (, PA, SLAB MILLER OPERATOR, urgent care, hospital, or residential...) When possible be specific @ -No Did you speak to anyone other than the patient for history (EMS, parent, family, police, friend...)? What history was obtained from this source @ -No Did you review nursing and triage notes (agree or disagree)? Why? @ -I reviewed and agree with nursing and triage notes Were old charts reviewed (outside hosp., previous admission, EMS record, old EKG, old radiological studies, urgent care reports/EKG's, residential records)? Report findings @ -I reviewed prior charts and prior lab work in this patient Differential Diagnosis (chest pain, altered mental status, abdominal pain women, abdominal pain men, vaginal bleeding, weakness, fever, dyspnea, syncope, headache, dizziness, GI bleed, back pain, seizure, CVA, palpatations, mental health, musculoskeletal)? @ -Differential Altered Mental Status: Hypoglycemia, DKA, hypercapnia, ETOH, overdose, CO poisoning, trauma, myxedema coma, HTN encephalopathy, infection, encephalitis, psychosis, intercranial hemorrhage, hepatic encephalopathy, meningitis, CVA, this is not meant to be an all-inclusive list EKG interpreted by me (3pts min.). @ -See above X-rays interpreted by me (1pt min.). @ -Chest x-ray shows no acute abnormality CT interpreted by me (1pt min.). @ -CT of the brain shows no acute abnormality U/S interpreted by me (1pt. min.). @ -None done What testing was considered but not performed or refused? (CT, X-rays, U/S, labs)? Why? @ -None What meds were considered but not given or refused? Why? @ -None Did you discuss the management of the patient with other professionals (professionals i.e. , PA, SLAB MILLER OPERATOR, lab, RT, psych nurse, social worker school, manufacturing teacher, teacher, chief information officer, egg caser)? Give summary @ -I spoke with [facility]ist they agreed admit the patient Was smoking cessation discussed for >3mins.? @ -No Was critical care preformed (if so, how long)? @ -No Were there social determinants of health that impacted care today? How? (Homelessness, low income, unemployed, alcoholism, drug addiction, transportation, low edu. Level, literacy, decrease access to med. care, longterm, rehab)? @ -No Was there de-escalation of care discussed even if they declined (Discuss DNR or withdrawal of care, Hospice)? DNR status @ -No What co-morbidities impacted this encounter? (DM, HTN, Smoking, COPD, CAD, Cancer, CVA, ARF, Chemo, Hep., AIDS, mental health diagnosis, sleep apnea, morbid obesity)? @ -None Was patient admitted / discharged? Hospital course, mention meds given and route, prescriptions, significant lab abnormalities, going to OR and other pertinent info. @ -I went back to reevaluate the patient patient was much more at his baseline able to answer questions and having no complaints whatsoever. I spoke with the [facility]ist they agreed admit the patient. Patient was positive for COVID and patient had symptoms of stroke for EMS so patient will be admitted with a neurological consult. Currently patient has no neurodeficits Undiagnosed new problem with uncertain prognosis? @ -No Drug Therapy requiring intensive monitoring for toxicity (Heparin, Nitro, Insulin, Cardizem)? @ -No Were any procedures done? @ -No Diagnosis/symptom? @ -TIA Acute, or Chronic, or Acute on Chronic? @ -Acute Uncomplicated (without systemic symptoms) or Complicated (systemic symptoms)? @ -Complicated Side effects of treatment? @ -No Exacerbation, Progression, or Severe Exacerbation? @ -No Poses a threat to life or bodily function? How? (Chest pain, [place], [place], pneumonia, PE, COPD, DKA, ARF, appy, cholecystitis, CVA, Diverticulitis, Homicidal, Suicidal, threat to staff... and all critical care pts) @ -Yes this could lead to f a CVA and significant morbidity or mortality Diagnosis/symptom? @ -COVID-19 Acute, or Chronic, or Acute on Chronic? @ -Acute Uncomplicated (without systemic symptoms) or Complicated (systemic symptoms)? @ -Complicated Side effects of treatment? @ -None Exacerbation, Progression, or Severe Exacerbation] @ -No Poses a threat to life or bodily function? @ -No Diagnosis/symptom? @ -Altered mental status Acute, or Chronic, or Acute on Chronic? @ -Acute Uncomplicated (without systemic symptoms) or Complicated (systemic symptoms)? @ -Uncomplicated Side effects of treatment? @ -None Exacerbation, Progression, or Severe Exacerbation] @ -No Poses a threat to life or bodily function? @ -No - Lab Data Result diagrams: 04/11/23 17:09 04/11/23 17:09 Lab Results 04/11/23 04/11/23 04/11/23 Range/Units 17:09 17:09 17:09 WBC 6.8 (3.8-10.6) k/uL RBC 4.47 (4.30-5.90) m/uL Hgb 12.2 L (13.0-17.5) gm/dL Hct 35.7 L (39.0-53.0) % MCV 79.8 L (80.0-100.0) fL MCH 27.2 (25.0-35.0) pg MCHC 34.0 (31.0-37.0) g/dL RDW 15.3 (11.5-15.5) % Plt Count 135 L (150-450) k/uL MPV 8.7 Neutrophils % 82 % Lymphocytes % 8 % Monocytes % 8 % Eosinophils % 0 % Basophils % 1 % Neutrophils # 5.5 (1.3-7.7) k/uL Lymphocytes # 0.5 L (1.0-4.8) k/uL Monocytes # 0.6 (0-1.0) k/uL Eosinophils # 0.0 (0-0.7) k/uL Basophils # 0.0 (0-0.2) k/uL PT 11.0 (10.0-12.5) sec INR 1.0 (<1.2) APTT 24.4 (22.0-30.0) sec Sodium (137-145) mmol/L Potassium (3.5-5.1) mmol/L Chloride (98-107) mmol/L Carbon Dioxide (22-30) mmol/L Anion Gap mmol/L BUN (9-20) mg/dL Creatinine (0.66-1.25) mg/dL Est GFR (CKD-EPI)AfAm (>60 ml/min/1.73 sqM) Est GFR (CKD-EPI)NonAf (>60 ml/min/1.73 sqM) Glucose (74-99) mg/dL Plasma Lactic Acid Panfilo (0.7-2.0) mmol/L Calcium (8.4-10.2) mg/dL Total Bilirubin (0.2-1.3) mg/dL AST (17-59) U/L ALT (4-49) U/L Alkaline Phosphatase (38-126) U/L Total Protein (6.3-8.2) g/dL Albumin (3.5-5.0) g/dL Urine Color Light Yellow Urine Appearance Clear (Clear) Urine pH 5.5 (5.0-8.0) Ur Specific [place] 1.021 (1.001-1.035) Urine Protein 2+ H (Negative) Urine Glucose (UA) 1+ H (Negative) Urine Ketones Negative (Negative) Urine Blood Trace H (Negative) Urine Nitrite Negative (Negative) Urine Bilirubin Negative (Negative) Urine Urobilinogen <2.0 (<2.0) mg/dL Ur Leukocyte Esterase Negative (Negative) Urine RBC 1 (0-5) /hpf Urine WBC 2 (0-5) /hpf Urine Bacteria Rare H (None) /hpf Hyaline Casts 1 (0-2) /lpf Urine Mucus Rare H (None) /hpf Influenza Type A (PCR) (Not Detectd) Influenza Type B (PCR) (Not Detectd) RSV (PCR) (Not Detectd) SARS-CoV-2 (PCR) (Not Detectd) 04/11/23 04/11/23 04/11/23 Range/Units 17:09 17:09 17:09 WBC (3.8-10.6) k/uL RBC (4.30-5.90) m/uL Hgb (13.0-17.5) gm/dL Hct (39.0-53.0) % MCV (80.0-100.0) fL MCH (25.0-35.0) pg MCHC (31.0-37.0) g/dL RDW (11.5-15.5) % Plt Count (150-450) k/uL MPV Neutrophils % % Lymphocytes % % Monocytes % % Eosinophils % % Basophils % % Neutrophils # (1.3-7.7) k/uL Lymphocytes # (1.0-4.8) k/uL Monocytes # (0-1.0) k/uL Eosinophils # (0-0.7) k/uL Basophils # (0-0.2) k/uL PT (10.0-12.5) sec INR (<1.2) APTT (22.0-30.0) sec Sodium 131 L (137-145) mmol/L Potassium 4.3 (3.5-5.1) mmol/L Chloride 99 (98-107) mmol/L Carbon Dioxide 21 L (22-30) mmol/L Anion Gap 11 mmol/L BUN 13 (9-20) mg/dL Creatinine 0.67 (0.66-1.25) mg/dL Est GFR (CKD-EPI)AfAm >90 (>60 ml/min/1.73 sqM) Est GFR (CKD-EPI)NonAf >90 (>60 ml/min/1.73 sqM) Glucose 166 H (74-99) mg/dL Plasma Lactic Acid Panfilo 1.4 (0.7-2.0) mmol/L Calcium 8.5 (8.4-10.2) mg/dL Total Bilirubin 0.5 (0.2-1.3) mg/dL AST 34 (17-59) U/L ALT 30 (4-49) U/L Alkaline Phosphatase 72 (38-126) U/L Total Protein 6.3 (6.3-8.2) g/dL Albumin 4.1 (3.5-5.0) g/dL Urine Color Urine Appearance (Clear) Urine pH (5.0-8.0) Ur Specific [place] (1.001-1.035) Urine Protein (Negative) Urine Glucose (UA) (Negative) Urine Ketones (Negative) Urine Blood (Negative) Urine Nitrite (Negative) Urine Bilirubin (Negative) Urine Urobilinogen (<2.0) mg/dL Ur Leukocyte Esterase (Negative) Urine RBC (0-5) /hpf Urine WBC (0-5) /hpf Urine Bacteria (None) /hpf Hyaline Casts (0-2) /lpf Urine Mucus (None) /hpf Influenza Type A (PCR) Not Detected (Not Detectd) Influenza Type B (PCR) Not Detected (Not Detectd) RSV (PCR) Not Detected (Not Detectd) SARS-CoV-2 (PCR) Detected A (Not Detectd) Disposition Clinical Impression: TIA (transient ischemic attack), Altered mental status, COVID-19 Disposition: ADMITTED IP TO THIS HOSP Referrals: Malvin Kee MD [Primary Care Provider] - 1-2 days Time of Disposition: 20:00
--- NOTE | 2023-04-11 18:37 | CT ---
EXAMINATION TYPE: CT brain cspine wo con CT DLP: 1546.7 mGycm, Automated exposure control for dose reduction was used. DATE OF EXAM: 04/11/2023 5:59 PM COMPARISON: 02/06/2017. CLINICAL INDICATION:Male, 73 years old with history of Trauma; Trauma, fall from standing TECHNIQUE: Brain: Multiple axial CT images of the brain were obtained without IV contrast. Cspine: Axial CT images from the skull base to the inferior aspect of T2 we obtained without intraven ous contrast. Coronal and sagittal reformatted images were also reviewed. FINDINGS: Brain: Extra-axial spaces: No abnormal extra-axial fluid collections. Ventricular system: Within normal limits Cerebral parenchyma: No acute intraparenchymal hemorrhage or mass effect. The owusu-white junction is well differentiated. Cerebellum: Unremarkable. Mass effect: No evidence of midline shift. Intracranial vasculature: Atherosclerotic calcifications of the intracranial vessels. Soft tissues: Normal. Calvarium/osseous structures: No depressed skull fracture. Paranasal sinuses and mastoid air cells: Clear. Visualized orbits: Bilateral aphakia. Cervical spine: Fracture: None. Osseous structures: Multilevel degenerative disc disease changes with endplate spurring and disc oste ophyte complex's. Vertebral alignment: Within normal limits. Spinal canal/Neural Foramina: Disc osteophyte complexes at C4-C7 with at least mild spinal canal sten osis. Facet joint uncovertebral joint arthropathy scattered throughout the cervical spine with varyin g degrees of neural foraminal stenosis. Neck soft tissues: Prevertebral soft tissues are within normal limits. Other: The airway is patent. The lung apices are clear. Right carotid endarterectomy changes limits e valuation. IMPRESSION: 1. No acute intracranial process. 2. Nonspecific white matter changes, likely secondary to chronic small vessel ischemic disease. 3. No evidence of cervical spine fracture. 4. Moderate multilevel degenerative disc disease.
[2023-04-11] MEDS: ASPIRIN 325 MG TAB PO STA (21:11)
[2023-04-11 21:14] LABS: Glucose,Whole Blood 149 mg/dL (70-110)
[2023-04-12 06:24] LABS: Glucose,Whole Blood 202 mg/dL (70-110)
[2023-04-12] MEDS: ASPIRIN 325 MG TAB PO SCH (08:18)
[2023-04-12] MEDS ORDERED: NITROGLYCERIN SL TABS 0.4 MG TAB SUBLINGUAL PRN (08:43)
[2023-04-12] MEDS ORDERED: ONDANSETRON 4 MG/2 ML VIAL IVP PRN (08:44)
[2023-04-12] MEDS ORDERED: NALOXONE 0.4 MG/ML 1 ML VIAL IV PRN (08:44)
[2023-04-12] MEDS ORDERED: ALBUTEROL HFA INHALER INHALATION PRN (08:45)
[2023-04-12] MEDS ORDERED: DEXTROSE 50% SYRINGE 50 ML IVP PRN ×2 (08:54)
[2023-04-12] MEDS: FLUTICASONE 50MCG/SPRAY NASAL 16GM EA NOSTRIL SCH (09:00)
[2023-04-12 09:19] LABS: Chol/HDL Ratio 2.57 Ratio; LDL Cholesterol,Calculated 24.3 mg/dL (0.0-131.0)
[2023-04-12] MEDS: dexAMETHasone 2 MG TAB PO SCH (10:20)
[2023-04-12] MEDS: GABAPENTIN 400 MG CAP PO SCH ×2 (10:20→19:49)
[2023-04-12] MEDS: metFORMIN 500 MG TAB PO SCH (10:20)
[2023-04-12] MEDS: CLOPIDOGREL 75 MG TAB PO SCH (10:20)
[2023-04-12] MEDS: METOPROLOL TARTRATE 50 MG TAB PO SCH (10:21)
[2023-04-12] MEDS: ENOXAPARIN 40 MG/0.4 ML SYRINGE SQ SCH (10:21)
[2023-04-12] MEDS: ASCORBIC ACID 500 MG TAB PO SCH (10:21)
[2023-04-12] MEDS: LORATADINE 10 MG TAB PO SCH (10:22)
--- NOTE | 2023-04-12 12:33 | P.HPIM ---
History of Present Illness H&P Date: 04/12/23 Chief Complaint: Altered mental status * 73-year-old patient with past medical history significant for coronary artery disease history of PCI, history of CABG, history of diabetes mellitus, hyperlipidemia osteoarthritis, peripheral vascular disease, hypertension, history of throat cancer s/p radiation, presents to the emergency department with complaints of generalized weakness, confusion. Apparently per upon presentation patient mentioned that he had a fall at home and had complained of generalized weakness.. At home EMS was called when they arrived they noted patient had left-sided weakness and left-sided pronator drift. Patient was also noted to be confused. Per patient has been having issues with memory lately and has been worked up outpatient for dementia. * Workup initiated ER included EKG which showed sinus rhythm with a heart rate of 80, no significant ST segment changes * Patient had a chest x-ray done which was negative for acute cardiopulmonary process * CT head and cervical spine was obtained which was negative for acute intracranial process, nonspecific white matter changes were noted no cervical spine injury moderate degenerative disc disease noted * Review of blood work in ER showed WBC count of 6.8 hemoglobin 12.2 platelet count of 135 * Serum chemistry sodium 131 potassium 4.3, dioxide 21 BUN 13 creatinine 0.67 glucose 166 lactate of 1.4 * Urinalysis obtained showed trace amount of blood urine bacteria was rare * Patient tested positive for COVID, negative for RSV and influenza * Patient was placed on 2 L of oxygen, and admitted to medical floor for workup to rule out CVA with neurology consultation REVIEW OF SYSTEMS: Generalized weakness, confusion, fall CONSTITUTIONAL: No fever, no malaise, no fatigue. HEENT: No recent visual problems or hearing problems. Denied any sore throat. CARDIOVASCULAR: No chest pain, orthopnea, PND, no palpitations, no syncope. PULMONARY: No shortness of breath, no cough, no hemoptysis. GASTROINTESTINAL: No diarrhea, no nausea, no vomiting, no abdominal pain. NEUROLOGICAL: No headaches, no weakness, no numbness. HEMATOLOGICAL: Denies any bleeding or petechiae. GENITOURINARY: Denies any burning micturition, frequency, or urgency. MUSCULOSKELETAL/RHEUMATOLOGICAL: Denies any joint pain, swelling, or any muscle pain. ENDOCRINE: Denies any polyuria or polydipsia. PHYSICAL EXAMINATION: GENERAL: The patient is alert and oriented x 2 HEENT: Pupils are round and equally reacting to light. EOMI. CARDIOVASCULAR: S1 and S2 present. No murmurs, rubs, or gallops. PULMONARY: Decreased breath sounds bilaterally ABDOMEN: Soft, nontender, nondistended, normoactive bowel sounds. No palpable organomegaly. MUSCULOSKELETAL: No joint swelling or deformity. EXTREMITIES: No cyanosis, clubbing, or pedal edema. NEUROLOGICAL: SKIN: No rashes. Past Medical History Past Medical History: Cancer, Diabetes Mellitus, Eye Disorder, GERD/Reflux, Hyperlipidemia, Hypertension, Osteoarthritis (OA), Thyroid Disorder, Vascular Disorder Additional Past Medical History / Comment(s): Hx Throat Cancer, 2007 with radiation and removal. Seasonal allergies. 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 SEE DR NOEL'S HISTORY AND PHYSICAL FOR CARDIAC HISTORY, STROKE RIGHT EYE , History of Any Multi-Drug Resistant Organisms: MRSA Date of last positivie culture/infection: 08/09/22 MDRO Source:: Groin Past Surgical History: Coronary Bypass/CABG Additional Past Surgical History / Comment(s): 2 stents carotid artery, "catheterization bilateral legs", bilateral cataracts with lens implants, CABG about 5 years ago, COLONOSCOPY Past Anesthesia/Blood Transfusion Reactions: No Reported Reaction Past Psychological History: PTSD Smoking Status: Former smoker Past Alcohol Use History: None Reported Additional Past Alcohol Use History / Comment(s): Smoked from 10th grade though mid 20s, quit for 10 years, resumed at age 28, 1ppd, quit again in 2006. Past Drug Use History: None Reported - Past Family History Mother Family Medical History: No Reported History Medications and Allergies Home Medications Medication Instructions Recorded Confirmed Type Clopidogrel Bisulfate [Plavix] 75 mg PO DAILY 01/14/17 04/11/23 History Esomeprazole Magnesium [NexIUM] 40 mg PO DAILY 01/14/17 04/11/23 History glyBURIDE/METFORMIN HCL 2 tab PO AC-BID 01/14/17 04/11/23 History [Glucovance 5-500 mg] Aspirin [Adult Low Dose Aspirin EC] 81 mg PO DAILY 09/15/18 04/11/23 History Ascorbic Acid [Vitamin C] 250 mg PO BID 06/08/21 04/11/23 History Atorvastatin Calcium [Lipitor] 40 mg PO HS 06/08/21 04/11/23 History Fluticasone Nasal [place] [Flonase 1 spray EA NOSTRIL BID 06/08/21 04/11/23 History Nasal [place]] Gabapentin [Neurontin] 2,400 mg PO HS 06/08/21 04/11/23 History Fexofenadine HCl 180 mg PO DAILY 08/30/21 04/11/23 History Insulin Aspart [NovoLOG Flexpen] See Protocol SQ ACHS 08/30/21 04/11/23 History Clobetasol Propionate [Temovate 1 applic TOPICAL BID 04/11/23 04/11/23 History 0.05% Oint] Gabapentin 800 mg PO BID@0700,1600 04/11/23 04/11/23 History Levothyroxine Sodium [Synthroid] 125 mcg PO DAILY 04/11/23 04/11/23 History Metoprolol Tartrate [Lopressor] 50 mg PO BID 04/11/23 04/11/23 History Nitroglycerin Sl Tabs [Nitrostat] 0.4 mg SUBLINGUAL Q5M PRN 04/11/23 04/11/23 History Allergies Allergy/AdvReac Type Severity Reaction Status Date / Time No Known Allergies Allergy Verified 08/09/22 10:27 Physical Exam Vitals: Vital Signs Temp Pulse Pulse Resp BP BP Pulse Ox 04/12/23 02:22 98.3 F 89 15 153/88 99 04/11/23 22:04 98.1 F 63 15 117/69 92 L 04/11/23 21:00 98.1 F 62 18 143/65 94 L 04/11/23 19:32 67 16 106/68 96 04/11/23 18:45 95 04/11/23 18:42 99 F 73 18 139/71 89 L 04/11/23 16:55 101.7 F H 80 18 185/78 96 Intake and Output 04/11/23 04/12/23 04/12/23 22:59 06:59 14:59 Other: # Voids 1 Weight 97.522 kg Results CBC & Chem 7: 04/11/23 17:09 04/11/23 17:09 Labs: Abnormal Lab Results - Last 24 Hours (Table) 04/11/23 04/11/23 04/11/23 Range/Units 17:09 17:09 17:09 Hgb 12.2 L (13.0-17.5) gm/dL Hct 35.7 L (39.0-53.0) % MCV 79.8 L (80.0-100.0) fL Plt Count 135 L (150-450) k/uL Lymphocytes # 0.5 L (1.0-4.8) k/uL Sodium 131 L (137-145) mmol/L Carbon Dioxide 21 L (22-30) mmol/L Glucose 166 H (74-99) mg/dL POC Glucose (mg/dL) (70-110) mg/dL Urine Protein 2+ H (Negative) Urine Glucose (UA) 1+ H (Negative) Urine Blood Trace H (Negative) Urine Bacteria Rare H (None) /hpf Urine Mucus Rare H (None) /hpf SARS-CoV-2 (PCR) (Not Detectd) 04/11/23 04/11/23 04/12/23 Range/Units 17:09 21:13 06:23 Hgb (13.0-17.5) gm/dL Hct (39.0-53.0) % MCV (80.0-100.0) fL Plt Count (150-450) k/uL Lymphocytes # (1.0-4.8) k/uL Sodium (137-145) mmol/L Carbon Dioxide (22-30) mmol/L Glucose (74-99) mg/dL POC Glucose (mg/dL) 149 H 202 H (70-110) mg/dL Urine Protein (Negative) Urine Glucose (UA) (Negative) Urine Blood (Negative) Urine Bacteria (None) /hpf Urine Mucus (None) /hpf SARS-CoV-2 (PCR) Detected A (Not Detectd) Assessment and Plan Assessment: Assessment and plan Acute hypoxia with COVID-infection Acute metabolic and infectious encephalopathy Coronary artery disease history of CABG Diabetes mellitus type 2 History of hypertension History of peripheral vascular disease Generalized debility with fall Impaired cognition prior to admission * In regards to acute hypoxia, continue patient on as needed breathing treatmen t, started on dexamethasone follow-up on inflammatory markers, chest x-ray reviewed * In regards to acute encephalopathy CT head cervical spine negative neurology consulted will defer MRI to neurology continue patient on neurochecks * In regards to history of coronary artery disease, continue medical management including aspirin Lipitor Plavix * In regards to history of diabetes mellitus Accu-Cheks ACHS continue patient on correctional insulin, continue metformin glipizide * Will need physical therapy occupational therapy evaluation * CODE STATUS is full code Time with Patient: Greater than 30
[2023-04-12 12:49] LABS: Glucose,Whole Blood 233 mg/dL (70-110)
[2023-04-12] MEDS: PANTOPRAZOLE 40 MG TABLET PO SCH (13:01)
[2023-04-12] MEDS: LEVOTHYROXINE 125 MCG TAB PO SCH (13:01)
[2023-04-12] MEDS: glipiZIDE 10 MG TAB PO SCH (13:04)
[2023-04-12] MEDS: INSULIN ASPART (NovoLOG) 100 UNIT/ML VIAL SQ SCH (13:05)
[2023-04-12] MEDS: SODIUM CHLORIDE 0.9% 1,000 ML IV SCH (13:07)
--- NOTE | 2023-04-12 13:19 | P.CNNES ---
History of Present Illness Consult date: 04/12/23 Requesting physician: Te Baron Reason for Consult: TIA History of Present Illness: This is a 73-year-old gentleman who presented emergency department because of leg weakness. Patient is not a great historian so some of the history is obtained from medical record. According to the patient's yesterday he was sitt ing on the toilet and he wants stand up and he felt his legs were weak but denied passing out. Denies any difficulty getting his words out, visual disturbance, difficulty swallowing. He denies any history of stroke or TIA. He does not know how long the symptoms lasted for. He denies of any lower back pain. He denies of any fever or coughs recently. But he seems he's been coughing during this hospital visit. According to the ED note the patient was found standing in the bathroom at the sink but a little bit confused and very weak per the and the is seems that he fell and when she tried to get him over to the toilet he was weak and he almost fell again. It is reported the EMS stated that the one day arrived and they felt the left side was weak and he had a slight pronator drift and was confused. She denies of any headaches currently a. He feels back to baseline now. He has underlying history of diabetes, hypertension, thyroid issues. Some of the work-up during this hospital visit consisted of: On presentation patient had a white blood cell of 101.7 other than that no fu rther fevers. White blood cell 6.8 thousand. Sodium is 131, serum glucose is 166 but that POC glucose is running in the 200s currently Plasma lactic acid vein is 1.4 Calcium is 8.5, AST and ALT is within normal limits BUN/Cr are within normal limits Lipid panels triglyceride of 123, cholesterol of 80, LDLs 24 and HDL 31. SARS-CoV-[address] PCR is not detected. CT of the head is reported as no acute intracranial process. Nonspecific white matter changes, likely secondary due to chronic small vessel ischemic disease. I personally reviewed the CT of the head and I agree with the report. CT cervical spine is reported as no evidence of cervical spine fracture. Moderate multilevel degenerative disc disease. Per the ED note it is mentioned TIAs I assume his symptoms resolved when they evaluated the patient. Review of Systems The positive and negative as per HPI. Past Medical History Past Medical History: Cancer, Diabetes Mellitus, Eye Disorder, GERD/Reflux, Hyperlipidemia, Hypertension, Osteoarthritis (OA), Thyroid Disorder, Vascular Disorder Additional Past Medical History / Comment(s): Hx Throat Cancer, 2007 with radiation and removal. Seasonal allergies. 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 SEE DR NOEL'S HISTORY AND PHYSICAL FOR CARDIAC HISTORY, STROKE RIGHT EYE , History of Any Multi-Drug Resistant Organisms: MRSA Date of last positivie culture/infection: 08/09/22 MDRO Source:: Groin Past Surgical History: Coronary Bypass/CABG Additional Past Surgical History / Comment(s): 2 stents carotid artery, "catheterization bilateral legs", bilateral cataracts with lens implants, CABG about 5 years ago, COLONOSCOPY Past Anesthesia/Blood Transfusion Reactions: No Reported Reaction Past Psychological History: PTSD Smoking Status: Former smoker Past Alcohol Use History: None Reported Additional Past Alcohol Use History / Comment(s): Smoked from 10th grade though mid 20s, quit for 10 years, resumed at age 28, 1ppd, quit again in 2006. Past Drug Use History: None Reported - Past Family History Mother Family Medical History: No Reported History Medications and Allergies Home Medications Medication Instructions Recorded Confirmed Type Clopidogrel Bisulfate [Plavix] 75 mg PO DAILY 01/14/17 04/11/23 History Esomeprazole Magnesium [NexIUM] 40 mg PO DAILY 01/14/17 04/11/23 History glyBURIDE/METFORMIN HCL 2 tab PO AC-BID 01/14/17 04/11/23 History [Glucovance 5-500 mg] Aspirin [Adult Low Dose Aspirin EC] 81 mg PO DAILY 09/15/18 04/11/23 History Ascorbic Acid [Vitamin C] 250 mg PO BID 06/08/21 04/11/23 History Atorvastatin Calcium [Lipitor] 40 mg PO HS 06/08/21 04/11/23 History Fluticasone Nasal [place] [Flonase 1 spray EA NOSTRIL BID 06/08/21 04/11/23 History Nasal [place]] Gabapentin [Neurontin] 2,400 mg PO HS 06/08/21 04/11/23 History Fexofenadine HCl 180 mg PO DAILY 08/30/21 04/11/23 History Insulin Aspart [NovoLOG Flexpen] See Protocol SQ ACHS 08/30/21 04/11/23 History Clobetasol Propionate [Temovate 1 applic TOPICAL BID 04/11/23 04/11/23 History 0.05% Oint] Gabapentin 800 mg PO BID@0700,1600 04/11/23 04/11/23 History Levothyroxine Sodium [Synthroid] 125 mcg PO DAILY 04/11/23 04/11/23 History Metoprolol Tartrate [Lopressor] 50 mg PO BID 04/11/23 04/11/23 History Nitroglycerin Sl Tabs [Nitrostat] 0.4 mg SUBLINGUAL Q5M PRN 04/11/23 04/11/23 History Allergies Allergy/AdvReac Type Severity Reaction Status Date / Time No Known Allergies Allergy Verified 08/09/22 10:27 Physical Examination - Vital Signs Vital Signs: Vital Signs Temp Pulse Pulse Pulse Resp BP BP 04/12/23 10:40 85 04/12/23 10:20 14 04/12/23 08:45 97.4 F L 72 14 175/83 04/12/23 02:22 98.3 F 89 15 153/88 04/11/23 22:04 98.1 F 63 15 117/69 04/11/23 21:00 98.1 F 62 18 143/65 04/11/23 19:32 67 16 106/68 04/11/23 18:45 04/11/23 18:42 99 F 73 18 139/71 04/11/23 16:55 101.7 F H 80 18 185/78 Pulse Ox Pulse Ox 04/12/23 10:40 98 04/12/23 10:20 04/12/23 08:45 93 L 04/12/23 02:22 99 04/11/23 22:04 92 L 04/11/23 21:00 94 L 04/11/23 19:32 96 04/11/23 18:45 95 04/11/23 18:42 89 L 04/11/23 16:55 96 Intake and Output 04/11/23 04/12/23 04/12/23 22:59 06:59 14:59 Other: Voiding Method Toilet # Voids 1 Weight 97.522 kg GENERAL: The patient is sitting on side of bed and is not in acute distress. NEUROLOGICAL: Higher mental function: The patient is awake, alert, oriented to self, place and time. Patient is following commands. No aphasia and no neglect. Cranial nerves: The pupils are round, equal and reactive to light and accommodation. Visual acevedo are full to confrontation throughout. Extraocular movement is intact no nystagmus is noted. Facial sensation is normal to touch throughout. The facial strength is normal throughout. Hearing is moderate to severely decreased bilaterally to hand rub. Tongue is midline and moved [id number] without any difficulty. No dysarthria is noted. Shoulder shrug is normal bilaterally. Motor: Gait is minimally wide based but no requiring any assistance walking (he stated that is his baseline walking). The strength is 5 over 5 throughout. Normal tone and bulk. Cerebellum: Normal finger to nose heel to palacios bilaterally. Sensation: Sensation is normal to touch throughout. Reflexes (right/left): 2+ uppers while lowers are 1+ Plantars are mute bilaterally. Results - Laboratory Findings CBC and BMP: 04/11/23 17:09 04/11/23 17:09 Abnormal Lab Findings: Abnormal Labs 04/11/23 04/11/23 04/11/23 02:00 17:09 17:09 Hgb 12.2 L Hct 35.7 L MCV 79.8 L Plt Count 135 L Lymphocytes # 0.5 L Sodium Carbon Dioxide Glucose POC Glucose (mg/dL) HDL Cholesterol 31.10 L Urine Protein 2+ H Urine Glucose (UA) 1+ H Urine Blood Trace H Urine Bacteria Rare H Urine Mucus Rare H SARS-CoV-2 (PCR) 04/11/23 04/11/23 04/11/23 17:09 17:09 21:13 Hgb Hct MCV Plt Count Lymphocytes # Sodium 131 L Carbon Dioxide 21 L Glucose 166 H POC Glucose (mg/dL) 149 H HDL Cholesterol Urine Protein Urine Glucose (UA) Urine Blood Urine Bacteria Urine Mucus SARS-CoV-2 (PCR) Detected A 04/12/23 04/12/23 06:23 12:44 Hgb Hct MCV Plt Count Lymphocytes # Sodium Carbon Dioxide Glucose POC Glucose (mg/dL) 202 H 233 H HDL Cholesterol Urine Protein Urine Glucose (UA) Urine Blood Urine Bacteria Urine Mucus SARS-CoV-2 (PCR) Assessment and Plan Assessment: This is a 73-year-old gentleman who presented emergency department because of fusion, falling episodes and EMS felt he had left-sided weakness with a pronator drift. It seems that his symptoms resolved by the time he was a valid by the ED team. He is found to have acute COVID-19. His episode of confusion with initially generalized weakness then later was felt to have left-sided weakness. Unknown exact etiology. Possible TIA vs result of COVID-19. Acute COVID-19. Baseline confusion and per has some dementia that is reported. Hypertension Diabetes mellitus Hypothyroidism History of coronary artery disease status post stent and CABG ARTHRITIS Plan: He is on aspirin 81 mg, Plavix 75 mg (both home medication). Is Lipitor 40mg daily. If MRI is positive for stroke then would recommend changing Plavix to Brilinta 90mg bid. I ordered MRI the brain. I also ordered MRI lumbar spine since the patient stated that he only had leg weakness and denied any confusion or of falling. I ordered a routine EEG Ordered vitamin B-12, folate, TSH Hemoglobin A1c is ordered by the primary team is pending Neck neurochecks Cardiac monitoring PT, OT and BANKING ATTORNEY are consulted We'll defer the rest of the medical management to primary team For DVT prophylaxis patient is on Lovenox The patient is requesting the to go home and I notified the the primary and his nurse that the his is to be contacted since he has history of underlying confusion. If his wants him to be discharged without workup then he needs to go AGAINST MEDICAL ADVICE. Thank you for the consultation Time with Patient: Greater than 30
--- NOTE | 2023-04-12 15:44 | P.CNPUL ---
History of Present Illness Consult date: 04/12/23 Requesting physician: Malvin Kee Reason for consult: dyspnea, hypoxemia Chief complaint: Shortness of breath. History of present illness: Pulmonary consult dated April 12, 2023. 73-year-old male seen in the emergency room, on April 11, for a fall, and altered mental status. We were consulted for shortness of breath/hypoxemia. The patient presented to the emergency department, and apparently was found to be confused at home, and for that reason, EMS was called, and brought him into the hospital for evaluation. He apparently was initially seemed to have weakness, to the left side of his body. According to EMS, he was confused. For that reason, he was admitted. We were consulted, because of apparent shortness of breath. We interviewed the patient today, he denies being short of breath. He states he did have a cough. He denies any phlegm production. The patient did test positive for coronavirus. He did smoke for about 20 years, many years back. He denies a history of any lung issues. He states he has never been diagnosed with COPD, asthma, etc. Currently, he is on 3 L, but he was not wearing it when we walked into the room. He apparently has a history of diab etes, GERD, hyperlipidemia, hypertension, osteoarthritis, hypothyroidism, throat cancer, and previous bypass surgery. His primary care physician is Dr. Malvin Kee. Laboratory data includes a white count of 6.8, hemoglobin 12.2, hematocrit 35.7, platelet count 135,000. Coagulation studies were normal. Sodium 131, potassium 4.3, chloride 99, CO2 21, BUN 13, creatinine 0.67. Glucose is 233. The urine has 2+ protein and 1+ glucose. There is trace blood. Rare bacteria. He did test positive for coronavirus. A head and cervical spine CT showed no acute intracranial process, and no evidence of cervical spine fracture. Chest x-ray, as interpreted by radiology, was normal. I believe it t o be normal as well. Review of Systems REVIEW OF SYSTEMS: CONSTITUTIONAL: [Negative.] NEUROLOGIC: Mental status changes. HEENT: [ Negative.] CARDIAC: [Negative.] PULMONARY: Vague shortness of breath. GI: [Negative.] : [Negative.] RHEUMATOLOGIC: [ Negative.] IMMUNOLOGIC: [ Negative.] ENDOCRINE: [Negative. ] DERMATOLOGIC: [Negative.] Past Medical History Past Medical History: Cancer, Diabetes Mellitus, Eye Disorder, GERD/Reflux, Hyperlipidemia, Hypertension, Osteoarthritis (OA), Thyroid Disorder, Vascular Disorder Additional Past Medical History / Comment(s): Hx Throat Cancer, 2007 with ra diation and removal. Seasonal allergies. 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 SEE DR NOEL'S HISTORY AND PHYSICAL FOR CARDIAC HISTORY, STROKE RIGHT EYE , History of Any Multi-Drug Resistant Organisms: MRSA Date of last positivie culture/infection: 08/09/22 MDRO Source:: Groin Past Surgical History: Coronary Bypass/CABG Additional Past Surgical History / Comment(s): 2 stents carotid artery, "catheterization bilateral legs", bilateral cataracts with lens implants, CABG about 5 years ago, COLONOSCOPY Past Anesthesia/Blood Transfusion Reactions: No Reported Reaction Past Psychological History: PTSD Smoking Status: Former smoker Past Alcohol Use History: None Reported Additional Past Alcohol Use History / Comment(s): Smoked from 10th grade though mid 20s, quit for 10 years, resumed at age 28, 1ppd, quit again in 2006. Past Drug Use History: None Reported - Past Family History Mother Family Medical History: No Reported History Medications and Allergies Home Medications Medication Instructions Recorded Confirmed Type Clopidogrel Bisulfate [Plavix] 75 mg PO DAILY 01/14/17 04/11/23 History Esomeprazole Magnesium [NexIUM] 40 mg PO DAILY 01/14/17 04/11/23 History glyBURIDE/METFORMIN HCL 2 tab PO AC-BID 01/14/17 04/11/23 History [Glucovance 5-500 mg] Aspirin [Adult Low Dose Aspirin EC] 81 mg PO DAILY 09/15/18 04/11/23 History Ascorbic Acid [Vitamin C] 250 mg PO BID 06/08/21 04/11/23 History Atorvastatin Calcium [Lipitor] 40 mg PO HS 06/08/21 04/11/23 History Fluticasone Nasal [place] [Flonase 1 spray EA NOSTRIL BID 06/08/21 04/11/23 History Nasal [place]] Gabapentin [Neurontin] 2,400 mg PO HS 06/08/21 04/11/23 History Fexofenadine HCl 180 mg PO DAILY 08/30/21 04/11/23 History Insulin Aspart [NovoLOG Flexpen] See Protocol SQ ACHS 08/30/21 04/11/23 History Clobetasol Propionate [Temovate 1 applic TOPICAL BID 04/11/23 04/11/23 History 0.05% Oint] Gabapentin 800 mg PO BID@0700,1600 04/11/23 04/11/23 History Levothyroxine Sodium [Synthroid] 125 mcg PO DAILY 04/11/23 04/11/23 History Metoprolol Tartrate [Lopressor] 50 mg PO BID 04/11/23 04/11/23 History Nitroglycerin Sl Tabs [Nitrostat] 0.4 mg SUBLINGUAL Q5M PRN 04/11/23 04/11/23 History Allergies Allergy/AdvReac Type Severity Reaction Status Date / Time No Known Allergies Allergy Verified 08/09/22 10:27 Physical Exam Osteopathic Statement: *. No significant issues noted on an osteopathic structural exam other than those noted in the History and Physical/Consult. Vitals: Vital Signs Temp Pulse Pulse Pulse Resp BP BP 04/12/23 14:45 97.4 F L 64 14 160/78 04/12/23 12:45 97.7 F 68 18 04/12/23 10:40 85 04/12/23 10:20 14 04/12/23 08:45 97.4 F L 72 14 175/83 04/12/23 02:22 98.3 F 89 15 153/88 04/11/23 22:04 98.1 F 63 15 117/69 04/11/23 21:00 98.1 F 62 18 143/65 04/11/23 19:32 67 16 106/68 04/11/23 18:45 04/11/23 18:42 99 F 73 18 139/71 04/11/23 16:55 101.7 F H 80 18 185/78 BP Pulse Ox Pulse Ox 04/12/23 14:45 95 04/12/23 12:45 148/84 95 04/12/23 10:40 98 04/12/23 10:20 04/12/23 08:45 93 L 04/12/23 02:22 99 04/11/23 22:04 92 L 04/11/23 21:00 94 L 04/11/23 19:32 96 04/11/23 18:45 95 04/11/23 18:42 89 L 04/11/23 16:55 96 Intake and Output 0204/12/23 04/12/23 06:59 14:59 22:59 Other: Voiding Method Toilet # Voids 1 1 No acute distress, oriented 3. The patient was not wearing any oxygen, although, he was supposed to be on 3 L. He adamantly denied being short of breath. He only admitted to occasional cough. HEENT examination is grossly unremarkable. Mucous membranes are moist. No oral lesions. Neck supple. Full range of motion. No adenopathy thyromegaly or neck vein distention. Cardiovascular examination reveals regular rhythm rate. S1-S2 normal. No S3 or S4. No discernible murmur noted. Heart rate 64 bpm. Lungs reveal clear breath sounds. Breath sounds are equal bilaterally. No adventitious lung sounds including wheezes rhonchi or crackles. Room air saturations are documented at 95%. Abdomen soft bowel sounds are heard. No masses or tenderness. Extremities are intact. No cyanosis clubbing or edema. Skin is without rash or lesion. Neurologic examination is brief but nonfocal. Results - Laboratory Findings CBC and BMP: 04/11/23 17:09 04/11/23 17:09 PT/INR, D-dimer PT 11.0 sec (10.0-12.5) 04/11/23 17:09 INR 1.0 (<1.2) 04/11/23 17:09 Abnormal lab findings: Abnormal Labs 04/11/23 04/11/23 04/11/23 02:00 17:09 17:09 Hgb 12.2 L Hct 35.7 L MCV 79.8 L Plt Count 135 L Lymphocytes # 0.5 L Sodium Carbon Dioxide Glucose POC Glucose (mg/dL) HDL Cholesterol 31.10 L Urine Protein 2+ H Urine Glucose (UA) 1+ H Urine Blood Trace H Urine Bacteria Rare H Urine Mucus Rare H SARS-CoV-2 (PCR) 04/11/23 04/11/23 04/11/23 17:09 17:09 21:13 Hgb Hct MCV Plt Count Lymphocytes # Sodium 131 L Carbon Dioxide 21 L Glucose 166 H POC Glucose (mg/dL) 149 H HDL Cholesterol Urine Protein Urine Glucose (UA) Urine Blood Urine Bacteria Urine Mucus SARS-CoV-2 (PCR) Detected A 04/12/23 04/12/23 06:23 12:44 Hgb Hct MCV Plt Count Lymphocytes # Sodium Carbon Dioxide Glucose POC Glucose (mg/dL) 202 H 233 H HDL Cholesterol Urine Protein Urine Glucose (UA) Urine Blood Urine Bacteria Urine Mucus SARS-CoV-2 (PCR) - Diagnostic Findings Chest x-ray: image reviewed Assessment and Plan Assessment: Coronavirus infection, without obvious coronavirus associated pneumonia. Cough, may relate to viral tracheobronchitis. Acute mental status changes, currently being evaluated by the primary service, and neurology. History of throat cancer. History of diabetes. History of hypertension. History of hyperlipidemia. History of hypothyroidism. History of osteoarthritis. Prior history of bypass grafting. History of stenting of the carotid artery. Prior history of tobacco use. Plan: Plan dated April 12, 2023. Room air saturations are being documented at 95 to 96%. The patient denies being short of breath. He does have occasional cough. He did test positive for coronavirus. His chest x-ray is normal. Brain CT and cervical spine CT is negative. The patient did smoke for about 20 years, many years ago. He denies a prior history of any lung disease. We will continue to follow. If his room air saturations are above 93%, oxygen can be discontinued. No additional recommendations at this time. Labs, x-rays, and medications are all reviewed. Time with Patient: Greater than 30
[2023-04-12 17:33] LABS: Glucose,Whole Blood 225 mg/dL (70-110)
[2023-04-12] MEDS: ATORVASTATIN 40 MG TAB PO SCH (19:49)
[2023-04-12 20:34] LABS: Glucose,Whole Blood 269 mg/dL (70-110)
[2023-04-12] MEDS: MELATONIN 3 MG TABLET PO SCH (20:58)
--- NOTE | 2023-04-13 00:04 | EEG ---
ELECTROENCEPHALOGRAM REPORT CLINICAL HISTORY: This is a 73-year-old gentleman with confusion. Video EEG is obtained to evaluate for seizure epileptiform activity. RELEVANT MEDICATION: The patient is on gabapentin. EEG TYPE: A routine 21-channel EEG with video using the 10/20 electrode placement system. DESCRIPTION: Wakefulness is only obtained. During awake state, the posterior-dominant rhythm consists of [id number] voltage of 9 hertz activity that is well modulated, well sustained. There is no physiological stage 2 sleep architecture. There is no focal slowing. Interictal and ictal is none. ACTIVATION PROCEDURE: Photic stimulation. Hyperventilation is not performed. CLINICAL INTERPRETATION: This is a normal routine EEG. There is no focal slowing, epileptiform discharge, or seizure on the EEG. A normal routine EEG does not rule out underlying epilepsy. Clinical correlation is recommended. MMODL / IJN: [id number] /
[2023-04-13 06:03] LABS: Glucose,Whole Blood 210 mg/dL (70-110)
[2023-04-13 08:23] LABS: Glucose,Whole Blood 186 mg/dL (70-110)
[2023-04-13] MEDS: ASPIRIN 81 MG PO SCH (09:26)
[2023-04-13 09:45] LABS: Basophils # (A) 0 X 10*3/uL (0.00-0.10); Basophils % (A) 0 %; Eosinophils # (A) 0 X 10*3/uL (0.04-0.35); Eosinophils % (A) 0 %; HCT 33.1 % (39.6-50.0); HGB 11.1 g/dL (13.0-17.0); Lymphocytes # (A) 0.65 X 10*3/uL (0.90-5.00); Lymphocytes % (A) 11.6 %; MCH 26.2 pg (27.0-32.0); MCHC 33.5 g/dL (32.0-37.0); MCV 78.3 FL (80.0-97.0); Mean Platelet Volume 10.3 FL (9.5-12.2); Monocytes # (A) 0.72 X 10*3/uL (0.20-1.00); Monocytes % (A) 12.9 %; NRBC Per 100 WBC 0 X 10*3/uL (0.00-0.01); Neutrophils # (A) 4.21 X 10*3/uL (1.80-7.70); Neutrophils % (A) 75.1 %; Platelet Count 175 X 10*3/uL (140-440); RBC 4.23 X 10*6/uL (4.40-5.60); RDW 15.2 % (11.5-14.5)
[2023-04-13 09:56] LABS: ALT 25 U/L (10-49); AST 27 U/L (14-35); Albumin 3.7 g/dL (3.8-4.9); Albumin/Globulin Ratio 1.95 Ratio (1.60-3.17); Alkaline Phosphatase 58 U/L (41-126); BUN/Creat Ratio 24.57 Ratio (12.00-20.00); Blood Urea Nitrogen 17.2 mg/dL (9.0-27.0); Calcium 8.8 mg/dL (8.7-10.3); Carbon Dioxide 23.1 mmol/L (21.6-31.8); Chloride 99 mmol/L (96-109); Globulin 1.9 g/dL (1.6-3.3); Glucose 211 mg/dL (70-110); Potassium 4.4 mmol/L (3.5-5.5); Sodium 133 mmol/L (135-145); Total Bilirubin 0.3 mg/dL (0.3-1.2); Total Protein 5.6 g/dL (6.2-8.2)
--- NOTE | 2023-04-13 10:01 | P.PN ---
Subjective Progress Note Date: 04/13/23 73-year-old male seen in the emergency room, on April 11, for a fall, and altered mental status. We were consulted for shortness of breath/hypoxemia. The patient presented to the emergency department, and apparently was found to be confused at home, and for that reason, EMS was called, and brought him into the hospital for evaluation. He apparently was initially seemed to have weakness, to the left side of his body. According to EMS, he was confused. For that reason, he was admitted. We were consulted, because of apparent shortness of breath. We interviewed the patient today, he denies being short of breath. He states he did have a cough. He denies any phlegm production. The patient di d test positive for coronavirus. He did smoke for about 20 years, many years back. He denies a history of any lung issues. He states he has never been diagnosed with COPD, asthma, etc. Currently, he is on 3 L, but he was not wearing it when we walked into the room. He apparently has a history of diabetes, GERD, hyperlipidemia, hypertension, osteoarthritis, hypothyroidism, throat cancer, and previous bypass surgery. His primary care physician is Dr. Malvin Kee. Laboratory data includes a white count of 6.8, hemoglobin 12.2, hematocrit 35.7, platelet count 135,000. Coagulation studies were normal. Sodium 131, potassium 4.3, chloride 99, CO2 21, BUN 13, creatinine 0.67. Glucose is 233. The urine has 2+ protein and 1+ glucose. There is trace blood. Rare bacteria. He did test positive for coronavirus. A head and cervical spine CT showed no acute intracranial process, and no evidence of cervical spine fracture. Chest x-ray, as interpreted by radiology, was normal. I believe it to be normal as well. The patient is seen today April 13, 2023 in follow-up on the regular medical floor. He is currently resting comfortably in bed. Awake and alert in no acute distress. He is maintaining O2 saturations in the 90s on room air. No IV fluids. He denies any shortness of breath, cough or congestion. He did test positive for COVID-19 without evidence of COVID-19 pneumonia. Cultures revealed no growth. White count 5.6. Hemoglobin 11.1. Platelets 175. Glucose 210. He remains on vitamin supplements. Continued on Decadron. Lovenox for DVT prophylaxis. Objective - Vital Signs Vital signs: Vital Signs Temp 97.6 F 04/13/23 06:45 Pulse 61 04/13/23 06:45 Resp 16 04/13/23 06:45 BP 144/70 04/13/23 06:45 Pulse Ox 93 L 04/13/23 09:53 FiO2 Intake & Output 04/12/23 04/13/23 04/13/23 18:59 06:59 18:59 Other: Voiding Method Toilet Toilet # Voids 1 2 - Exam GENERAL EXAM: Alert, pleasant 73-year-old male on room air, comfortable in no apparent distress. HEAD: Normocephalic. EYES: Normal reaction of pupils, equal size. NOSE: Clear with pink turbinates. THROAT: No erythema or exudates. NECK: No masses, no JVD. CHEST: No chest wall deformity. LUNGS: Equal air entry with no crackles, wheeze, rhonchi or dullness. CVS: S1 and S2 normal with no audible murmur, regular rhythm. ABDOMEN: No hepatosplenomegaly, normal bowel sounds, no guarding or rigidity. SPINE: No scoliosis or deformity SKIN: No rashes CENTRAL NERVOUS SYSTEM: No focal deficits, tone is normal in all 4 extremities. EXTREMITIES: There is no peripheral edema. No clubbing, no cyanosis. Peripheral pulses are intact. - Labs CBC & Chem 7: 04/13/23 05:59 04/11/23 17:09 Labs: Abnormal Lab Results - Last 24 Hours (Table) 04/12/23 04/12/23 04/12/23 Range/Units 12:44 17:32 20:33 RBC (4.40-5.60) X 10*6/uL Hgb (13.0-17.0) g/dL Hct (39.6-50.0) % MCV (80.0-97.0) FL MCH (27.0-32.0) pg RDW (11.5-14.5) % Lymphocytes # (0.90-5.00) X 10*3/uL Eosinophils # (0.04-0.35) X 10*3/uL POC Glucose (mg/dL) 233 H 225 H 269 H (70-110) mg/dL 04/13/23 04/13/2304/13/24 Range/Units 05:59 06:02 08:21 RBC 4.23 L (4.40-5.60) X 10*6/uL Hgb 11.1 L (13.0-17.0) g/dL Hct 33.1 L (39.6-50.0) % MCV 78.3 L (80.0-97.0) FL MCH 26.2 L (27.0-32.0) pg RDW 15.2 H (11.5-14.5) % Lymphocytes # 0.65 L (0.90-5.00) X 10*3/uL Eosinophils # 0 L (0.04-0.35) X 10*3/uL POC Glucose (mg/dL) 210 H 186 H (70-110) mg/dL Microbiology - Last 24 Hours (Table) 04/11/23 17:09 Blood Culture - Preliminary Blood 04/11/23 17:09 Blood Culture Gram Stain - Preliminary Blood Assessment and Plan Assessment: Coronavirus infection, without obvious coronavirus associated pneumonia. Cough, may relate to viral tracheobronchitis Acute mental status changes, currently being evaluated by the primary service, and neurology. EEG within normal limits. CT brain no acute intracranial process History of throat cancer History of diabetes History of hypertension History of hyperlipidemia History of hypothyroidism History of osteoarthritis Prior history of bypass grafting History of stenting of the carotid artery Prior history of tobacco use Plan: The patient was seen and evaluated EEG, medications reviewed Remains stable and on room air No pulmonary complaints Continue vitamin supplements Home once cleared by neurology I have personally seen and examined the patient, performed the documentation and the assessment and plan as written. Number of minutes spent on the visit: 10.
[2023-04-13 11:49] LABS: Glucose,Whole Blood 253 mg/dL (70-110)
[2023-04-13] MEDS: CYANOCOBALAMIN 1,000 MCG/ML 1 ML VIAL IM ONE (12:51)
--- NOTE | 2023-04-13 14:08 | P.PN ---
Subjective Progress Note Date: 04/13/23 I am following-up with patient and he feels about the same. He wants him to stay in hospital until work-up is complete. Pending MRI and needs clearance since has stents. Objective - Vital Signs Vital signs: Vital Signs Temp 97.6 F 04/13/23 06:45 Pulse 61 04/13/23 06:45 Resp 16 04/13/23 06:45 BP 144/70 04/13/23 06:45 Pulse Ox 93 L 04/13/23 09:53 FiO2 Intake & Output 04/12/23 04/13/23 04/13/23 18:59 06:59 18:59 Other: Voiding Method Toilet Toilet # Voids 1 2 - Exam GENERAL: The patient is sitting on side of bed and is not in acute distress. NEUROLOGICAL: Higher mental function: The patient is awake, alert, oriented to self, place and time. Patient is following commands. No aphasia and no neglect. Cranial nerves: The pupils are round, equal and reactive to light and accommodation. Visual acevedo are full to confrontation throughout. Extraocular movement is intact no nystagmus is noted. Facial sensation is normal to touch throughout. The facial strength is normal throughout. Hearing is moderate to severely decreased bilaterally to hand rub. Tongue is midline and moved [id number] without any difficulty. No dysarthria is noted. Shoulder shrug is normal bilaterally. Motor: The strength is 5 over 5 throughout. Normal tone and bulk. Cerebellum: Normal finger to nose heel to palacios bilaterally. Sensation: Sensation is normal to touch throughout. Reflexes (right/left): 2+ uppers while lowers are 1+ Plantars are mute bilaterally. Some of the work-up during this hospital visit consisted of: On presentation patient had a white blood cell of 101.7 other than that no further fevers. White blood cell 6.8 thousand. Sodium is 131, serum glucose is 166 but that POC glucose is running in the 200s currently Plasma lactic acid vein is 1.4 Calcium is 8.5, AST and ALT is within normal limits BUN/Cr are within normal limits Vitamin B12: 279 Serum folate 14.9 TSH: 0.597 Lipid panels triglyceride of 123, cholesterol of 80, LDLs 24 and HDL 31. SARS-CoV-2 PCR is not detected. CRP: 7.90 CT of the head is reported as no acute intracranial process. Nonspecific white matter changes, likely secondary due to chronic small vessel ischemic disease. I personally reviewed the CT of the head and I agree with the report. CT cervical spine is reported as no evidence of cervical spine fracture. Moderate multilevel degenerative disc disease. Routine EEG: Normal. - Labs CBC & Chem 7: 04/13/23 05:59 04/13/23 05:59 Labs: Abnormal Lab Results - Last 24 Hours (Table) 04/12/23 04/12/23 04/13/23 Range/Units 17:32 20:33 05:59 RBC 4.23 L (4.40-5.60) X 10*6/uL Hgb 11.1 L (13.0-17.0) g/dL Hct 33.1 L (39.6-50.0) % MCV 78.3 L (80.0-97.0) FL MCH 26.2 L (27.0-32.0) pg RDW 15.2 H (11.5-14.5) % Lymphocytes # 0.65 L (0.90-5.00) X 10*3/uL Eosinophils # 0 L (0.04-0.35) X 10*3/uL Sodium (135-145) mmol/L BUN/Creatinine Ratio (12.00-20.00) Ratio Glucose (70-110) mg/dL POC Glucose (mg/dL) 225 H 269 H (70-110) mg/dL C-Reactive Protein (0.00-0.80) mg/dL Total Protein (6.2-8.2) g/dL Albumin (3.8-4.9) g/dL 04/13/23 04/13/23 04/13/23 Range/Units 05:59 06:02 08:21 RBC (4.40-5.60) X 10*6/uL Hgb (13.0-17.0) g/dL Hct (39.6-50.0) % MCV (80.0-97.0) FL MCH (27.0-32.0) pg RDW (11.5-14.5) % Lymphocytes # (0.90-5.00) X 10*3/uL Eosinophils # (0.04-0.35) X 10*3/uL Sodium 133 L (135-145) mmol/L BUN/Creatinine Ratio 24.57 H (12.00-20.00) Ratio Glucose 211 H (70-110) mg/dL POC Glucose (mg/dL) 210 H 186 H (70-110) mg/dL C-Reactive Protein 7.90 H (0.00-0.80) mg/dL Total Protein 5.6 L (6.2-8.2) g/dL Albumin 3.7 L (3.8-4.9) g/dL 04/13/23 Range/Units 11:47 RBC (4.40-5.60) X 10*6/uL Hgb (13.0-17.0) g/dL Hct (39.6-50.0) % MCV (80.0-97.0) FL MCH (27.0-32.0) pg RDW (11.5-14.5) % Lymphocytes # (0.90-5.00) X 10*3/uL Eosinophils # (0.04-0.35) X 10*3/uL Sodium (135-145) mmol/L BUN/Creatinine Ratio (12.00-20.00) Ratio Glucose (70-110) mg/dL POC Glucose (mg/dL) 253 H (70-110) mg/dL C-Reactive Protein (0.00-0.80) mg/dL Total Protein (6.2-8.2) g/dL Albumin (3.8-4.9) g/dL Microbiology - Last 24 Hours (Table) 04/11/23 17:09 Blood Culture Gram Stain - Preliminary Blood 04/11/23 17:09 Blood Culture - Preliminary Blood Assessment and Plan Assessment: This is a 73-year-old gentleman who presented emergency department because of fusion, falling episodes and EMS felt he had left-sided weakness with a pronator drift. It seems that his symptoms resolved by the time he was a valid by the ED team. He is found to have acute COVID-19. His episode of confusion with initially generalized weakness then later was felt to have left-sided weakness. Unknown exact etiology. Possible TIA vs result of COVID-19. ---mentation and weakness improved. Acute COVID-19. Low normal Vitamin B12 (279) Baseline confusion and per has some dementia that is reported. Hypertension Diabetes mellitus Hypothyroidism History of coronary artery disease status post stent and CABG ARTHRITIS Plan: He is on aspirin 81 mg, Plavix 75 mg (both home medication). Is Lipitor 40mg daily. If MRI is positive for stroke then would recommend changing Plavix to Brilinta 90mg bid. Pending MRI the brain. Pending MRI lumbar spine since the patient stated that he only had leg weakness and denied any confusion or of falling. Because of low normal Vitamin B12, I started him on Vitamin B12 1000mcg daily PO and 1gm IM once. Neck neurochecks Cardiac monitoring PT, OT and READING AIDE are consulted HbA1c ordered by primary team and is pending. We'll defer the rest of the medical management to primary team For DVT prophylaxis patient is on Lovenox The patient was requesting to go home but it seems he has some underlying confusion and his stated he needs to have work-up. The plan is discussed with patient, his who is at bedside and primary team. Dr. Jordan will resume neurology service on 04/15/23 A.M. Time with Patient: Less than 30
--- NOTE | 2023-04-13 14:36 | P.PN ---
Subjective Progress Note Date: 04/13/23 * 73-year-old patient with past medical history significant for coronary artery disease history of PCI, history of CABG, history of diabetes mellitus, hyperlipidemia osteoarthritis, peripheral vascular disease, hypertension, history of throat cancer s/p radiation, presents to the emergency department with complaints of generalized weakness, confusion. Apparently per upon presentation patient mentioned that he had a fall at home and had complained of generalized weakness.. At home EMS was called when they arrived they noted patient had left-sided weakness and left-sided pronator drift. Patient was also noted to be confused. Per patient has been having issues with memory lately and has been worked up outpatient for dementia. * Workup initiated ER included EKG which showed sinus rhythm with a heart rate of 80, no significant ST segment changes * Patient had a chest x-ray done which was negative for acute cardiopulmonary process * CT head and cervical spine was obtained which was negative for acute intracranial process, nonspecific white matter changes were noted no cervical spine injury moderate degenerative disc disease noted * Review of blood work in ER showed WBC count of 6.8 hemoglobin 12.2 platelet count of 135 * Serum chemistry sodium 131 potassium 4.3, dioxide 21 BUN 13 creatinine 0.67 glucose 166 lactate of 1.4 * Urinalysis obtained showed trace amount of blood urine bacteria was rare * Patient tested positive for COVID, negative for RSV and influenza * Patient was placed on 2 L of oxygen, and admitted to medical floor for workup to rule out CVA with neurology consultation * 04/13/2023: Patient seen and evaluated bedside, mood is better today, patient stable through the night. at bedside as well. CRP elevated at 7.9, on room air, continue dexamethasone REVIEW OF SYSTEMS: Generalized weakness, confusion, fall IMPROVED CONSTITUTIONAL: No fever, no malaise, no fatigue. HEENT: No recent visual problems or hearing problems. Denied any sore throat. CARDIOVASCULAR: No chest pain, orthopnea, PND, no palpitations, no syncope. PULMONARY: No shortness of breath, no cough, no hemoptysis. GASTROINTESTINAL: No diarrhea, no nausea, no vomiting, no abdominal pain. NEUROLOGICAL: No headaches, no weakness, no numbness. HEMATOLOGICAL: Denies any bleeding or petechiae. GENITOURINARY: Denies any burning micturition, frequency, or urgency. MUSCULOSKELETAL/RHEUMATOLOGICAL: Denies any joint pain, swelling, or any muscle pain. ENDOCRINE: Denies any polyuria or polydipsia. PHYSICAL EXAMINATION: GENERAL: The patient is alert and oriented x 3 HEENT: Pupils are round and equally reacting to light. EOMI. CARDIOVASCULAR: S1 and S2 present. No murmurs, rubs, or gallops. PULMONARY: Decreased breath sounds bilaterally ABDOMEN: Soft, nontender, nondistended, normoactive bowel sounds. No palpable organomegaly. MUSCULOSKELETAL: No joint swelling or deformity. EXTREMITIES: No cyanosis, clubbing, or pedal edema. NEUROLOGICAL: Alert and oriented 3 motor strength is 5 x 5 bilateral upper and lower extremity SKIN: No rashes. Objective - Vital Signs Vital signs: Vital Signs Temp 97.6 F 04/13/23 06:45 Pulse 61 04/13/23 06:45 Resp 16 04/13/23 06:45 BP 144/70 04/13/23 06:45 Pulse Ox 93 L 04/13/23 09:53 FiO2 Intake & Output 04/12/23 04/13/23 04/13/23 18:59 06:59 18:59 Other: Voiding Method Toilet Toilet # Voids 1 2 - Labs CBC & Chem 7: 04/13/23 05:59 04/13/23 05:59 Labs: Abnormal Lab Results - Last 24 Hours (Table) 04/12/23 04/12/23 04/13/23 Range/Units 17:32 20:33 05:59 RBC 4.23 L (4.40-5.60) X 10*6/uL Hgb 11.1 L (13.0-17.0) g/dL Hct 33.1 L (39.6-50.0) % MCV 78.3 L (80.0-97.0) FL MCH 26.2 L (27.0-32.0) pg RDW 15.2 H (11.5-14.5) % Lymphocytes # 0.65 L (0.90-5.00) X 10*3/uL Eosinophils # 0 L (0.04-0.35) X 10*3/uL Sodium (135-145) mmol/L BUN/Creatinine Ratio (12.00-20.00) Ratio Glucose (70-110) mg/dL POC Glucose (mg/dL) 225 H 269 H (70-110) mg/dL C-Reactive Protein (0.00-0.80) mg/dL Total Protein (6.2-8.2) g/dL Albumin (3.8-4.9) g/dL 04/13/23 04/13/23 04/13/23 Range/Units 05:59 06:02 08:21 RBC (4.40-5.60) X 10*6/uL Hgb (13.0-17.0) g/dL Hct (39.6-50.0) % MCV (80.0-97.0) FL MCH (27.0-32.0) pg RDW (11.5-14.5) % Lymphocytes # (0.90-5.00) X 10*3/uL Eosinophils # (0.04-0.35) X 10*3/uL Sodium 133 L (135-145) mmol/L BUN/Creatinine Ratio 24.57 H (12.00-20.00) Ratio Glucose 211 H (70-110) mg/dL POC Glucose (mg/dL) 210 H 186 H (70-110) mg/dL C-Reactive Protein 7.90 H (0.00-0.80) mg/dL Total Protein 5.6 L (6.2-8.2) g/dL Albumin 3.7 L (3.8-4.9) g/dL 04/13/23 Range/Units 11:47 RBC (4.40-5.60) X 10*6/uL Hgb (13.0-17.0) g/dL Hct (39.6-50.0) % MCV (80.0-97.0) FL MCH (27.0-32.0) pg RDW (11.5-14.5) % Lymphocytes # (0.90-5.00) X 10*3/uL Eosinophils # (0.04-0.35) X 10*3/uL Sodium (135-145) mmol/L BUN/Creatinine Ratio (12.00-20.00) Ratio Glucose (70-110) mg/dL POC Glucose (mg/dL) 253 H (70-110) mg/dL C-Reactive Protein (0.00-0.80) mg/dL Total Protein (6.2-8.2) g/dL Albumin (3.8-4.9) g/dL Microbiology - Last 24 Hours (Table) 04/11/23 17:09 Blood Culture Gram Stain - Preliminary Blood 04/11/23 17:09 Blood Culture - Preliminary Blood Assessment and Plan Assessment: Assessment and plan Acute hypoxia with COVID-infection Acute metabolic and infectious encephalopathy Coronary artery disease history of CABG Diabetes mellitus type 2 History of hypertension History of peripheral vascular disease Generalized debility with fall Impaired cognition prior to admission * In regards to acute hypoxia, continue patient on as needed breathing treatment, started on dexamethasone day 2 follow-up on inflammatory markers, chest x-ray reviewed * In regards to acute encephalopathy CT head cervical spine negative neurology consulted , EEG within normal limits, MRI brain ordered * In regards to history of coronary artery disease, continue medical management including aspirin Lipitor Plavix * In regards to history of diabetes mellitus Accu-Cheks ACHS continue patient on correctional insulin, continue metformin glipizide * Will need physical therapy occupational therapy evaluation * CODE STATUS is full code
[2023-04-13 17:29] LABS: Glucose,Whole Blood 317 mg/dL (70-110)
[2023-04-13 20:16] LABS: Glucose,Whole Blood 345 mg/dL (70-110)
[2023-04-14 06:24] LABS: Glucose,Whole Blood 201 mg/dL (70-110)
--- NOTE | 2023-04-14 08:31 | P.PN ---
Subjective Progress Note Date: 04/14/23 Principal diagnosis: Shortness of breath. 73-year-old male seen in the emergency room, on April 11, for a fall, and altered mental status. We were consulted for shortness of breath/hypoxemia. The patient presented to the emergency department, and apparently was found to be confused at home, and for that reason, EMS was called, and brought him into the hospital for evaluation. He apparently was initially seemed to have weakness, to the left side of his body. According to EMS, he was confused. For that reason, he was admitted. We were consulted, because of apparent shortness of breath. We interviewed the patient today, he denies being short of breath. He states he did have a cough. He denies any phlegm production. The patient did test positive for coronavirus. He did smoke for about 20 years, many years back. He denies a history of any lung issues. He states he has never been diagnosed with COPD, asthma, etc. Currently, he is on 3 L, but he was not we aring it when we walked into the room. He apparently has a history of diabetes, GERD, hyperlipidemia, hypertension, osteoarthritis, hypothyroidism, throat cancer, and previous bypass surgery. His primary care physician is Dr. Malvin Kee. Laboratory data includes a white count of 6.8, hemoglobin 12.2, hematocrit 35.7, platelet count 135,000. Coagulation studies were normal. Sodium 131, potassium 4.3, chloride 99, CO2 21, BUN 13, creatinine 0.67. Glucose is 233. The urine has 2+ protein and 1+ glucose. There is trace blood. Rare bacteria. He did test positive for coronavirus. A head and cervical spine CT showed no acute intracranial process, and no evidence of cervical spine fracture. Chest x-ray, as interpreted by radiology, was normal. I believe it to be normal as well. The patient is seen today April 13, 2023 in follow-up on the regular medical floor. He is currently resting comfortably in bed. Awake and alert in no acute distress. He is maintaining O2 saturations in the 90s on room air. No IV fluids. He denies any shortness of breath, cough or congestion. He did test positive for COVID-19 without evidence of COVID-19 pneumonia. Cultures revealed no growth. White count 5.6. Hemoglobin 11.1. Platelets 175. Glucose 210. He remains on vitamin supplements. Continued on Decadron. Lovenox for DVT prophylaxis. Progress note dated April 14, 2023. This is a 73-year-old male who is seen again in room 623. He is currently on room air. Saturations are 95%. He is getting saline at 20 cc an hour. Again, when asked, about shortness of breath, patient denies shortness of breath, cough, or congestion. He did test positive for coronavirus, without evidence of coronavirus associated pneumonia. Clinically, he appears very stable. No new labs today other than a glucose of 201. Blood cultures are negative. No recent chest x-rays to report. Objective - Vital Signs Vital signs: Vital Signs Temp 98.1 F 04/14/23 06:45 Pulse 54 L 04/14/23 06:45 Resp 16 04/14/23 06:45 BP 181/77 04/14/23 06:45 Pulse Ox 99 04/14/23 06:45 FiO2 Intake & Output 04/13/23 04/14/23 04/14/23 18:59 06:59 18:59 Other: Voiding Method Toilet # Voids 3 1 # Bowel Movements 1 - Exam No acute distress, oriented 3. Currently on room air. Saturations are 98 %. HEENT examination is grossly unremarkable. Mucous membranes are moist. No oral lesions. Neck supple. Full range of motion. No adenopathy thyromegaly or neck vein distention. Cardiovascular examination reveals regular rhythm rate. S1-S2 normal. No S3 or S4. No discernible murmur noted. Heart rate 54 bpm. Lungs reveal clear breath sounds. Breath sounds are equal bilaterally. No adventitious lung sounds including wheezes rhonchi or crackles. Abdomen soft bowel sounds are heard. No masses or tenderness. Extremities are intact. No cyanosis clubbing or edema. Skin is without rash or lesion. Neurologic examination is brief but nonfocal. - Labs CBC & Chem 7: 04/13/23 05:59 04/13/23 05:59 Labs: Abnormal Lab Results - Last 24 Hours (Table) 04/13/23 04/13/23 04/13/23 Range/Units 05:59 05:59 05:59 RBC 4.23 L (4.40-5.60) X 10*6/uL Hgb 11.1 L (13.0-17.0) g/dL Hct 33.1 L (39.6-50.0) % MCV 78.3 L (80.0-97.0) FL MCH 26.2 L (27.0-32.0) pg RDW 15.2 H (11.5-14.5) % Lymphocytes # 0.65 L (0.90-5.00) X 10*3/uL Eosinophils # 0 L (0.04-0.35) X 10*3/uL Sodium 133 L (135-145) mmol/L BUN/Creatinine Ratio 24.57 H (12.00-20.00) Ratio Glucose 211 H (70-110) mg/dL POC Glucose (mg/dL) (70-110) mg/dL Hemoglobin A1c 8.1 H (<=6.0) % C-Reactive Protein 7.90 H (0.00-0.80) mg/dL Total Protein 5.6 L (6.2-8.2) g/dL Albumin 3.7 L (3.8-4.9) g/dL 04/13/23 04/13/23 04/13/23 Range/Units 11:47 17:27 20:14 RBC (4.40-5.60) X 10*6/uL Hgb (13.0-17.0) g/dL Hct (39.6-50.0) % MCV (80.0-97.0) FL MCH (27.0-32.0) pg RDW (11.5-14.5) % Lymphocytes # (0.90-5.00) X 10*3/uL Eosinophils # (0.04-0.35) X 10*3/uL Sodium (135-145) mmol/L BUN/Creatinine Ratio (12.00-20.00) Ratio Glucose (70-110) mg/dL POC Glucose (mg/dL) 253 H 317 H 345 H (70-110) mg/dL Hemoglobin A1c (<=6.0) % C-Reactive Protein (0.00-0.80) mg/dL Total Protein (6.2-8.2) g/dL Albumin (3.8-4.9) g/dL 04/14/23 Range/Units 06:23 RBC (4.40-5.60) X 10*6/uL Hgb (13.0-17.0) g/dL Hct (39.6-50.0) % MCV (80.0-97.0) FL MCH (27.0-32.0) pg RDW (11.5-14.5) % Lymphocytes # (0.90-5.00) X 10*3/uL Eosinophils # (0.04-0.35) X 10*3/uL Sodium (135-145) mmol/L BUN/Creatinine Ratio (12.00-20.00) Ratio Glucose (70-110) mg/dL POC Glucose (mg/dL) 201 H (70-110) mg/dL Hemoglobin A1c (<=6.0) % C-Reactive Protein (0.00-0.80) mg/dL Total Protein (6.2-8.2) g/dL Albumin (3.8-4.9) g/dL Microbiology - Last 24 Hours (Table) 04/11/23 17:09 Blood Culture - Preliminary Blood 04/11/23 17:09 Blood Culture Gram Stain - Preliminary Blood Assessment and Plan Assessment: Coronavirus infection, without obvious coronavirus associated pneumonia. Cough, may relate to viral tracheobronchitis. Acute mental status changes, currently being evaluated by the primary service, and neurology. History of throat cancer. History of diabetes. History of hypertension. History of hyperlipidemia. History of hypothyroidism. History of osteoarthritis. Prior history of bypass grafting. History of stenting of the carotid artery. Prior history of tobacco use. Plan: Plan dated April 12, 2023. Room air saturations are being documented at 95 to 96%. The patient denies being short of breath. He does have occasional cough. He did test positive for coronavirus. His chest x-ray is normal. Brain CT and cervical spine CT is negative. The patient did smoke for about 20 years, many years ago. He denies a prior history of any lung disease. We will continue to follow. If his room air saturations are above 93%, oxygen can be discontinued. No additional recommendations at this time. Labs, x-rays, and medications are all reviewed. Plan dated April 14, 2023. The patient continues to be followed by neurology. The patient denies all pulmonary complaints. Room air saturation 98%. The patient is currently on saline at 20 cc an hour. Labs, x-rays, and medications are reviewed. We will continue to follow make recommendations along the way. The patient is thought to have coronavirus infection, without coronavirus associated pneumonia. Time with Patient: Less than 30
[2023-04-14] MEDS: INSULIN ASPART (NovoLOG) 100 UNIT/ML VIAL SQ ONE (09:22)
--- NOTE | 2023-04-14 09:39 | P.CONS ---
History of Present Illness - Reason for Consult Consult date: 04/13/23 Positive blood culture Requesting physician: Rehana Cerrato - Chief Complaint Syncope and fall x few days - History of Present Illness Patient is a 73-year-old male with a past medical history significant for hypertension hyperlipidemia diabetes mellitus history of throat cancer osteoarthritis presenting to the hospital 2 days ago after the patient was found standing in the bathroom at the sink but little bit confused and subsequently patient has fallen down patient denies having any fever or any chills prior to that episode of fall however on presentation to the hospital he did have a fever of 101.7 F patient was not tachycardic hypotensive did have mild hypoxemia initially however currently the patient is on room air satting around 95% patient workup including a normal white count kidney function was normal liver enzymes are normal urine was negative he tested positive for COVID-19 RSV influenza was negative blood cultures came back positive with gram-positive cocci probably this infectious disease consultation patient did have a chest x-ray no acute cardiopulmonary disease process patient currently denies having any headache or URI symptoms denies any chest pain shortness of breath occasional cough no nausea no vomiting no abdominal pain and no diarrhea Review of Systems Positive point and negatives has been mentioned in the HPI, complete review of systems was performed and all other systems are negative Past Medical History Past Medical History: Cancer, Diabetes Mellitus, Eye Disorder, GERD/Reflux, Hyperlipidemia, Hypertension, Osteoarthritis (OA), Thyroid Disorder, Vascular Disorder Additional Past Medical History / Comment(s): Hx Throat Cancer, 2006 with radiation and removal. Seasonal allergies. 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 SEE DR NOEL'S HISTORY AND PHYSICAL FOR CARDIAC HISTORY, STROKE RIGHT EYE , History of Any Multi-Drug Resistant Organisms: MRSA Year Discovered:: 08/09/22 MDRO Source:: Groin Past Surgical History: Coronary Bypass/CABG Additional Past Surgical History / Comment(s): 2 stents carotid artery, "catheterization bilateral legs", bilateral cataracts with lens implants, CABG about 5 years ago, COLONOSCOPY Past Anesthesia/Blood Transfusion Reactions: No Reported Reaction Past Psychological History: PTSD Smoking Status: Former smoker Past Alcohol Use History: None Reported Additional Past Alcohol Use History / Comment(s): Smoked from 10th grade though mid 20s, quit for 10 years, resumed at age 28, 1ppd, quit again in 2006. Past Drug Use History: None Reported - Past Family History Mother Family Medical History: No Reported History Medications and Allergies Home Medications Medication Instructions Recorded Confirmed Type Clopidogrel Bisulfate [Plavix] 75 mg PO DAILY 01/14/17 04/11/23 History Esomeprazole Magnesium [NexIUM] 40 mg PO DAILY 01/14/17 04/11/23 History glyBURIDE/METFORMIN HCL 2 tab PO AC-BID 01/14/17 04/11/23 History [Glucovance 5-500 mg] Aspirin [Adult Low Dose Aspirin EC] 81 mg PO DAILY 09/15/18 04/11/23 History Ascorbic Acid [Vitamin C] 250 mg PO BID 06/08/21 04/11/23 History Atorvastatin Calcium [Lipitor] 40 mg PO HS 06/08/21 04/11/23 History Fluticasone Nasal [place] [Flonase 1 spray EA NOSTRIL BID 06/08/21 04/11/23 History Nasal [place]] Gabapentin [Neurontin] 2,400 mg PO HS 06/08/21 04/11/23 History Fexofenadine HCl 180 mg PO DAILY 08/30/21 04/11/23 History Insulin Aspart [NovoLOG Flexpen] See Protocol SQ ACHS 08/30/21 04/11/23 History Clobetasol Propionate [Temovate 1 applic TOPICAL BID 04/11/23 04/11/23 History 0.05% Oint] Gabapentin 800 mg PO BID@0700,1600 04/11/23 04/11/23 History Levothyroxine Sodium [Synthroid] 125 mcg PO DAILY 04/11/23 04/11/23 History Metoprolol Tartrate [Lopressor] 50 mg PO BID 04/11/23 04/11/23 History Nitroglycerin Sl Tabs [Nitrostat] 0.4 mg SUBLINGUAL Q5M PRN 04/11/23 04/11/23 History Allergies Allergy/AdvReac Type Severity Reaction Status Date / Time No Known Allergies Allergy Verified 08/09/22 10:27 Physical Exam Vitals: Vital Signs Temp Pulse Resp BP BP Pulse Ox 04/13/23 09:53 93 L 04/13/23 06:45 97.6 F 61 16 144/70 92 L 04/13/23 02:45 97.9 F 60 16 110/64 96 04/12/23 20:07 97.9 F 70 16 170/72 96 04/12/23 14:45 97.4 F L 64 14 160/78 95 04/12/23 14:00 14 04/12/23 12:45 97.7 F 68 18 148/84 95 Intake and Output 04/12/23 04/13/23 04/13/23 22:59 06:59 14:59 Other: Voiding Method Toilet Toilet # Voids 1 2 GENERAL DESCRIPTION: Elderly male lying in bed, no distress. No tachypnea or accessory muscle of respiration use. HEENT: Shows Pallor , no scleral icterus. Oral mucous membrane is dry. No pharyngeal erythema or thrush NECK: Trachea central, no thyromegaly. LUNGS: Unlabored breathing. Clear to auscultation anteriorly. No wheeze or crackle. HEART: S1, S2, regular rate and rhythm. No loud murmur ABDOMEN: Soft, no tenderness , EXTREMITIES: No edema of feet. SKIN: No rash, no masses palpable. NEUROLOGICAL: The patient is awake, alert, oriented x3, mood and affect normal. Results CBC & Chem 7: 04/14/23 05:27 04/15/23 10:54 Labs: Abnormal Lab Results - Last 24 Hours (Table) 04/12/23 04/12/23 04/12/23 Range/Units 12:44 17:32 20:33 RBC (4.40-5.60) X 10*6/uL Hgb (13.0-17.0) g/dL Hct (39.6-50.0) % MCV (80.0-97.0) FL MCH (27.0-32.0) pg RDW (11.5-14.5) % Lymphocytes # (0.90-5.00) X 10*3/uL Eosinophils # (0.04-0.35) X 10*3/uL Sodium (135-145) mmol/L BUN/Creatinine Ratio (12.00-20.00) Ratio Glucose (70-110) mg/dL POC Glucose (mg/dL) 233 H 225 H 269 H (70-110) mg/dL Total Protein (6.2-8.2) g/dL Albumin (3.8-4.9) g/dL 04/13/23 04/13/23 04/13/23 Range/Units 05:59 05:59 06:02 RBC 4.23 L (4.40-5.60) X 10*6/uL Hgb 11.1 L (13.0-17.0) g/dL Hct 33.1 L (39.6-50.0) % MCV 78.3 L (80.0-97.0) FL MCH 26.2 L (27.0-32.0) pg RDW 15.2 H (11.5-14.5) % Lymphocytes # 0.65 L (0.90-5.00) X 10*3/uL Eosinophils # 0 L (0.04-0.35) X 10*3/uL Sodium 133 L (135-145) mmol/L BUN/Creatinine Ratio 24.57 H (12.00-20.00) Ratio Glucose 211 H (70-110) mg/dL POC Glucose (mg/dL) 210 H (70-110) mg/dL Total Protein 5.6 L (6.2-8.2) g/dL Albumin 3.7 L (3.8-4.9) g/dL 04/13/23 Range/Units 08:21 RBC (4.40-5.60) X 10*6/uL Hgb (13.0-17.0) g/dL Hct (39.6-50.0) % MCV (80.0-97.0) FL MCH (27.0-32.0) pg RDW (11.5-14.5) % Lymphocytes # (0.90-5.00) X 10*3/uL Eosinophils # (0.04-0.35) X 10*3/uL Sodium (135-145) mmol/L BUN/Creatinine Ratio (12.00-20.00) Ratio Glucose (70-110) mg/dL POC Glucose (mg/dL) 186 H (70-110) mg/dL Total Protein (6.2-8.2) g/dL Albumin (3.8-4.9) g/dL Microbiology - Last 24 Hours (Table) 04/11/23 17:09 Blood Culture - Preliminary Blood 04/11/23 17:09 Blood Culture Gram Stain - Preliminary Blood Assessment and Plan (1) Positive blood culture Status: Acute Code(s): R78.81 - BACTEREMIA SNOMED Code(s): 990901500 Plan: 1patient with a positive blood culture with staph species possible staph epi and likely skin contamination only 1 set more likely representing skin contamination as the patient do not have any clinical disease to go along with it 2-patient did have weakness fall and tested positive for COVID-19 however chest x-ray was negative for any acute infiltrate treatment is mostly supportive 3-blood cultures repeated document clearance of bacteremia Question concern answered We will follow on clinical condition and cultures to further adjust medication if needed Thank you for this consultation we will follow the patient along with you Dictation was produced using [employer] dictation software. please excuse any grammatical, word or spelling errors. Time with Patient: Greater than 30
[2023-04-14 10:23] LABS: ALT 28 U/L (10-49); AST 31 U/L (14-35); Albumin 3.8 g/dL (3.8-4.9); Alkaline Phosphatase 58 U/L (41-126); Blood Urea Nitrogen 19.6 mg/dL (9.0-27.0); Carbon Dioxide 20.6 mmol/L (21.6-31.8); Chloride 99 mmol/L (96-109); Glucose 209 mg/dL (70-110); Potassium 4.4 mmol/L (3.5-5.5); Sodium 135 mmol/L (135-145); Total Bilirubin 0.3 mg/dL (0.3-1.2); Total Protein 5.8 g/dL (6.2-8.2)
[2023-04-14] MEDS: CYANOCOBALAMIN 1,000 MCG/ML 1 ML VIAL IM SCH (10:34)
[2023-04-14 11:10] LABS: Basophils # (A) 0.01 X 10*3/uL (0.00-0.10); Basophils % (A) 0.2 %; Eosinophils # (A) 0 X 10*3/uL (0.04-0.35); Eosinophils % (A) 0 %; HCT 33.8 % (39.6-50.0); HGB 11.3 g/dL (13.0-17.0); Lymphocytes # (A) 0.68 X 10*3/uL (0.90-5.00); Lymphocytes % (A) 12.1 %; MCH 26.2 pg (27.0-32.0); MCHC 33.4 g/dL (32.0-37.0); MCV 78.4 FL (80.0-97.0); Mean Platelet Volume 10.8 FL (9.5-12.2); Monocytes # (A) 0.71 X 10*3/uL (0.20-1.00); Monocytes % (A) 12.7 %; NRBC Per 100 WBC 0 X 10*3/uL (0.00-0.01); Neutrophils # (A) 4.18 X 10*3/uL (1.80-7.70); Neutrophils % (A) 74.6 %; Platelet Count 199 X 10*3/uL (140-440); RBC 4.31 X 10*6/uL (4.40-5.60)
[2023-04-14] MEDS: CYANOCOBALAMIN 500 MCG TAB PO SCH (11:25)
[2023-04-14 11:38] LABS: Glucose,Whole Blood 174 mg/dL (70-110)
[2023-04-14] MEDS: ACETAMINOPHEN TAB 325 MG TAB PO PRN (12:15)
--- NOTE | 2023-04-14 12:48 | P.PN ---
Subjective Progress Note Date: 04/14/23 * 73-year-old patient with past medical history significant for coronary artery disease history of PCI, history of CABG, history of diabetes mellitus, hyperlipidemia osteoarthritis, peripheral vascular disease, hypertension, history of throat cancer s/p radiation, presents to the emergency department with complaints of generalized weakness, confusion. Apparently per upon presentation patient mentioned that he had a fall at home and had complained of generalized weakness.. At home EMS was called when they arrived they noted patient had left-sided weakness and left-sided pronator drift. Patient was also noted to be confused. Per patient has been having issues with memory lately and has been worked up outpatient for dementia. * Workup initiated ER included EKG which showed sinus rhythm with a heart rate of 80, no significant ST segment changes * Patient had a chest x-ray done which was negative for acute cardiopulmonary process * CT head and cervical spine was obtained which was negative for acute intracranial process, nonspecific white matter changes were noted no cervical spine injury moderate degenerative disc disease noted * Review of blood work in ER showed WBC count of 6.8 hemoglobin 12.2 platelet count of 135 * Serum chemistry sodium 131 potassium 4.3, dioxide 21 BUN 13 creatinine 0.67 glucose 166 lactate of 1.4 * Urinalysis obtained showed trace amount of blood urine bacteria was rare * Patient tested positive for COVID, negative for RSV and influenza * Patient was placed on 2 L of oxygen, and admitted to medical floor for workup to rule out CVA with neurology consultation * 04/13/2023: Patient seen and evaluated bedside, mood is better today, patient stable through the night. at bedside as well. CRP elevated at 7.9, on room air, continue dexamethasone * 04/14/2023: patient seen and evaluated bedside. Noted to have elevated blood glucose, follow-up CRP ordered the patient remains on room air will discontinue dexamethasone. Continue to monitor blood glucose level. CBC and basic metabolic panel reviewed REVIEW OF SYSTEMS: Generalized weakness, confusion, fall IMPROVED CONSTITUTIONAL: No fever, no malaise, no fatigue. HEENT: No recent visual problems or hearing problems. Denied any sore throat. CARDIOVASCULAR: No chest pain, orthopnea, PND, no palpitations, no syncope. PULMONARY: No shortness of breath, no cough, no hemoptysis. GASTROINTESTINAL: No diarrhea, no nausea, no vomiting, no abdominal pain. NEUROLOGICAL: No headaches, no weakness, no numbness. HEMATOLOGICAL: Denies any bleeding or petechiae. GENITOURINARY: Denies any burning micturition, frequency, or urgency. MUSCULOSKELETAL/RHEUMATOLOGICAL: Denies any joint pain, swelling, or any muscle pain. ENDOCRINE: Denies any polyuria or polydipsia. PHYSICAL EXAMINATION: GENERAL: The patient is alert and oriented x 3 HEENT: Pupils are round and equally reacting to light. EOMI. CARDIOVASCULAR: S1 and S2 present. No murmurs, rubs, or gallops. PULMONARY: Decreased breath sounds bilaterally ABDOMEN: Soft, nontender, nondistended, normoactive bowel sounds. No palpable organomegaly. MUSCULOSKELETAL: No joint swelling or deformity. EXTREMITIES: No cyanosis, clubbing, or pedal edema. NEUROLOGICAL: Alert and oriented 3 motor strength is 5 x 5 bilateral upper and lower extremity SKIN: No rashes. Objective - Vital Signs Vital signs: Vital Signs Temp 97.4 F L 04/13/23 19:19 Pulse 60 04/13/23 19:19 Resp 16 04/13/23 19:19 BP 171/64 04/13/23 19:19 Pulse Ox 95 04/13/23 19:19 FiO2 Intake & Output 04/13/23 04/13/23 04/14/23 06:59 18:59 06:59 Other: Voiding Method Toilet # Voids 2 3 # Bowel Movements 1 - Labs CBC & Chem 7: 04/14/23 05:27 04/14/23 05:27 Labs: Abnormal Lab Results - Last 24 Hours (Table) 04/13/23 04/13/23 04/13/23 Range/Units 05:59 05:59 06:02 RBC 4.23 L (4.40-5.60) X 10*6/uL Hgb 11.1 L (13.0-17.0) g/dL Hct 33.1 L (39.6-50.0) % MCV 78.3 L (80.0-97.0) FL MCH 26.2 L (27.0-32.0) pg RDW 15.2 H (11.5-14.5) % Lymphocytes # 0.65 L (0.90-5.00) X 10*3/uL Eosinophils # 0 L (0.04-0.35) X 10*3/uL Sodium 133 L (135-145) mmol/L BUN/Creatinine Ratio 24.57 H (12.00-20.00) Ratio Glucose 211 H (70-110) mg/dL POC Glucose (mg/dL) 210 H (70-110) mg/dL C-Reactive Protein 7.90 H (0.00-0.80) mg/dL Total Protein 5.6 L (6.2-8.2) g/dL Albumin 3.7 L (3.8-4.9) g/dL 04/13/23 04/13/23 04/13/23 Range/Units 08:21 11:47 17:27 RBC (4.40-5.60) X 10*6/uL Hgb (13.0-17.0) g/dL Hct (39.6-50.0) % MCV (80.0-97.0) FL MCH (27.0-32.0) pg RDW (11.5-14.5) % Lymphocytes # (0.90-5.00) X 10*3/uL Eosinophils # (0.04-0.35) X 10*3/uL Sodium (135-145) mmol/L BUN/Creatinine Ratio (12.00-20.00) Ratio Glucose (70-110) mg/dL POC Glucose (mg/dL) 186 H 253 H 317 H (70-110) mg/dL C-Reactive Protein (0.00-0.80) mg/dL Total Protein (6.2-8.2) g/dL Albumin (3.8-4.9) g/dL 04/13/23 Range/Units 20:14 RBC (4.40-5.60) X 10*6/uL Hgb (13.0-17.0) g/dL Hct (39.6-50.0) % MCV (80.0-97.0) FL MCH (27.0-32.0) pg RDW (11.5-14.5) % Lymphocytes # (0.90-5.00) X 10*3/uL Eosinophils # (0.04-0.35) X 10*3/uL Sodium (135-145) mmol/L BUN/Creatinine Ratio (12.00-20.00) Ratio Glucose (70-110) mg/dL POC Glucose (mg/dL) 345 H (70-110) mg/dL C-Reactive Protein (0.00-0.80) mg/dL Total Protein (6.2-8.2) g/dL Albumin (3.8-4.9) g/dL Microbiology - Last 24 Hours (Table) 04/11/23 17:09 Blood Culture Gram Stain - Preliminary Blood 04/11/23 17:09 Blood Culture - Preliminary Blood Assessment and Plan Assessment: Assessment and plan Acute hypoxia with COVID-infection resolved Acute metabolic and infectious encephalopathy resolved left upper extremity weakness rule out CVA Coronary artery disease history of CABG Diabetes mellitus type 2 History of hypertension History of peripheral vascular disease Generalized debility with fall Impaired cognition prior to admission * In regards to acute hypoxia, continue patient on as needed breathing treatment, was started on dexamethasone discontinued, since patient remained on room air follow-up on inflammatory markers, chest x-ray reviewed * In regards to acute encephalopathy CT head cervical spine negative neurology c onsulted , EEG within normal limits, MRI brain ordered * In regards to history of coronary artery disease, continue medical management including aspirin Lipitor Plavix * In regards to history of diabetes mellitus Accu-Cheks ACHS continue patient on correctional insulin, continue metformin glipizide * Will need physical therapy occupational therapy evaluation * CODE STATUS is full code Time with Patient: Greater than 30
--- NOTE | 2023-04-14 15:21 | P.PN ---
Subjective Progress Note Date: 04/14/23 Principal diagnosis: Reason for follow-up is positive blood culture and COVID Patient is a 73-year-old male with a past medical history significant for hypertension hyperlipidemia diabetes mellitus history of throat cancer osteoarthritis presenting to the hospital after the patient did have a fall and noticed to be confused patient was febrile on presentation to the hospital and he tested positive for COVID-19 chest x-ray was negative subsequent blood cultures came back positive with gram-positive cocci prompting this infectious disease consultation. On today's evaluation that is 04/14/2023, the patient remains to be afebrile, patient is breathing comfortably on room air and no need for supplemental oxygen, the patient denies chest pain shortness of breath, did have occasional dry cough, patient denies abdominal pain and no nausea vomiting or diarrhea. Patient white count is 5.60, creatinine 0.8 liver isms are normal blood culture with coagulase-negative staph Objective - Vital Signs Vital signs: Vital Signs Temp 98.1 F 04/14/23 06:45 Pulse 54 L 04/14/23 06:45 Resp 16 04/14/23 06:45 BP 181/77 04/14/23 06:45 Pulse Ox 99 04/14/23 06:45 FiO2 Intake & Output 04/13/23 04/14/23 04/14/23 18:59 06:59 18:59 Other: Voiding Method Toilet # Voids 3 1 # Bowel Movements 1 - Exam GENERAL DESCRIPTION: An elderly male lying in bed in no distress RESPIRATORY SYSTEM: Unlabored breathing , decreased breath sounds at bases HEART: S1 S2 regular rate and rhythm , ABDOMEN: Soft , no tenderness EXTREMITIES: No edema feet - Labs CBC & Chem 7: 04/14/23 05:27 04/14/23 05:27 Labs: Abnormal Lab Results - Last 24 Hours (Table) 04/13/23 04/13/23 04/13/23 Range/Units 05:59 17:27 20:14 RBC (4.40-5.60) X 10*6/uL Hgb (13.0-17.0) g/dL Hct (39.6-50.0) % MCV (80.0-97.0) FL MCH (27.0-32.0) pg RDW (11.5-14.5) % Lymphocytes # (0.90-5.00) X 10*3/uL Eosinophils # (0.04-0.35) X 10*3/uL Carbon Dioxide (21.6-31.8) mmol/L Anion Gap (4.00-12.00) mmol/L BUN/Creatinine Ratio (12.00-20.00) Ratio Glucose (70-110) mg/dL POC Glucose (mg/dL) 317 H 345 H (70-110) mg/dL Hemoglobin A1c 8.1 H (<=6.0) % C-Reactive Protein (0.00-0.80) mg/dL Total Protein (6.2-8.2) g/dL 04/14/23 04/14/23 04/14/23 Range/Units 05:27 05:27 06:23 RBC 4.31 L (4.40-5.60) X 10*6/uL Hgb 11.3 L (13.0-17.0) g/dL Hct 33.8 L (39.6-50.0) % MCV 78.4 L (80.0-97.0) FL MCH 26.2 L (27.0-32.0) pg RDW 15.0 H (11.5-14.5) % Lymphocytes # 0.68 L (0.90-5.00) X 10*3/uL Eosinophils # 0 L (0.04-0.35) X 10*3/uL Carbon Dioxide 20.6 L (21.6-31.8) mmol/L Anion Gap 15.40 H (4.00-12.00) mmol/L BUN/Creatinine Ratio 24.50 H (12.00-20.00) Ratio Glucose 209 H (70-110) mg/dL POC Glucose (mg/dL) 201 H (70-110) mg/dL Hemoglobin A1c (<=6.0) % C-Reactive Protein 2.60 H (0.00-0.80) mg/dL Total Protein 5.8 L (6.2-8.2) g/dL 04/14/23 Range/Units 11:35 RBC (4.40-5.60) X 10*6/uL Hgb (13.0-17.0) g/dL Hct (39.6-50.0) % MCV (80.0-97.0) FL MCH (27.0-32.0) pg RDW (11.5-14.5) % Lymphocytes # (0.90-5.00) X 10*3/uL Eosinophils # (0.04-0.35) X 10*3/uL Carbon Dioxide (21.6-31.8) mmol/L Anion Gap (4.00-12.00) mmol/L BUN/Creatinine Ratio (12.00-20.00) Ratio Glucose (70-110) mg/dL POC Glucose (mg/dL) 174 H (70-110) mg/dL Hemoglobin A1c (<=6.0) % C-Reactive Protein (0.00-0.80) mg/dL Total Protein (6.2-8.2) g/dL Microbiology - Last 24 Hours (Table) 04/11/23 17:09 Blood Culture Gram Stain - Preliminary Blood Blood Culture - Preliminary Coagulase Negative Staph 04/11/23 17:09 Blood Culture - Preliminary Blood Assessment and Plan (1) Positive blood culture Current Visit: Yes Status: Acute Code(s): R78.81 - BACTEREMIA SNOMED Code(s): 892904171 (2) COVID-19 Current Visit: Yes Status: Acute Code(s): U07.1 - COVID-19 SNOMED Code(s): 080748740 Plan: 1patient with a positive blood culture with staph species possible staph epi and likely skin contamination only 1 set more likely representing skin contamination as the patient do not have any clinical disease to go along with it 2-patient did have weakness fall and tested positive for COVID-19 however chest x-ray was negative for any acute infiltrate treatment is mostly supportive 3-blood cultures finalized as coagulase-negative staph more likely contamination repeat blood cultures currently pending no need for vancomycin patient will monitor closely off antibiotic therapy Dictation was produced using [employer] dictation software. please excuse any grammatical, word or spelling errors. Time with Patient: Less than 30
[2023-04-14 17:11] LABS: Glucose,Whole Blood 259 mg/dL (70-110)
[2023-04-14 21:32] LABS: Glucose,Whole Blood 169 mg/dL (70-110)
[2023-04-15 05:43] LABS: Glucose,Whole Blood 117 mg/dL (70-110)
[2023-04-15] MEDS: ACETAMINOPHEN TAB 500 MG TAB PO STA (09:42)
[2023-04-15 11:43] LABS: Anion Gap 12 mmol/L; Blood Urea Nitrogen 22 mg/dL (9-20); Calcium 8.9 mg/dL (8.4-10.2); Carbon Dioxide 23 mmol/L (22-30); Chloride 99 mmol/L (98-107); Glucose 205 mg/dL (74-99); Potassium 4.2 mmol/L (3.5-5.1); Sodium 134 mmol/L (137-145)
[2023-04-15 11:58] LABS: African American GFR (CKD) >90 (>60 ml/min/1.73 sqM); Non-African American GFR(CKD) 88 (>60 ml/min/1.73 sqM)
[2023-04-15 13:41] LABS: Glucose,Whole Blood 316 mg/dL (70-110)
[2023-04-15 15:37] VITALS: BP 178/69; PULSE 55; RESP 18; TEMP 97.4
--- NOTE | 2023-04-15 16:04 | P.PN ---
Subjective Progress Note Date: 04/15/23 On today's evaluation of 04/15/2023, the patient is being seen for a follow-up. The patient presented to the hospital altered mentation and the fall and we were consulted on this patient regarding shortness of breath. The patient was apparently confused at home. The patient went initially seem to have some left- sided weakness. He was admitted to the hospital. Further workup is in progress. Patient is going to undergo an MRI of the brain today. Patient also tested positive for COVID-19. The patient is known to have chronic medical problems including history of throat cancer, diabetes mellitus, hypertension hyperlipidemia and hypothyroidism and he is known to have coronary artery disease with previous bypass surgery. He has undergone also previous stenting of theCarotid artery. In terms of his labs, the patient's sodium levels at 134 with a potassium level of 4.2,. Is a 22 with a creatinine of 0.8. White cell count of 5.6 with a hemoglobin of 11.3. The patient was also seen by infectious disease. The patient is currently afebrile. The patient is comfortable on room air oxygen. No need for oxygen supplementation. Cultures have been negative and the patient does not have any significant leukocytosis. Note that there was 1 blood culture turned out to be positive for coagulase-negative staph, likely contaminant. Objective - Vital Signs Vital signs: Vital Signs Temp 97.6 F 04/15/23 08:59 Pulse 65 04/15/23 09:10 Resp 16 04/15/23 08:59 BP 152/77 04/15/23 09:10 Pulse Ox 96 04/15/23 08:59 FiO2 Intake & Output 04/14/23 04/15/23 04/15/23 18:59 06:59 18:59 Other: Voiding Method Toilet # Voids 4 1 # Bowel Movements 0 - Exam No acute distress, oriented 3. Currently on room air. Saturations are 98 %. HEENT examination is grossly unremarkable. Mucous membranes are moist. No oral lesions. Neck supple. Full range of motion. No adenopathy thyromegaly or neck vein distention. Cardiovascular examination reveals regular rhythm rate. S1-S2 normal. No S3 or S4. No discernible murmur noted. Heart rate 54 bpm. Lungs reveal clear breath sounds. Breath sounds are equal bilaterally. No adventitious lung sounds including wheezes rhonchi or crackles. Abdomen soft bowel sounds are heard. No masses or tenderness. Extremities are intact. No cyanosis clubbing or edema. Skin is without rash or lesion. Neurologic examination is brief but nonfocal. - Labs CBC & Chem 7: 04/14/23 05:27 04/15/23 10:54 Labs: Abnormal Lab Results - Last 24 Hours (Table) 04/14/23 04/14/23 04/15/23 Range/Units 17:04 21:31 05:42 Sodium (137-145) mmol/L BUN (9-20) mg/dL Glucose (74-99) mg/dL POC Glucose (mg/dL) 259 H 169 H 117 H (70-110) mg/dL 04/15/23 Range/Units 10:54 Sodium 134 L (137-145) mmol/L BUN 22 H (9-20) mg/dL Glucose 205 H (74-99) mg/dL POC Glucose (mg/dL) (70-110) mg/dL Microbiology - Last 24 Hours (Table) 04/11/23 17:09 Blood Culture - Preliminary Blood 04/11/23 17:09 Blood Culture Gram Stain - Preliminary Blood Blood Culture - Preliminary Coagulase Negative Staph Assessment and Plan Plan: Coronavirus infection, without obvious coronavirus associated pneumonia. Cough, may relate to viral tracheobronchitis. The patient is currently not showing any signs of hypoxemia and the patient is currently on room air oxygen. The patient Is covered with Lovenox for DVT prophylaxis. No steroids for now. Acute mental status changes, currently being evaluated by the primary service, and neurology. MRI of the brain to be done today History of throat cancer. History of diabetes. History of hypertension. History of hyperlipidemia. History of hypothyroidism. History of osteoarthritis. Coronary artery disease with prior history of bypass grafting. History of stenting of the carotid artery. Prior history of tobacco use. Plan Agree with the current treatment MRI of the brain today Lovenox for DVT prophylaxis Monitor oxygenation Chest x-ray at time of admission showed no acute cardiopulmonary abnormalities
[2023-04-15 17:04] LABS: Glucose,Whole Blood 203 mg/dL (70-110)
--- NOTE | 2023-04-15 17:32 | MR ---
EXAMINATION TYPE: MR brain/lspine lorena herrera DATE OF EXAM: 04/15/2023 1:23 PM CLINICAL INDICATION:Male, 73 years old with history of left sided weakness; PHH, AMS, left sided weak ness. COMPARISON: 04/11/2023.. TECHNIQUE: Multi planar, multi sequence imaging was performed through the brain including: T1, T2, In version recovery, Diffusion weighted imaging, and gradient echo imaging. No gadolinium was given. TECHNIQUE: Multi planar, multi sequence imaging was performed utilizing: T1-weighted, T2-weighted, a nd turbo inversion recovery imaging of the lumbar spine. IV Contrast: cc . None. FINDINGS: Brain: Generalized cerebral atrophy with proportional dilation of ventricular system. The owusu-white junctions, ventricular system, and cisterns appear unremarkable. Scattered foci of hi gh T2 signal intensity are seen within the periventricular white matter. Midline structures show no a bnormality. Diffusion-weighted imaging shows no evidence of restricted diffusion. The susceptibility weighted images do not reveal any evidence for micro-hemorrhage. The bone marrow signal is within normal limits. Paranasal sinuses and mastoid air cells: Mild scattered paranasal sinus disease. Visualized orbits: Bilateral aphakia. L Spine: Alignment: The lumbar vertebral bodies have preserved heights with grade 1 anterolisthesis of L5 on S 1. Cord: The conus medullaris and the distal spinal cord appear unremarkable with regards to their signa l intensity and morphology. Bones/Discs: No evidence for fracture. There is degeneration changes with osteophyte formation, disc space narrowing, disc desiccation and facet joint arthropathy. Reactive bony edema at the adjoining L 5-S1 endplate and L2-L3 endplates. Few scattered Schmorl's nodes are present. T12-L1: No evidence of significant spinal canal stenosis. Facet joint arthropathy mild bilateral neur al foraminal stenosis. L1-L2: Disc bulge and facet joint arthropathy without significant spinal canal stenosis and mild bila teral neural foraminal stenosis. L2-L3: No evidence of significant spinal canal stenosis. Facet joint arthropathy mild bilateral neura l foraminal stenosis. L3-L4: No evidence of significant spinal canal stenosis. Facet joint arthropathy mild bilateral neura l foraminal stenosis. L4-L5: Left central disc extrusion which is partially evaluated due to slice selection and scan time. Disc extrusion abuts the nerve roots on the left in the spinal canal. The spinal canal is patent. Th e neural foramen are mildly narrowed due to facet joint arthropathy. L5-S1: The disc is rounded posterior morphology without significant spinal canal stenosis. Facet join t arthropathy with severe bilateral neural foraminal stenosis. T11-T12 disc bulge with mild spinal canal stenosis. No neural foramen are moderately narrowed at this level. No significant spinal canal or neural foraminal stenosis in the remainder of the visualized levels. Other findings: None. IMPRESSION: Lumbar spine 1. No definitive evidence of disc herniation or significant spinal canal stenosis. 2. Grade 1 anterolisthesis of L5 on S1 with severe bilateral neural foraminal stenosis. 3. Moderate disc degeneration with associated osteoarthritic changes. 4. L4-L5 left central disc extrusion without significant spinal canal or neural foraminal stenosis th is abuts the nerve roots. Brain 1. No evidence of intracranial mass or acute/subacute infarct. 2. Nonspecific white matter changes, likely secondary to small vessel ischemic disease.
--- NOTE | 2023-04-15 18:44 | P.PN ---
Progress Note - Text Progress Note Date: 04/15/23 Patient initially seen by Dr. Emmett Jacques. Please refer to his note for details. I started service as of this morning. Patient was discharged before patient could be seen. I was signed off to follow on the MRI of the brain and lumbar spine. MRI of the brain showed no CVA. Some small vessel disease. I personally reviewed MRI agree with the findings. MRI of the lumbar spine noted. Patient has degenerative disc disease, with anterolisthesis, L4-L5 left central disc extrusion. Patient will be followed up with orthopedic spine. Hemoglobin A1c 8.1, suggestive of poorly controlled diabetes. Recommend optimize control of diabetes to target A1c <7.0. Patient discharged on aspirin 81 mg, Plavix 75 mg and Lipitor 40 mg.
--- NOTE | 2023-04-19 14:55 | P.PN ---
Subjective Progress Note Date: 04/15/23 Principal diagnosis: Reason for follow-up is positive blood culture and COVID Patient is a 73-year-old male with a past medical history significant for hypertension hyperlipidemia diabetes mellitus history of throat cancer osteoarthritis presenting to the hospital after the patient did have a fall and noticed to be confused patient was febrile on presentation to the hospital and he tested positive for COVID-19 chest x-ray was negative subsequent blood cultures came back positive with gram-positive cocci prompting this infectious disease consultation. On today's evaluation that is 04/15/2023, the patient continues to be afebrile, patient is breathing comfortably on room air, the patient denies chest pain shortness of breath, did have occasional dry cough, patient denies abdominal pain and no nausea vomiting or diarrhea. No new symptoms feeling better Patient white count is 5.60, creatinine 0.80, blood culture with coagulase- negative staph repeat is negative Objective - Vital Signs Vital signs: Vital Signs Temp 97.6 F 04/15/23 08:59 Pulse 65 04/15/23 09:10 Resp 16 04/15/23 08:59 BP 152/77 04/15/23 09:10 Pulse Ox 96 04/15/23 08:59 FiO2 Intake & Output 04/14/23 04/15/23 04/15/23 18:59 06:59 18:59 Other: Voiding Method Toilet # Voids 4 1 # Bowel Movements 0 - Exam GENERAL DESCRIPTION: An elderly male lying in bed in no distress RESPIRATORY SYSTEM: Unlabored breathing , decreased breath sounds at bases HEART: S1 S2 regular rate and rhythm , ABDOMEN: Soft , no tenderness EXTREMITIES: No edema feet - Labs CBC & Chem 7: 04/14/23 05:27 04/15/23 10:54 Labs: Abnormal Lab Results - Last 24 Hours (Table) 04/14/23 04/14/23 04/14/23 Range/Units 05:27 11:35 17:04 RBC 4.31 L (4.40-5.60) X 10*6/uL Hgb 11.3 L (13.0-17.0) g/dL Hct 33.8 L (39.6-50.0) % MCV 78.4 L (80.0-97.0) FL MCH 26.2 L (27.0-32.0) pg RDW 15.0 H (11.5-14.5) % Lymphocytes # 0.68 L (0.90-5.00) X 10*3/uL Eosinophils # 0 L (0.04-0.35) X 10*3/uL POC Glucose (mg/dL) 174 H 259 H (70-110) mg/dL 04/14/23 04/15/23 Range/Units 21:31 05:42 RBC (4.40-5.60) X 10*6/uL Hgb (13.0-17.0) g/dL Hct (39.6-50.0) % MCV (80.0-97.0) FL MCH (27.0-32.0) pg RDW (11.5-14.5) % Lymphocytes # (0.90-5.00) X 10*3/uL Eosinophils # (0.04-0.35) X 10*3/uL POC Glucose (mg/dL) 169 H 117 H (70-110) mg/dL Microbiology - Last 24 Hours (Table) 04/11/23 17:09 Blood Culture - Preliminary Blood 04/11/23 17:09 Blood Culture Gram Stain - Preliminary Blood Blood Culture - Preliminary Coagulase Negative Staph Assessment and Plan (1) Positive blood culture Status: Acute Code(s): R78.81 - BACTEREMIA SNOMED Code(s): 389555294 (2) COVID-19 Status: Acute Code(s): U07.1 - COVID-19 SNOMED Code(s): 792440780 Plan: 1patient with a positive blood culture with staph species possible staph epi and likely skin contamination only 1 set more likely representing skin contamination as the patient do not have any clinical disease to go along with it 2-patient did have weakness fall and tested positive for COVID-19 however chest x-ray was negative for any acute infiltrate treatment is mostly supportive 3-blood cultures finalized as coagulase-negative staph more likely contamination repeat blood cultures repeat negative so far there is no need for any vancomycin on discharge Dictation was produced using [employer] dictation software. please excuse any grammatical, word or spelling errors. Time with Patient: Less than 30
== END 2023-04-15 18:11 | disposition home or self-care (01) | DRG 177 ==
LOC: EC 16:53 → 6NMEDSUR 20:08 → OBSVTOIN 04-15 08:26
PROVIDERS: ADMIT Hospitalist; ATTEND Hospitalist
DX: U07.1 COVID-19 (principal); G93.41 Metabolic encephalopathy; J40 Bronchitis, not specified as acute or chronic; Z87.891 Personal history of nicotine dependence; E11.65 Type 2 diabetes mellitus with hyperglycemia; Z79.4 Long term (current) use of insulin; Z79.84 Long term (current) use of oral hypoglycemic drugs; E78.5 Hyperlipidemia, unspecified; E11.51 Type 2 diabetes mellitus with diabetic peripheral angiopathy without gangrene; F43.10 Post-traumatic stress disorder, unspecified; K21.9 Gastro-esophageal reflux disease without esophagitis; M19.90 Unspecified osteoarthritis, unspecified site; M51.36 Other intervertebral disc degeneration, lumbar region; R53.81 Other malaise; I10 Essential (primary) hypertension; I25.10 Atherosclerotic heart disease of native coronary artery without angina pectoris; R09.02 Hypoxemia; Z86.14 Personal history of Methicillin resistant Staphylococcus aureus infection; Z95.1 Presence of aortocoronary bypass graft; Z95.5 Presence of coronary angioplasty implant and graft; M43.16 Spondylolisthesis, lumbar region; R29.6 Repeated falls; Z79.02 Long term (current) use of antithrombotics/antiplatelets; Z79.82 Long term (current) use of aspirin; Z79.890 Hormone replacement therapy; Z79.899 Other long term (current) drug therapy; Z85.819 Personal history of malignant neoplasm of unspecified site of lip, oral cavity, and pharynx; Z86.73 Personal history of transient ischemic attack (TIA), and cerebral infarction without residual deficits; Z92.3 Personal history of irradiation
CPT/HCPCS: 36415; 70450; 70551; 71046; 72125; 72148; 80048; 80053; 80061; 81001; 82607; 82746; 83036; 83605; 84443; 85025; 85610; 85730; 86140; 87040; 87636; 93005; 94760; 95816; 96360; 99285

== ENCOUNTER → 2023-10-15 | Outpatient (CLI) | payer MEDICARE ==
--- NOTE | 2023-11-07 15:22 | CTL ---
Site ID [facility] Patient Kimani Marie T ID [id number] Age/Gender: 73Y, M Order # N/A Procedure LOW DOSE LUNG CANCER SCREENING Date 10/15/2023 2:17:21 PM EXAMINATION TYPE: CT Low Dose Lung DATE OF EXAM ORDERED: 10/30/2023 HISTORY: Personal history of nicotine dependence, 45 pack-year history, quit smoking 15 years ago. Jeniffer ng cancer screening CT DLP: 125.[address] CTDI: 3.40 mGy Automated exposure control for dose reduction was used. SCREENING VISIT: First screen visit COMPARISON: None, please note PACS Production downtime occurred during the radiologist interpretation of these images with limited priors/reports. TECHNIQUE: Low dose computed tomography scan was performed through the chest at 1 mm thick sections a nd reconstructed images in multiple planes at 1 mm and 5 mm thick sections. Delayed interpretation du e to institutional cyber attack. CT DIAGNOSTIC QUALITY: Satisfactory FINDINGS: Nodules: No clinically significant pulmonary nodules. LUNGS: COPD: Severity: Mild Fibrosis: Severity: None Lymph nodes: None Other findings: None RIGHT PLEURAL SPACE: Effusion: None Calcification: None Thickening: None Pneumothorax: None LEFT PLEURAL SPACE: Effusion: None Calcification: None Thickening: None Pneumothorax: None HEART: Heart Size: Normal size. Post-CABG changes. Coronary Calcification: None Pericardial Effusion: None OTHER FINDINGS: Upper abdomen: Pancreatic fatty infiltration. Bony thorax: No acute processes. Median sternotomy wires. Prominent xiphoid process. Mild multilevel degenerative disc disease. Supraclavicular region: Atrophic thyroid gland versus surgically absent. Other: Mild atherosclerotic calcification of the aorta and its branches. IMPRESSION: 1. No clinically significant pulmonary nodules. 2. Mild superior changes. CT LUNG RAD AND CT CHEST RECOMMENDATION: Lung-Rad 1 Negative: Continue annual screening with LDCT in 12 months. S Modifier (other clinically significant findings): None
== END | disposition home or self-care (01) ==
LOC: RADCTMAIN 14:20
PROVIDERS: ATTEND Family Medicine
DX: Z12.2 Encounter for screening for malignant neoplasm of respiratory organs (principal); F17.210 Nicotine dependence, cigarettes, uncomplicated
CPT/HCPCS: 71271

== ENCOUNTER 2023-10-18 15:37 | Emergency (ER) | payer MEDICARE, OTHER ==
[2023-10-18] MEDS ORDERED: SODIUM CHLORIDE 0.9% 1,000 ML BAG ONE (16:40)
== END 2023-10-18 19:00 | disposition home or self-care (01) ==
LOC: EC 15:37
DX: R79.89 Other specified abnormal findings of blood chemistry (principal)
CPT/HCPCS: 96360; 96361; 99283

== ENCOUNTER → 2024-02-19 | Outpatient (CLI) | payer MEDICARE ==
[2024-02-19 13:57] LABS: African American GFR (CKD) >90 (>60 ml/min/1.73 sqM); Blood Urea Nitrogen 18 mg/dL (9-20); Non-African American GFR(CKD) 85 (>60 ml/min/1.73 sqM)
--- NOTE | 2024-02-20 17:22 | CT ---
EXAMINATION TYPE: CT angio neck DATE OF EXAM: 02/19/2024 4:06 PM COMPARISON: None CLINICAL INDICATION: Male, 74 years old with history of I63.239 CEREB INFRC DUE TO UNSP OCCLS OR STEN OS OF; Carotid stenosis. Hx of stents placed. TECHNIQUE: Axially acquired helical CT Angiogram of the Neck was obtained with and without contrast. Axial images are supplemented with coronal and sagittal MIP reconstructions. 3D reconstructions were also performed and were post-processed at an independent workstation. Estimated carotid stenosis was calculated using the NASCET criteria. Contrast used:100 ml mL of Isovue 370 with IV Contrast, Oral contrast used: , None. CT DLP: 425 mGycm, Automated exposure control for dose reduction was used. FINDINGS: CTA NECK: Right Carotid System: Occlusion of the right common carotid artery essentially from its origin with reconstitution of the r ight internal carotid artery at the north fork of [place]. Left Carotid System: The common carotid artery and external carotid artery are patent. Calcified plaque at the left caroti d bifurcation with less than 50% stenosis. Calcified plaque at the proximal internal carotid artery a lso present. Petrous portion of the left internal carotid artery demonstrates calcified plaque with u p to 25-50% stenosis. Conclusion of the bilateral vertebral arteries essentially from the origin with reconstitution near t he level of C4. The right vertebral artery extends into the cranium. Left vertebral artery at the harsha e and states scattered areas of occlusion with occlusion of the intracranial portion. Sternotomy wires are present. The heart is mildly enlarged for size. Severe coronary artery atheroscl erosis. There is a three-vessel aortic arch. The origins of the major vessels are patent. IMPRESSION: 1. Occlusion of the right common carotid artery essentially from its origin with reconstitution of t he right internal carotid artery at the north fork of [place]. 2. Extensive calcifications at the left carotid bifurcation and proximal left internal carotid arter y. Petrous portion of the left internal carotid artery demonstrates calcified plaque with up to 25-50 % stenosis. 3. Calcified plaque at the left carotid bifurcation with less than 50% stenosis. Calcified plaque at the proximal internal carotid artery also present. 4. Occlusion of the bilateral vertebral arteries extending from the origin to about the level of C4 where the right vertebral artery is patent extending into the intracranial portion. The left vertebra l artery demonstrates scattered areas of occlusion after C4 with occlusion of the intracranial portio n. [facility], , 02/20/2024 5:20 PM
== END | disposition home or self-care (01) ==
LOC: RADCTMAIN 13:15
PROVIDERS: ATTEND Internal Medicine Interventional Cardiology
DX: I65.23 Occlusion and stenosis of bilateral carotid arteries (principal); I25.10 Atherosclerotic heart disease of native coronary artery without angina pectoris
CPT/HCPCS: 82565; 84520; 70498; 36415; Q9967